=== PATIENT | female | born 1975 | race Caucasian/White ===

== ENCOUNTER 2018-05-30 06:33 | Inpatient (IN) | payer OTHER, SELFPAY ==
--- OUTSIDE RECORDS SUMMARY | 2018-05-30 06:36 | XMS REPORT | Clinical Summary ---
:1975 Author Organization [facility] Address [address] [place] [id number] Care Team Providers Name Role Phone Asked, No Pcp Primary Care Provider Unavailable Allergies Active Allergy Reactions Severity Noted Date Comments No Known Drug Allergies 04/28/2016 Medications Medication Sig Dispensed Refills Start Date End Date Status buPROPion XL Take 2 tablets 180 tablet 3 08/23/2016 Active (WELLBUTRIN XL) 150 (300 mg total) MG 24 hr by mouth daily. tabletIndications: Ataxia dextromethorphan-qu Take 1 capsule 180 capsule 3 08/23/2016 Active inidine (NUEDEXTA) by mouth every 20-10 mg capsule 12 (twelve) hours. dextromethorphan-qu Take 1 capsule 180 capsule 11 08/23/2016 Active inidine (NUEDEXTA) by mouth every 20-10 mg capsule 12 (twelve) hours. buPROPion XL Take 2 tablets 180 tablet 11 08/23/2016 08/23/2017 (WELLBUTRIN XL) 150 (300 mg total) MG 24 hr tablet by mouth daily. 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 Last Filed Vital Signs Not on file Plan of Treatment Health Maintenance Due Date Last Done Comments MMR VACCINES (1 of 1 - Standard 1974 series) VARICELLA VACCINES (1 of 2 - 2-dose 1986 adolescent series) CERVICAL CANCER SCREENING 1994 INFLUENZA VACCINE 02/08/2018 HEPATITIS B VACCINES Aged Out No longer eligible based on patient's age to complete this topic IPV VACCINES Aged Out No longer eligible based on patient's age to complete this topic MENINGOCOCCAL VACCINE Aged Out No longer eligible based on patient's age to complete this topic Results Not on fileafter 05/29/2017 Insurance Payer Benefit Plan / Group Subscriber ID Type Phone Address COMMERCIAL MISC MISC COMMERCIAL xxxxxxxxx Commercial Advance Directives Patient has advance care planning documents on file. For more information, please contact:Alfredo Wilkins[address] [place] [address]
[2018-05-30 07:31] LABS: Protime INR 1.23
[2018-05-30 07:33] LABS: Absolute Lymphocytes (CBC) 1.6 K/uL (0.7-4.9); Absolute Monocytes 0.7 K/uL (0.1-1.3); Absolute Neutrophil 10.7 K/uL (1.8-8.0); Basophils % 0.6 % (0-1.3); Eosinophils % 0.6 % (0-4.4); Lymphocytes % 12.3 % (15.3-44.8); MCH 31.6 pg (27.0-35.0); MCV 93.6 fL (80-100); Monocytes % 5.4 % (3.3-12.3); RBC Red Blood Cell Count 3.84 M/uL (3.86-4.86)
[2018-05-30 07:39] LABS: ALT/SGPT 17 U/L (12-78); AST/SGOT 10 U/L (15-37); Albumin 3.3 g/dL (3.4-5.0); Alkaline Phosphatase 63 U/L (45-117); BUN Blood Urea Nitrogen 9 mg/dL (7-18); Bicarbonate 26 mmol/L (21-32); Bilirubin Direct 0.2 mg/dL (0-0.2); Bilirubin Total 0.4 mg/dL (0.2-1.0); Glucose Level 163 mg/dL (74-106); Lipase 127 U/L (73-393); Magnesium 2.3 mg/dL (1.8-2.4); NT PRO-BNP 27 pg/mL (<125); Potassium 3.4 mmol/L (3.5-5.1); Protein, Total 7.8 g/dL (6.4-8.2); Sodium Level 136 mmol/L (136-145); Troponin (Emerg Dept Use Only) < 0.02 ng/mL (0.0-0.045)
[2018-05-30] MEDS ORDERED: VANCOMYCIN 1 GM/250 ML BAG ONE (07:46)
[2018-05-30] MEDS ORDERED: PIPER/TAZO/NS 3.375gm 3.375 GM/100 ML BAG ONE (07:46)
[2018-05-30] MEDS ORDERED: NA CHLORIDE 0.9% 1,000 ML ONE ×2 (07:46→19:02)
--- NOTE | 2018-05-30 08:23 | ER ---
Nurse's Notes [facility] Name: Vicky Black Age: 42 yrs Sex: Female : 1975 Arrival Date: 05/30/2018 Time: 06:35 Bed 6 Private MD: Diagnosis: Cutaneous abscess of perineum;Chest pain, unspecified;Dyspnea;Elevated white blood cell count Presentation: 05/30 06:45 Presenting complaint: Patient states: "rash with bumps" in groin X 1 week. pt c/o pain ak1 with ambulation. pt c/o pain to right calf with wound X1 week. 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 Transition of care: patient was not received from another setting of care. Onset of symptoms is unknown. Risk Assessment: Do you want to hurt yourself or someone else? Patient reports no desire to harm self or others. Initial Sepsis Screen: Does the patient meet any 2 criteria? No. Patient's initial sepsis screen is negative. Does the patient have a suspected source of infection? No. Patient's initial sepsis screen is negative. Care prior to arrival: None. 06:45 Method Of Arrival: Wheelchair ak1 06:45 Acuity: CHARITO 3 ak1 Triage Assessment: 06:49 General: Appears uncomfortable, obese, Behavior is cooperative. Pain: Complains of pain ak1 in pelvis. EENT: No signs and/or symptoms were reported regarding the EENT system. Neuro: No deficits noted. Cardiovascular: No deficits noted. Respiratory: Reports shortness of breath at rest on exertion no resp distress noted during triage. 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 - Social history:: Smoking status: Patient uses tobacco products, smokes one-half pack cigarettes per day. - Ebola Screening: : No symptoms or risks identified at this time. Screenin:51 Abuse screen: Denies threats or abuse. Denies injuries from another. Nutritional ak1 screening: No deficits noted. Tuberculosis screening: No symptoms or risk factors identified. Fall Risk None identified. Assessment: 06:44 General: Appears in no apparent distress. Behavior is calm, cooperative, appropriate rr5 for age. Pain: Denies pain. Neuro: Level of Consciousness is awake, alert, obeys commands, Oriented to person, place, time, situation, Appropriate for age. Cardiovascular: Capillary refill < 3 seconds Patient's skin is warm and dry. Cardiovascular: Rhythm is regular. Respiratory: Airway is patent Respiratory effort is even, unlabored, Respiratory pattern is regular, symmetrical, GI: Abdomen is round. : No signs and/or symptoms were reported regarding the genitourinary system. EENT: No signs and/or symptoms were reported regarding the EENT system. Derm: Skin has lesions on bilateral groin area. Derm: Skin Wound noted right lower leg Rash noted that is red. 06:51 Respiratory: Airway is patent Respiratory effort is. ak1 07:36 Reassessment: Patient appears in no apparent distress at this time. No changes from hb previously documented assessment. Patient and/or family updated on plan of care and expected duration. Pain level reassessed. 08:30 Reassessment: Patient appears in no apparent distress at this time. No changes from hb previously documented assessment. Patient and/or family updated on plan of care and expected duration. Pain level reassessed. 09:30 Reassessment: Patient appears in no apparent distress at this time. No changes from hb previously documented assessment. Patient and/or family updated on plan of care and expected duration. Pain level reassessed. 10:30 Reassessment: Patient appears in no apparent distress at this time. No changes from hb previously documented assessment. Patient and/or family updated on plan of care and expected duration. Pain level reassessed. 11:30 Reassessment: Patient appears in no apparent distress at this time. No changes from hb previously documented assessment. Patient and/or family updated on plan of care and expected duration. Pain level reassessed. 12:30 Reassessment: Patient appears in no apparent distress at this time. No changes from hb previously documented assessment. Patient and/or family updated on plan of care and expected duration. Pain level reassessed. 13:30 Reassessment: Patient appears in no apparent distress at this time. No changes from hb previously documented assessment. Patient and/or family updated on plan of care and expected duration. Pain level reassessed. Vital Signs: 06:49 BP 144 / 63; Pulse 88; Resp 20; Temp 99.3(O); Pulse Ox 97% on R/A; Weight 127.01 kg ak1 (R); Height 5 ft. 6 in. (167.64 cm) (R); Pain 10/10; 07:36 BP 135 / 68; Pulse 88; Resp 17; Pulse Ox 98% on R/A; hb 08:30 BP 136 / 66; Pulse 86; Resp 16; Pulse Ox 97% on R/A; hb 09:30 BP 128 / 68; Pulse 80; Resp 15; Pulse Ox 100% on R/A; hb 10:30 BP 142 / 66; Pulse 82; Resp 16; Pulse Ox 100% on R/A; Pain 0/10; hb 11:30 BP 138 / 68; Pulse 80; Resp 15; Pulse Ox 100% on R/A; hb 12:15 BP 140 / 72; Pulse 82; Resp 15; Pulse Ox 100% on R/A; hb 13:30 BP 142 / 82; Pulse 66; Resp 17; Pulse Ox 97% ; hb 06:49 Body Mass Index 45.19 (127.01 kg, 167.64 cm) ak1 ED Course: 06:35 Patient arrived in ED. am2 06:42 Jhony Leung MD is Attending Physician. [facility] 06:48 Triage completed. ak1 06:49 Arm band placed on Patient placed in an exam room, on a stretcher, Patient notified of ak1 wait time. 06:50 Inserted saline lock: 20 gauge in left antecubital area, using aseptic technique. rr5 ,using aseptic technique. inserted by eleni Blood collected. 06:51 Patient has correct armband on for positive identification. Bed in low position. Call ak1 light in reach. Side rails up X 1. Adult w/ patient. Pulse ox on. NIBP on. 07:00 Report given to tamiko TORO. rr5 07:04 X-ray completed. Portable x-ray completed in exam room. Patient tolerated procedure jb2 well. 07:05 Oral contrast given. kw1 07:31 Maribell Teague RN is Primary Nurse. hb 08:21 Patricia Torres MD is Hospitalizing Provider. gadiel 08:42 Straight cath inserted, using sterile technique, Returned clear yellow urine. Patient dh3 tolerated well. 15 Fr. specimen obtained. 09:02 Ultrasound completed. Patient tolerated well. Patient moved back from ultrasound. aa4 09:14 CT completed. Patient tolerated procedure well. Patient moved to CT via stretcher. Patient moved back from CT. 14:00 No provider procedures requiring assistance completed. sg 14:24 Patient admitted, IV remains in place. intact, No redness/swelling at site. sg Administered Medications: 07:50 Drug: NS 0.9% 1000 ml Route: IV; Rate: 75 ml/hr; Site: left antecubital; sg 07:50 Drug: Zosyn 3.375 grams Route: IVPB; Infused Over: 60 mins; Site: left antecubital; sg 09:00 Follow up: Response: No adverse reaction; IV Status: Completed infusion sg 11:05 Drug: vancoMYCIN 1 grams Route: IVPB; Infused Over: 2 hrs; Site: left antecubital; sg 14:09 Drug: traMADol 50 mg Route: PO; sg Outcome: 08:22 Decision to Hospitalize by Provider. gadiel 10:40 Admitted to ER Hold. Please see [facility] for further documentation. sg 14:27 Patient left the ED. sg Signatures: Yared Burgess RN Jhony Johnson MD MD cha Buechter, Jesse jb2 Jones, Susan sj Frazier, Amanda aaKaye Mason RN RN ak1 Maribell Teague RN RN Karen Mtz Gregoria Boss 3 Debra Banegas 1 Lon Buck, RN RN rr5 Corrections: (The following items were deleted from the chart) 07:13 06:44 Cardiovascular: Rhythm is rr5 rr5
--- NOTE | 2018-05-30 08:24 | EDPHYS ---
Physician Documentation [facility] Name: Vicky Black Age: 42 yrs Sex: Female : 1975 Arrival Date: 05/30/2018 Time: 06:35 Bed 6 Private MD: ED Physician Jhony Leung HPI: 05/30 06:53 This 42 yrs old Female presents to ER via Wheelchair with complaints of Rash, gadiel Shortness Of Breath. 06:53 The patient's rash thought to be caused by Dermatitis. The rash can be described as gadiel erythematous, pustular. Onset: The symptoms/episode began/occurred 7 day(s) ago. Associated signs and symptoms: Pertinent positives: difficulty breathing, Pain. Treatment given at home: none. 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 - Social history:: Smoking status: Patient uses tobacco products, smokes one-half pack cigarettes per day. - Ebola Screening: : No symptoms or risks identified at this time. ROS: 06:55 Constitutional: Negative for fever, chills, and weight loss, Eyes: Negative for injury, gadiel pain, redness, and discharge, ENT: Negative for injury, pain, and discharge, Neck: Negative for injury, pain, and swelling, Respiratory: Negative for shortness of breath, cough, wheezing, and pleuritic chest pain, Abdomen/GI: Negative for abdominal pain, nausea, vomiting, diarrhea, and constipation, Back: Negative for injury and pain, : Negative for injury, bleeding, discharge, and swelling, MS/Extremity: Negative for injury and deformity, Neuro: Negative for headache, weakness, numbness, tingling, and seizure, Psych: Negative for depression, anxiety, suicide ideation, homicidal ideation, and hallucinations, Allergy/Immunology: Negative for hives, rash, and allergies, Endocrine: Negative for neck swelling, polydipsia, polyuria, polyphagia, and marked weight changes, Hematologic/Lymphatic: Negative for swollen nodes, abnormal bleeding, and unusual bruising. 06:55 Skin: Positive for cellulitis, erythema, swelling, of the groin. Exam: 06:55 Constitutional: This is a well developed, well nourished patient who is awake, alert, gadiel and in no acute distress. Head/Face: Normocephalic, atraumatic. Eyes: Pupils equal round and reactive to light, extra-ocular motions intact. Lids and lashes normal. Conjunctiva and sclera are non-icteric and not injected. Cornea within normal limits. Periorbital areas with no swelling, redness, or edema. ENT: Nares patent. No nasal discharge, no septal abnormalities noted. Tympanic membranes are normal and external auditory canals are clear. Oropharynx with no redness, swelling, or masses, exudates, or evidence of obstruction, uvula midline. Mucous membranes moist. Neck: Trachea midline, no thyromegaly or masses palpated, and no cervical lymphadenopathy. Supple, full range of motion without nuchal rigidity, or vertebral point tenderness. No Meningismus. Chest/axilla: Normal chest wall appearance and motion. Nontender with no deformity. No lesions are appreciated. Cardiovascular: Regular rate and rhythm with a normal S1 and S2. No gallops, murmurs, or rubs. Normal PMI, no JVD. No pulse deficits. Respiratory: Lungs have equal breath sounds bilaterally, clear to auscultation and percussion. No rales, rhonchi or wheezes noted. No increased work of breathing, no retractions or nasal flaring. Abdomen/GI: Soft, non-tender, with normal bowel sounds. No distension or tympany. No guarding or rebound. No evidence of tenderness throughout. Back: No spinal tenderness. No costovertebral tenderness. Full range of motion. MS/ Extremity: Pulses equal, no cyanosis. Neurovascular intact. Full, normal range of motion. Neuro: Awake and alert, GCS 15, oriented to person, place, time, and situation. Cranial nerves II-XII grossly intact. Motor strength 5/5 in all extremities. Sensory grossly intact. Cerebellar exam normal. Normal gait. Psych: Awake, alert, with orientation to person, place and time. Behavior, mood, and affect are within normal limits. 06:55 Skin: abscess, that is moderate sized, of the groin, cellulitis, that is moderate, on the pelvis. 06:58 Musculoskeletal/extremity: DVT Exam: no pain, no swelling, no tenderness, negative [facility] Homans' sign noted on exam, no appreciated bluish discoloration, erythema, increased warmth, that is moderate, of the groin and right femoral area. Vital Signs: 06:49 BP 144 / 63; Pulse 88; Resp 20; Temp 99.3(O); Pulse Ox 97% on R/A; Weight 127.01 kg ak1 (R); Height 5 ft. 6 in. (167.64 cm) (R); Pain 10/10; 07:36 BP 135 / 68; Pulse 88; Resp 17; Pulse Ox 98% on R/A; hb 08:30 BP 136 / 66; Pulse 86; Resp 16; Pulse Ox 97% on R/A; hb 09:30 BP 128 / 68; Pulse 80; Resp 15; Pulse Ox 100% on R/A; hb 10:30 BP 142 / 66; Pulse 82; Resp 16; Pulse Ox 100% on R/A; Pain 0/10; hb 11:30 BP 138 / 68; Pulse 80; Resp 15; Pulse Ox 100% on R/A; hb 12:15 BP 140 / 72; Pulse 82; Resp 15; Pulse Ox 100% on R/A; hb 13:30 BP 142 / 82; Pulse 66; Resp 17; Pulse Ox 97% ; hb 06:49 Body Mass Index 45.19 (127.01 kg, 167.64 cm) ak1 MDM: 06:42 Patient medically screened. [facility] 06:56 Data reviewed: vital signs, nurses notes, lab test result(s), EKG, radiologic studies, [facility] CT scan, plain films. 05/30 06:53 Order name: Basic Metabolic Panel [facility] 05/30 06:53 Order name: CBC with Diff [facility] 05/30 06:53 Order name: LFT's [facility] 05/30 06:53 Order name: Magnesium [facility] 05/30 06:53 Order name: NT PRO-BNP [facility] 05/30 06:53 Order name: PT-INR [facility] 05/30 06:53 Order name: Troponin (emerg Dept Use Only) [facility] 05/30 06:53 Order name: Lipase [facility] 05/30 06:53 Order name: Blood Culture Adult (2) [facility] 05/30 06:53 Order name: Procalcitonin [facility] 05/30 06:53 Order name: Lactate [facility] 05/30 06:53 Order name: Urine Culture [facility] 05/30 06:53 Order name: Wound Culture [facility] 05/30 07:34 Order name: Protime (+INR); Complete Time: 08:13 [facility] 05/30 06:53 Order name: XRAY Chest (1 view) [facility] 05/30 06:58 Order name: CT Abd/Pelvis - W/Contrast [facility] 05/30 07:35 Order name: CBC with Automated Diff; Complete Time: 08:13 [facility] 05/30 07:40 Order name: Basic Metabolic Panel; Complete Time: 08:13 [facility] 05/30 07:40 Order name: Liver (Hepatic) Function; Complete Time: 08:13 [facility] 05/30 07:40 Order name: Troponin (Emerg Dept Use Only); Complete Time: 08:13 [facility] 05/30 07:40 Order name: NT PRO-BNP; Complete Time: 08:13 [facility] 05/30 07:40 Order name: Magnesium; Complete Time: 08:13 [facility] 05/30 07:40 Order name: Lipase; Complete Time: 08:13 [facility] 05/30 07:46 Order name: Lactate; Complete Time: 08:13 [facility] 05/30 08:16 Order name: US Extremity Venous W Compression Alvin [facility] 05/30 08:18 Order name: Procalcitonin; Complete Time: 12:35 [facility] 05/30 08:59 Order name: Urine Dipstick--Ancillary (enter results) 05/30 08:59 Order name: Urine --Ancillary (enter results) 05/30 10:00 Order name: Urine --Ancillary; Complete Time: 12:35 [facility] 05/30 10:00 Order name: Urine Dipstick-Ancillary; Complete Time: 12:35 [facility] 05/30 06:53 Order name: EKG; Complete Time: 06:54 [facility] 05/30 06:53 Order name: Cardiac monitoring; Complete Time: 06:57 [facility] 05/30 06:53 Order name: EKG - Nurse/Tech; Complete Time: 06:57 [facility] 05/30 06:53 Order name: IV Saline Lock; Complete Time: 07:06 [facility] 05/30 06:53 Order name: Labs collected and sent; Complete Time: 07:06 [facility] 05/30 06:53 Order name: O2 Per Protocol; Complete Time: 06:57 [facility] 05/30 06:53 Order name: O2 Sat Monitoring; Complete Time: 06:57 [facility] 05/30 06:53 Order name: Urine Dipstick-Ancillary (obtain specimen); Complete Time: 08:54 [facility] 05/30 08:21 Order name: CT Chest For PE Angio [facility] 05/30 09:08 Order name: RAD; Complete Time: 12:35 [facility] 05/30 09:35 Order name: US; Complete Time: 12:35 [facility] 05/30 09:38 Order name: CT; Complete Time: 12:35 [facility] 05/30 09:41 Order name: CT; Complete Time: 12:35 [facility] 05/30 10:47 Order name: Diet Regular; Complete Time: 10:48 hb Administered Medications: 07:50 Drug: NS 0.9% 1000 ml Route: IV; Rate: 75 ml/hr; Site: left antecubital; sg 07:50 Drug: Zosyn 3.375 grams Route: IVPB; Infused Over: 60 mins; Site: left antecubital; sg 09:00 Follow up: Response: No adverse reaction; IV Status: Completed infusion sg 11:05 Drug: vancoMYCIN 1 grams Route: IVPB; Infused Over: 2 hrs; Site: left antecubital; sg 14:09 Drug: traMADol 50 mg Route: PO; sg Disposition: 05/30/18 08:22 Hospitalization ordered by Patricia Torres for Inpatient Admission. Preliminary diagnosis are Cutaneous abscess of perineum, Chest pain, unspecified, Dyspnea, Elevated white blood cell count. - Bed requested for Telemetry/MedSurg (Inpatient). - Status is Inpatient Admission. sg - Condition is Fair. - Problem is new. - Symptoms have improved. UTI on Admission? No Signatures: Dispatcher [employer] EDMS Macie Elizondo Steven, RN RN sg Anderson, Corey, MD MD cha Krenek, Amber RN RN ak1 Iwona Vega RN RN df Corrections: (The following items were deleted from the chart) 10:40 08:22 Hospitalization Ordered by Patricia Torres MD for Inpatient Admission. Preliminary bd diagnosis is Cutaneous abscess of perineum; Chest pain, unspecified; Dyspnea; Elevated white blood cell count. Bed requested for Telemetry/MedSurg (Inpatient). Status is Inpatient Admission. Condition is Fair. Problem is new. Symptoms have improved. UTI on Admission? No. gadiel 12:41 10:40 05/30/2018 08:22 Hospitalization Ordered by Patricia Torres MD for Inpatient df Admission. Preliminary diagnosis is Cutaneous abscess of perineum; Chest pain, unspecified; Dyspnea; Elevated white blood cell count. Bed requested for [facility] ER HOLD. Status is Inpatient Admission. Condition is Fair. Problem is new. Symptoms have improved. UTI on Admission? No. bd 14:27 12:41 05/30/2018 08:22 Hospitalization Ordered by Patricia Torres MD for Inpatient sg Admission. Preliminary diagnosis is Cutaneous abscess of perineum; Chest pain, unspecified; Dyspnea; Elevated white blood cell count. Bed requested for Telemetry/MedSurg (Inpatient). Status is Inpatient Admission. Condition is Fair. Problem is new. Symptoms have improved. UTI on Admission? No. df
--- NOTE | 2018-05-30 09:07 | RAD REPORT ---
EXAM DESCRIPTION: RAD - Chest Single View - 05/30/2018 7:06 am CLINICAL HISTORY: Chest pain;Dyspnea Chest pain. COMPARISON: CHEST PA AND LAT 2 VIEW dated 10/30/2014 FINDINGS: Portable technique limits examination quality. The lungs are grossly clear. The heart is normal in size. No displaced fractures. IMPRESSION: No acute intrathoracic process suspected.
--- NOTE | 2018-05-30 09:33 | RAD REPORT ---
EXAM DESCRIPTION: US - Extrem Venous W Compress Alvin - 05/30/2018 9:00 am CLINICAL HISTORY: PAIN Bilateral leg edema and swelling. COMPARISON: No comparisons TECHNIQUE: Real-time sonographic interrogation of the left and right lower extremity deep venous sys tems was performed. FINDINGS: Normal compressibility, flow augmentation, phasic flow and spontaneous flow is identified in both the left and right lower extremity deep venous systems. IMPRESSION: No sonographic evidence of left or right lower extremity deep venous thrombosis.
--- NOTE | 2018-05-30 09:36 | EKG ---
Test Date: 2018-05-30 Test Time: 06:52:00 Dispatcher [employer]: ANA MEASUREMENT RESULTS: Intervals: Rate: 86 OK: 140 QRSD: 76 QT: 362 QTc: 433 [place]: P: 26 OK: 140 QRS: 50 T: 24 INTERPRETIVE STATEMENTS: Normal sinus rhythm Low voltage QRS Borderline ECG Compared to ECG 10/07/1995 20:08:00 Low QRS voltage now present Electronically Signed On 05-30-18 09:35:16 [employer] OPERATOR by Jordy Medina
--- NOTE | 2018-05-30 09:37 | RAD REPORT ---
EXAM DESCRIPTION: CT - Chest For Pe Angio - 05/30/2018 9:18 am CLINICAL HISTORY: Chest pain. Chest pain;Dyspnea COMPARISON: No comparisons TECHNIQUE: CT angiogram of the pulmonary arteries was performed with MIP. All CT scans are performed using dose optimization technique as appropriate and may include automated exposure control or mA/KV adjustment according to patient size. FINDINGS: No evidence of pulmonary thromboembolism. No acute aortic finding demonstrated. The lungs are clear. No significant pericardial or pleural fluid. No concerning bony finding. IMPRESSION: No evidence of pulmonary thromboembolism. No acute lung findings.
--- NOTE | 2018-05-30 09:41 | RAD REPORT ---
EXAM DESCRIPTION: CTAbdomen Pelvis W Contrast - 05/30/2018 9:18 am CLINICAL HISTORY: Abdominal pain. lower abd pain, right groin abscess;Abd pain COMPARISON: No comparisons TECHNIQUE: Biphasic CT imaging of the abdomen and pelvis was performed with 100 ml non-ionic IV cont rast. All CT scans are performed using dose optimization technique as appropriate and may include automated exposure control or mA/KV adjustment according to patient size. FINDINGS: The lung bases are clear. The liver, spleen, pancreas, adrenal glands and kidneys are within normal limits. Cholecystectomy cli ps. No bowel obstruction, free air, free fluid or abscess. The appendix is normal. No evidence of signi ficant lymphadenopathy. No suspicious bony findings. Inflammatory phlegmon with several enlarged lymph nodes is seen in the right groin without focal flui d collection to suggest abscess. IMPRESSION: Right groin phlegmon is present with several mildly prominent lymph nodes. No fluid angela ection seen to indicate abscess.
[2018-05-30 09:59] LABS: Urine Blood NEGATIVE (NEG); Urine Glucose NEGATIVE (NEG); Urine Protein NEGATIVE (NEG)
[2018-05-30] MEDS ORDERED: INFLUENZA VACCINE (for 3y+) 0.5 ML DOSE IMVAC ONE (14:00)
[2018-05-30] MEDS ORDERED: TRAMADOL HCL 50 MG TAB ONE (14:12)
[2018-05-30] MEDS ORDERED: ACETAMINOPHEN 500 MG TAB PO PRN (14:23)
[2018-05-30] MEDS ORDERED: ONDANSETRON 4 MG/2 ML VIAL IV PRN (14:23)
[2018-05-30] MEDS: NA CHLORIDE 0.9% 1,000 ML IV SCH ×2 (15:44→23:55)
[2018-05-30] MEDS: NICOTINE 14 MG/PAT TD SCH (15:44)
[2018-05-30 17:11] VITALS: BMI 39.1
--- NOTE | 2018-05-30 17:33 | P.HP ---
Certification for Inpatient Patient admitted to: Inpatient With expected LOS: >2 Midnights Patient will require the following post-hospital care: None Practitioner: I am a practitioner with admitting privileges, knowledge of patient current condition, hospital course, and medical plan of care. Services: Services provided to patient in accordance with Admission requirements found in Title 42 Section 412.3 of the Code of Federal Regulations Patient History Date of Service: 05/30/18 Reason for admission: Labial abscess History of Present Illness: This is a 42-year-old female with significant past medical history who presented to the ED complaining of having some vaginal pain. Patient stated that her rash pain has been going on for about 2-3 weeks and has got progressively worse. Patient noted that her right labial fold has some drainage that started about 2 weeks ago and has been getting progressively worse as well. Patient denies having any fever chills nausea vomiting or any other associated symptoms. Denies having similar episodes in the past. Patient states that overall she is in general state of health before this happened. Patient has not taken any antibiotics and has not seen her primary care provider regarding this. No other complaints to offer at this time -in the ER patient was found to have right groin abscess on the right labial region which was noted to be intubated and extensive in size and thus patient was admitted for further care Allergies No Known Allergies Allergy (Verified 05/30/18 14:51) Home Medications: Ibuprofen [Advil] 4 tab PO BID PRN 05/30/18 - Past Medical/Surgical History Has patient received pneumonia vaccine in the past: No -: Cerebellum Ataxia -: Section -: Tubal Ligation -: Cholecystectomy - Social History Smoking Status: Never smoker Alcohol use: No CD- Drugs: No Caffeine use: No Place of Residence: Home Review of Systems 10-point ROS is otherwise unremarkable Physical Examination - Vital Signs Temperature: 97.2 F Blood Pressure: 115/58 Pulse: 77 Respirations: 22 Pulse Ox (%): 96 - Physical Exam General: Alert, In no apparent distress HEENT: Atraumatic, PERRLA, Mucous membr. moist/pink, EOMI, Sclerae nonicteric Neck: Supple, 2+ carotid pulse no bruit, No LAD, Without JVD or thyroid abnormality Respiratory: Clear to auscultation bilaterally, Normal air movement Cardiovascular: Regular rate/rhythm, Normal S1 S2 Gastrointestinal: Normal bowel sounds, No tenderness Musculoskeletal: No tenderness Integumentary: Tenderness/swelling, Erythema, Warmth Neurological: Normal gait, Normal speech, Normal strength at 5/5 x4 extr, Normal tone, Normal affect Lymphatics: No axilla or inguinal lymphadenopathy External genitalia: Edema, Lesions, Tenderness (A right labial abscess which is intubated with small opening draining purulent discharge) - Studies Laboratory Data (last 24 hrs) 05/30/18 06:45: PT 14.5 H, INR 1.23 05/30/18 06:45: WBC 13.2 H, Hgb 12.2, Hct 36.0, Plt Count 215 05/30/18 06:45: Sodium 136, Potassium 3.4 L, BUN 9, Creatinine 0.70, Glucose 163 H, Magnesium 2.3, Total Bilirubin 0.4, AST 10 L, ALT 17, Alkaline Phosphatase 63, Lipase 127 Assessment and Plan - Problems (Diagnosis) (1) Abscess of right genital labia Current Visit: Yes Status: Acute Plan: Right labial abscess -general surgery consult at this time. Recommendations appreciated at this time -patient was planned to go to the OR today however patient went ahead and had her lunch despite the nursing staff telling her not to. Patient rescheduled for the OR tomorrow morning. -will continue with IV antibiotics at this time. -blood culture collected. Wound culture to be collected during the OR (2) Cellulitis of skin Current Visit: Yes Status: Acute Plan: See # 1. Discharge Plan: Home Plan to discharge in: 48 Hours - Advance Directives Does patient have a Living Will: No Does patient have a Durable POA for Healthcare: No - Code Status/Comfort Care Code Status Assessed: Yes Critical Care: No
[2018-05-30] MEDS: CLINDAMYCIN INJ 600 MG in NA CHLORIDE 0.9% 50 ML IV SCH ×2 (18:00→23:54)
[2018-05-30] MEDS ORDERED: LIDOCAINE 1% MPF 5 ML VIAL ONE (18:11)
[2018-05-30] MEDS ORDERED: MIDAZOLAM HCL 2 MG/2 ML INJ ONE (18:11)
[2018-05-30] MEDS ORDERED: PROPOFOL 200 MG/20 ML VIAL IV ONE (18:11)
[2018-05-30] MEDS ORDERED: FENTANYL CITR 100 MCG/2 ML ONE (18:11)
[2018-05-30] MEDS ORDERED: ONDANSETRON HCL 40 MG/20 ML VIAL ONE (18:12)
[2018-05-30] MEDS ORDERED: KETOROLAC 30 MG/ML INJ ONE (18:12)
[2018-05-30] MEDS ORDERED: BUPIVACAINE 0.25% PF 10 ML VIAL ONE (18:14)
[2018-05-30] MEDS ORDERED: BUPIVACA 0.25%/EPI 0.0005% MDV 50 ML VIAL ONE (18:14)
--- NOTE | 2018-05-30 18:36 | CON ---
Date of Consultation: 05/30/2018 SURGICAL CONSULT Brief History Of Present Illness: The patient is a 42-year-old female, who presents to the ER via wheelchair with rash and shortness of breath and draining fluid collection from the right mariann in area. She states that she started having drainage from the right groin with cellulitis, which has been continuously draining since then a purulent pus-type fluid. She has had some pain, irritation, and low-grade fevers associated with this. She states that the fluid will get more full and then ev entually spontaneously drain. She gets some symptomatic improvement, but no resolution with these. She states the symptoms have been worse over the past 7 days. Past Medical History: Significant for cerebellum ataxia. Past Surgical History: , tubal ligation, and cholecystectomy. Social History: She smokes half a pack per day. She has a 20+ pack-year history. Allergies: NO KNOWN DRUG ALLERGIES. Physical Examination: General: At the time of my examination, she is awake, alert, and oriented. Her BMI is approximately 45. Psychiatric: She is appropriate, conversive, sitting up in the chair. She is eating currently at 12 :30 and I told her to discontinue eating at this point. She only had a few bites of the meal though. HEENT: Her oropharynx is clear. She has poor dentition. Neck: Supple with no JVD. Chest: Normal expansion and excursion. Cardiovascular: Regular rate and rhythm. Pulmonary: Clear to auscultation bilaterally. Abdomen: Soft. Skin: Focused examination of the right groin area shows a draining groin abscess with tenderness in the area and cellulitis. There is purulent fluid emanating from this. Laboratory Data: She had a laboratory exam, reveals white blood cell count of 13.2, hemoglobin is 12 .2, her hematocrit is 36.0, platelet count is 215, neutrophils are 81%. Her PT is 14.5, INR 1.23. S odium 136, potassium 3.4, chloride 103, carbon dioxide 26, BUN 9, creatinine is 0.7, glucose is 163, lactic acid 0.8, magnesium 2.3, total bilirubin 0.4, alkaline phosphatase 53, procalcitonin is less t spivey 0.05, lipase 127. UA was essentially negative. Urine test was negative. She had mult iple imaging tests including a chest x-ray performed which is officially read as no acute intrathorac ic process suspected. She had an extremity venous study, which showed no evidence of DVT in the left or right lower extremity. She additionally had a CT chest, thorax CTA for PE protocol which showed no evidence of PE and no acute lung findings. She additionally had an abdomen and pelvis CT, which i s officially read as right groin phlegmon was present with several mildly prominent lymph nodes, no f luid collection was seen to indicate abscess, there was inflammatory phlegmon in the area though. Assessment And Plan: This is a 42-year-old female who comes in with signs and symptoms of a draining abscess, incompletely drained from the right groin. 1.IV fluid hydration. 2.Antibiotic coverage. 3.I have explained the risks, benefits, and alternatives of incision and drainage and opening of thi s abscess and packing with wound care and culture. She agrees to proceed as indicated. I have expla ined the risks, benefits, and alternatives of this plan which are including but not limited to bleedi ng, infection, damage to surrounding tissue, need for further operation or procedures. The patient a grees to proceed. CHARLA/CLAUDIA Voice ID: [id number] Report ID: [id number]
--- NOTE | 2018-05-30 18:49 | P.OP ---
Preoperative diagnosis: Right groin abscess Postoperative diagnosis: Right groin abscess Primary procedure: incision and drainage of Right groin abscess Anesthesia: MAC + Local Estimated blood loss: <15cc Specimen: cultures sent Findings: 4cm deep abscess with fat necrosis Complications: None Transferred to: Recovery Room Condition: Good
[2018-05-30] MEDS ORDERED: POTASSIUM CL SA 10 MEQ TAB PO ONE (21:00)
[2018-05-30] MEDS: TRAMADOL HCL 50 MG TAB PO PRN (21:31)
[2018-05-30] MEDS ORDERED: NA CHLORIDE 0.9% 50 ML ONE ×2 (23:12)
[2018-05-30] MEDS ORDERED: CLINDAMYCIN IV 150 MG/ML (6 mL) VIAL ONE (23:13)
--- NOTE | 2018-05-31 05:07 | OP ---
Date of Procedure: 05/30/2018 Surgeon: Mckayla Horton MD, Preoperative Diagnosis: Right groin abscess. Postoperative Diagnosis: Right groin abscess. Procedure Performed: Incision and drainage of right groin abscess. Anesthesia: MAC plus local. Estimated Blood Loss: Less than 15 cc. Specimen: Cultures were sent as a specimen for both aerobic and anaerobic culture. Findings: A 4 cm deep abscess with fat necrosis pushing towards the medial aspect of the pubic bone and pubic symphysis. Complications: None. Disposition: Transferred to recovery room in good condition. Procedure In Detail: After informed consent was obtained, the patient was brought to the operating r oom, prepped and draped in the usual sterile fashion. After adequate anesthesia achieved, a small pu nctate draining wound of the right groin area in the groin crease was used as a marker. This area of skin was opened for approximately 2 cm. Purulent fluid was obtained at this point and a multilocula mckayla abscess was appreciated with some fat necrosis evident. I digitally removed all septations and l oculations and found that the cavity was stretched in the superomedial aspect towards the pubic symph ysis in the superficial position onto the pubic mound and mons pubis region. It did not involve the labia. I cleaned out all septations and irrigated out all the necrotic tissue and used a curette to scrape out all remaining necrotic tissue at this point until only viable tissue was left behind. I t hen irrigated multiple times. Hemostasis was achieved with electrocautery and then the wound was irr igated one last time, inspected, and packed with half-inch plain packing and a sterile dressing was p laced over top. The patient tolerated the procedure well without evidence of complications, transfer red to the PACU in good condition. All counts were correct at the end of the case. CHARLA/CLAUDIA Voice ID: [id number] Report ID: [id number]
[2018-05-31] MEDS: CLINDAMYCIN INJ 600 MG in NA CHLORIDE 0.9% 50 ML IV SCH (05:12)
[2018-05-31] MEDS: TRAMADOL HCL 50 MG TAB PO PRN ×2 (05:12→10:21)
[2018-05-31 06:48] LABS: Absolute Lymphocytes (CBC) 1.5 K/uL (0.7-4.9); Absolute Monocytes 0.6 K/uL (0.1-1.3); Absolute Neutrophil 9.5 K/uL (1.8-8.0); Basophils % 0.3 % (0-1.3); Eosinophils % 1.1 % (0-4.4); Hematocrit 31.1 % (36.0-45.0); Lymphocytes % 12.4 % (15.3-44.8); MCH 31.8 pg (27.0-35.0); MCV 92.8 fL (80-100); MPV 8.9 fL (7.6-11.3); Monocytes % 4.8 % (3.3-12.3); RBC Red Blood Cell Count 3.36 M/uL (3.86-4.86)
[2018-05-31 07:14] LABS: ALT/SGPT 17 U/L (12-78); AST/SGOT 11 U/L (15-37); Alkaline Phosphatase 53 U/L (45-117); BUN Blood Urea Nitrogen 8 mg/dL (7-18); Bicarbonate 26 mmol/L (21-32); Bilirubin Total 0.4 mg/dL (0.2-1.0); Glucose Level 140 mg/dL (74-106); Phosphorus 3.3 mg/dL (2.5-4.9); Protein, Total 6.9 g/dL (6.4-8.2); Sodium Level 142 mmol/L (136-145)
[2018-05-31] MEDS: NICOTINE 14 MG/PAT TD SCH (10:20)
[2018-05-31] MEDS: NA CHLORIDE 0.9% 1,000 ML IV SCH (10:23)
--- NOTE | 2018-05-31 11:53 | P.PN ---
Subjective Date of Service: 05/31/18 Chief Complaint: Labial abscess Subjective: Improving (patient doing well, dressings clean) Physical Examination - Vital Signs Temperature: 98.3 F Blood Pressure: 113/53 Pulse: 82 Respirations: 20 Pulse Ox (%): 95 - Physical Exam General: Alert, In no apparent distress, Cooperative Integumentary: Other (wound well packed) Assessment And Plan - Current Problems (Diagnosis) (1) Cellulitis of skin Onset Date: 05/31/18 Current Visit: Yes Status: Acute Plan: - continue dressing changes
[2018-05-31 15:25] VITALS: O2SAT 95
--- NOTE | 2018-05-31 15:33 | ECHO ---
HEIGHT: 5 ft 8 in WEIGHT: 257 lb 1.6 oz DATE OF STUDY: 05/31/[address]: Jhony Leung MD 2-DIMENSIONAL: YES M.MODE: YES DOPPLER: YES COLOR FLOW: YES TDS: YES PORTABLE: DEFINITY: BUBBLE STUDY: DIAGNOSIS: CHEST PAIN AND SHORTNESS OF BREATH. CARDIAC HISTORY: CATHERIZATION: NO SURGERY: NO PROSTHETIC VALVE: NO PACEMAKER: NO MEASUREMENTS (cm) DIASTOLIC (NORMALS) SYSTOLIC (NORMALS) IVSd 1.3 (0.6-1.2) LA Diam 4.3 (1.9-4.0) LVEF 60-69% LVIDd 3.9 (3.5-5.7) LVIDs 3.0 (2.0-3.5) %FS 24% LVPWd 1.2 (0.6-1.2) Ao Diam 2.5 (2.0-3.7) 2 DIMENSIONAL ASSESSMENT: RIGHT ATRIUM: NORMAL LEFT ATRIUM: DILATED RIGHT VENTRICLE: NORMAL LEFT VENTRICLE: LEFT VENTRICULAR HYPERTROPHY TRICUSPID VALVE: NORMAL MITRAL VALVE: NORMAL PULMONIC VALVE: NORMAL AORTIC VALVE: NORMAL PERICARDIAL EFFUSION: NONE AORTIC ROOT: NORMAL LEFT VENTRICULAR WALL MOTION: NORMAL DOPPLER/COLOR FLOW: NORMAL COMMENTS: NORMAL LEFT VENTRICULAR EJECTION FRACTION. LEFT VENTRICULAR HYPERTROPHY. DILATED LEFT ATRIUM. NORMAL CARDIAC DOPPLER. TECHNOLOGIST: CHRISTO GANDARA
[2018-05-31 15:53] VITALS: BP 119/57; TEMP 99
--- NOTE | 2018-05-31 16:30 | P.DS ---
Admission Date: 05/30/18 Discharge Date: 05/31/18 Disposition: ROUTINE DISCHARGE Discharge Condition: GOOD Reason for Admission: Labial abscess - Problems (1) Abscess of right genital labia Onset Date: 05/31/18 Status: Acute (2) Cellulitis of skin Onset Date: 05/31/18 Status: Acute Brief History of Present Illness: This is a 42-year-old female with significant past medical history who presented to the ED complaining of having some vaginal pain. Patient stated that her rash pain has been going on for about 2-3 weeks and has got progressively worse. Patient noted that her right labial fold has some drainage that started about 2 weeks ago and has been getting progressively worse as well. Patient denies having any fever chills nausea vomiting or any other associated symptoms. Denies having similar episodes in the past. Patient states that overall she is in general state of health before this happened. Patient has not taken any antibiotics and has not seen her primary care provider regarding this. No other complaints to offer at this time -in the ER patient was found to have right groin abscess on the right labial region which was noted to be intubated and extensive in size and thus patient was admitted for further care Hospital Course: Overall during the hospital stay patient remained stable Patient was initially admitted to the hospital for right labial abscess. General surgery was consulted who did an I and D in the OR. Patient's abscess was drained completely. Patient was initially started on IV clindamycin was switched over to oral clindamycin. Patient's was taught how to do wound packing. Patient then was discharged home under stable condition was asked to follow up with general surgery in about 1-2 weeks post discharge. Patient was continued on clindamycin on discharge Vital Signs/Physical Exam: Temp Pulse Resp BP Pulse Ox 99 F 91 H 20 119/57 L 95 05/31/18 12:00 05/31/18 12:00 05/31/18 12:00 05/31/18 12:00 05/31/18 12:00 General: Alert, In no apparent distress HEENT: Atraumatic, PERRLA, EOMI Neck: Supple, JVD not distended Respiratory: Clear to auscultation bilaterally, Normal air movement Cardiovascular: Regular rate/rhythm, Normal S1 S2 Gastrointestinal: Normal bowel sounds, No tenderness Musculoskeletal: No tenderness Integumentary: Tenderness/swelling, Erythema Neurological: Normal speech, Normal tone, Normal affect Lymphatics: No axilla or inguinal lymphadenopathy Laboratory Data at Discharge: WBC 11.7 K/uL (4.3-10.9) H 05/31/18 05:54 Hgb 10.7 g/dL (12.0-15.0) L 05/31/18 05:54 Hct 31.1 % (36.0-45.0) L 05/31/18 05:54 Plt Count 199 K/uL (152-406) 05/31/18 05:54 PT 14.5 SECONDS (9.5-12.5) H 05/30/18 06:45 INR 1.23 05/30/18 06:45 Sodium 142 mmol/L (136-145) 05/31/18 05:54 Potassium 4.0 mmol/L (3.5-5.1) 05/31/18 05:54 BUN 8 mg/dL (7-18) 05/31/18 05:54 Creatinine 0.60 mg/dL (0.55-1.3) 05/31/18 05:54 Glucose 140 mg/dL (74-106) H 05/31/18 05:54 Phosphorus 3.3 mg/dL (2.5-4.9) 05/31/18 05:54 Magnesium 2.3 mg/dL (1.8-2.4) 05/30/18 06:45 Total Bilirubin 0.4 mg/dL (0.2-1.0) 05/31/18 05:54 AST 11 U/L (15-37) L 05/31/18 05:54 ALT 17 U/L (12-78) 05/31/18 05:54 Alkaline Phosphatase 53 U/L (45-117) 05/31/18 05:54 Lipase 127 U/L (73-393) 05/30/18 06:45 Home Medications: Clindamycin HCl 300 mg PO QID #40 capsule 05/31/18 Codeine/APAP [Tylenol W/Codeine #3 tab] 1 tab PO Q6HP PRN #15 tab 05/31/18 New Medications: Codeine/APAP [Tylenol W/Codeine #3 tab] 1 tab PO Q6HP PRN #15 tab PRN Reason: Pain Clindamycin HCl 300 mg PO QID #40 capsule Diet: Regular Activity: Ad harrison Followup: Duncan Horton MD [ACTIVE - CAN ADMIT] - 1-2 Weeks (Call for appointment.)
== END 2018-05-31 15:02 | disposition home health service (06) | DRG 603 ==
LOC: ER 06:33 → ERHOLD 08:23 → 2ND 13:26
PROVIDERS: ADMIT Family Medicine; ATTEND Family Medicine
PROC: 0H9AXZZ Drainage of Inguinal Skin, External Approach (ICD-10-PCS; principal; 2018-05-30 18:30)
DX: L02.214 Cutaneous abscess of groin (principal)
CPT/HCPCS: 36415; 51702; 71045; 71275; 74177; 80048; 80053; 80076; 81003; 81025; 83605; 83690; 83735; 83880; 84100; 84145; 84484; 85025; 85610; 87040; 87070; 87075; 87077; 87086; 87088; 87186; 87205; 93005; 93306; 93970; 96365; 96375; 99285; G0008; J2250; J2405; J2543; J2704; J3010; J3370; J7030; Q2035; Q9967

== ENCOUNTER 2019-08-15 16:08 | Inpatient (IN) | payer OTHER, SELFPAY ==
--- OUTSIDE RECORDS SUMMARY | 2019-08-15 16:10 | XMS REPORT ---
:1975 [facility] Address [address] [place] [address] Care Team Providers Name Role Phone Unavailable Unavailable Unavailable Problems This patient has no known problems. Allergies, Adverse Reactions, Alerts This patient has no known allergies or adverse reactions. Medications This patient has no known medications.
[2019-08-15] MEDS ORDERED: METHYLPREDNISOLONE 125 MG INJ ONE (16:16)
[2019-08-15] MEDS ORDERED: LEVALBUTEROL 1.25 MG/3 ML NEB ONE (16:16)
[2019-08-15] MEDS ORDERED: NA CHLORIDE 0.9% 500 ML ONE (16:16)
[2019-08-15] MEDS ORDERED: MAGNESIUM SULFATE 1 gm IVPB 1 GM/100 ML BAG IV ONE (16:16)
[2019-08-15 16:33] LABS: Absolute Lymphocytes (CBC) 0.7 K/uL (0.7-4.9); Basophils % 0.1 % (0-1.3); Hematocrit 38.2 % (36.0-45.0); Lymphocytes % 8.6 % (15.3-44.8); RBC Red Blood Cell Count 4.02 M/uL (3.86-4.86)
[2019-08-15] MEDS ORDERED: CEFTRIAXONE/SWI 1gm 1 GM/10 ML SYR ONE (17:02)
[2019-08-15 17:06] LABS: Potassium 3.1 mmol/L (3.5-5.1); Troponin (Emerg Dept Use Only) 0.4 ng/mL (0.0-0.045)
--- NOTE | 2019-08-15 17:07 | RAD REPORT ---
EXAM DESCRIPTION: RAD - Chest Single View - 08/15/2019 4:42 pm CLINICAL HISTORY: DYSPNEA Chest pain. COMPARISON: Chest Single View dated 05/30/2018; CHEST PA AND LAT 2 VIEW dated 10/30/2014 FINDINGS: Portable technique limits examination quality. Interstitial markings are mildly prominent likely indicating bronchitis or viral pneumonitis. The hea rt is upper limit of normal in size. No displaced fractures.
--- NOTE | 2019-08-15 17:41 | EDPHYS ---
Physician Documentation [facility] Name: Vicky Black Age: 43 yrs Sex: Female : 1975 Arrival Date: 08/15/2019 Time: 16:10 Bed 3 Private MD: Galo Stringer V ED Physician Kyle Dempsey HPI: 08/15 16:17 This 43 yrs old Female presents to ER via Unassigned with complaints of rn Breathing Difficulty. 16:17 The patient has shortness of breath at rest. Onset: The symptoms/episode began/occurred rn today. Duration: The symptoms are continuous. The patient's shortness of breath has no apparent modifying factors. Severity of symptoms: At their worst the symptoms were moderate in the emergency department the symptoms are unchanged. It is unknown whether or not the patient has had similar symptoms in the past. The patient has not recently seen a physician. states fever last night, cough, difficulty breathing today, no trauma. Reports full code and intubation if needs.. 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 - Coronavirus screen:: The patient has NOT traveled to [place], [place], or [place] in the past 14 days. - Family history:: not pertinent. - Social history:: Smoking status: Patient reports the use of cigarette tobacco products, smokes one-half pack cigarettes per day. - Hospitalizations: : No recent hospitalization is reported. - Ebola Screening: : Patient denies travel to an Ebola-affected area in the 21 days before illness onset. 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 ENT: dry MM, no stridor or swelling Neck: No JVD Cardiovascular: Tachycardic, regular Respiratory: + moderate tachypnea with shallow breaths, poor inspiratory air movement, + grunting Abdomen/GI: soft, non-tender MS/ Extremity: Pulses equal, no cyanosis. Neurovascular intact Neuro: Awake, repsonds to voice and answers questions, moderate respiratory distress Vital Signs: 16:15 BP 131 / 67; Pulse 128; Resp 48 S; Temp 98(O); Pulse Ox 64% on R/A; ca1 16:22 Temp 101.3(TE); sg 16:25 Weight 111.13 kg; sg 16:28 Weight 111.13 kg (R); tw2 16:40 BP 96 / 23; Pulse 121; Resp 39; Pulse Ox 100% on 50% BiPAP; tw2 16:44 BP 101 / 33; Pulse 121; Resp 40; Pulse Ox 98% on BiPAP; tw2 16:49 BP 108 / 76; Pulse 120; Resp 37; Pulse Ox 97% on BiPAP; tw2 17:07 BP 93 / 70; Pulse 116; Resp 38; Temp 98.4(TE); Pulse Ox 97% on BiPAP; tw2 17:19 BP 108 / 55; Pulse 114; Resp 34; Pulse Ox 99% on BiPAP; tw2 17:57 BP 106 / 77; Pulse 112; Resp 33; Temp 102.3(C); Pulse Ox 95% on BiPAP; tw2 18:25 BP 104 / 57; Pulse 110; Resp 36; Temp 101.9(C); Pulse Ox 95% on BiPAP; tw2 18:40 BP 105 / 56; Pulse 107; Resp 29 A; Pulse Ox 95% on BiPAP; Pain 0/10; jl7 19:15 BP 101 / 56; Pulse 101; Resp 34; Temp 100.8(C); Pulse Ox 95% on 50% BiPAP; lp1 20:06 BP 103 / 57; Pulse 99; Resp 29; Temp 99.6(C); Pulse Ox 96% on 50% BiPAP; lp1 16:40 15/8 rate 30 tw2 MDM: 16:13 Patient medically screened. rn 17:38 Differential diagnosis: pneumonia, Pneumothorax pulmonary edema, Sepsis. Data reviewed: rn vital signs, nurses notes, lab test result(s), EKG, radiologic studies, plain films, and as a result, I will admit patient. Counseling: I had a detailed discussion with the patient and/or guardian regarding: the historical points, exam findings, and any diagnostic results supporting the discharge/admit diagnosis, lab results, radiology results, the need for further work-up and treatment in the hospital. Response to treatment: the patient's symptoms have mildly improved after treatment, and as a result, I will admit patient. Admission orders: after a detailed discussion of the patient's condition and case, the admit orders are written by me. ED course: Pt feels better, vitals improving, ABG ok, on bipap, will increase rate and admit to ICU.. 18:07 ED course: Spoke with Dr. Stringer, will admit to ICU. . rn 08/15 16:15 Order name: Blood Culture Adult (2) rn 08/15 16:15 Order name: BMP rn 08/15 16:15 Order name: CBC with Diff rn 08/15 16:15 Order name: NT PRO-BNP rn 08/15 16:15 Order name: Troponin (emerg Dept Use Only) rn 08/15 16:15 Order name: Procalcitonin rn 08/15 16:15 Order name: Lactate rn 08/15 16:15 Order name: Flu rn 08/15 16:36 Order name: Glucose, Ancillary Testing; Complete Time: 16:52 EDMS 08/15 16:42 Order name: CBC with Automated Diff; Complete Time: 16:52 EDMS 08/15 16:44 Order name: Lactate; Complete Time: 16:52 EDMS 08/15 16:52 Order name: Influenza Screen (A ; Complete Time: 16:52 EDMS 08/15 16:59 Order name: ABG rn 08/15 17:05 Order name: Procalcitonin; Complete Time: 17:06 EDMS 08/15 16:15 Order name: XRAY CXR (1 view) rn 08/15 16:15 Order name: BIPAP rn 08/15 17:09 Order name: Basic Metabolic Panel; Complete Time: 17:14 EDMS 08/15 17:09 Order name: Troponin (Emerg Dept Use Only); Complete Time: 17:14 EDMS 08/15 17:09 Order name: NT PRO-BNP; Complete Time: 17:14 EDMS 08/15 17:14 Order name: RAD; Complete Time: 17:14 EDMS 08/15 17:56 Order name: ABG Arterial Blood Gas; Complete Time: 18:06 EDMS 08/15 17:59 Order name: Urine Dipstick--Ancillary (enter results) bd 08/15 18:20 Order name: Urine Dipstick-Ancillary EDMS 08/15 16:15 Order name: EKG; Complete Time: 16:15 rn 08/15 16:15 Order name: Cardiac monitoring; Complete Time: 16:26 rn 08/15 16:15 Order name: EKG - Nurse/Tech; Complete Time: 16:26 rn 08/15 16:15 Order name: IV Saline Lock; Complete Time: 16:26 rn 08/15 16:15 Order name: Labs collected and sent; Complete Time: 16:26 rn 08/15 16:15 Order name: O2 Per Protocol; Complete Time: 16:27 rn 08/15 16:15 Order name: O2 Sat Monitoring; Complete Time: 16:27 rn 08/15 17:44 Order name: Feliciano; Complete Time: 17:58 sg Administered Medications: 16:20 Drug: SOLU-Medrol 125 mg Route: IVP; Site: right antecubital; tw2 16:43 Follow up: Response: No adverse reaction tw2 16:20 Drug: NS 0.9% 500 ml Route: IV; Rate: bolus; Site: right antecubital; tw2 17:03 Follow up: Response: No adverse reaction; IV Status: Completed infusion; IV Intake: jl7 500ml 16:25 Drug: Magnesium Sulfate 1 grams {Note: per Dr. Dempsey.} Route: IVPB; Infused Over: 20 tw2 mins; Site: right antecubital; 17:02 Follow up: Response: No adverse reaction; IV Status: Completed infusion jl7 16:28 Drug: Xopenex (3) 1.25 mg {Note: via bipap.} Route: Inhalation; tw2 17:03 Follow up: Response: No adverse reaction jl7 17:00 Drug: Rocephin - (cefTRIAXone) 1 grams {Note: IVP available only from pharmacy.} Route: tw2 IVPB; Infused Over: 5 mins; Site: right antecubital; 17:05 Follow up: Response: No adverse reaction; IV Status: Completed infusion tw2 17:40 Drug: Zithromax 500 mg Route: IVPB; Infused Over: 1 hrs; Site: right antecubital; sg 18:42 Follow up: Response: No adverse reaction; IV Status: Completed infusion jl7 17:43 Drug: NS 0.9% 1000 ml Route: IV; Rate: 1000 ml; Site: right antecubital; sg 18:15 Follow up: IV Intake: 1000ml jl7 18:41 Follow up: Response: No adverse reaction; IV Status: Completed infusion jl7 18:14 Drug: Motrin 800 mg Route: PO; jl7 18:41 Follow up: Response: No adverse reaction; Temperature is decreased jl7 18:15 Drug: Tamiflu 75 mg Route: PO; jl7 18:41 Follow up: Response: No adverse reaction jl7 Disposition: 17:38 Critical Care:. rn Disposition: 08/15/19 17:40 Hospitalization ordered by Galo Stringer for Inpatient Admission. Preliminary diagnosis are Pneumonia, Influenza due to other identified influenza virus, Hypoxemia, Sepsis, unspecified organism. - Bed requested for Intensive Care Unit. - Status is Inpatient Admission. lp1 - Condition is Fair. - Problem is new. - Symptoms have improved. Critical care time excluding procedures: 17:38 Critical care time: Bedside Care: 25 minutes, Consultation: 5 minutes, Family rn Intervention: 5 minutes. Total time: 35 minutes Signatures: Dispatcher [employer] EDMS Yared Burgess RN RN Kyle Costa MD MD rn Pena, Laura, RN RN lp1 Alan Pereira, UX DESIGNER-C UX DESIGNER-Cla1 Lynn Duckworth RN RN tl1 Anny Gonzalez RN RN tw2 Stephan Shannon RN RN jl7 Vicky Tellez RN RN ca1 Corrections: (The following items were deleted from the chart) 19:26 17:40 Hospitalization Ordered by Galo Stringer MD for Inpatient Admission. Preliminary tl1 diagnosis is Pneumonia; Influenza due to other identified influenza virus; Hypoxemia; Sepsis, unspecified organism. Bed requested for Intensive Care Unit. Status is Inpatient Admission. Condition is Fair. Problem is new. Symptoms have improved. rn 20:27 19:26 08/15/2019 17:40 Hospitalization Ordered by Galo Stringer MD for Inpatient lp1 Admission. Preliminary diagnosis is Pneumonia; Influenza due to other identified influenza virus; Hypoxemia; Sepsis, unspecified organism. Bed requested for Intensive Care Unit. Status is Inpatient Admission. Condition is Fair. Problem is new. Symptoms have improved. tl1
--- NOTE | 2019-08-15 17:41 | ER ---
Nurse's Notes [facility] Name: Vicky Black Age: 43 yrs Sex: Female : 1975 Arrival Date: 08/15/2019 Time: 16:10 Bed 3 Private MD: Galo Stringer V Diagnosis: Pneumonia;Influenza due to other identified influenza virus;Hypoxemia;Sepsis, unspecified organism Presentation: 08/15 16:15 Presenting complaint: states: Difficulty breathing started around 10am today. ca1 Feeling sick since yesterday. Transition of care: patient was not received from another setting of care. Onset of symptoms was August 15, 2019. Risk Assessment: Do you want to hurt yourself or someone else? Patient reports no desire to harm self or others. Initial Sepsis Screen: Does the patient meet any 2 criteria? RR > 20 per min. HR > 90 bpm. Yes Does the patient have a suspected source of infection? Yes: Productive cough/pneumonia Other: family reports pt having a cough. Care prior to arrival: None. 16:15 Method Of Arrival: Wheelchair ca1 16:15 Acuity: CHARITO 1 jl7 Triage Assessment: 16:45 General: Behavior is listless. Respiratory: Reports significant other reports she has tw2 been feeling short of breath since 10 am Onset: The symptoms/episode began/occurred this morning. 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 - Coronavirus screen:: The patient has NOT traveled to [place], [place], or [place] in the past 14 days. - Family history:: not pertinent. - Social history:: Smoking status: Patient reports the use of cigarette tobacco products, smokes one-half pack cigarettes per day. - Hospitalizations: : No recent hospitalization is reported. - Ebola Screening: : Patient denies travel to an Ebola-affected area in the 21 days before illness onset. Screenin:32 Abuse screen: Denies threats or abuse. Nutritional screening: No deficits noted. tw2 Tuberculosis screening: No symptoms or risk factors identified. Fall Risk Secondary diagnosis (15 points) impaired mobility. 18:10 The patient has not been NPO before screening. The patient is currently on the jl7 following diet: regular The patient is alert, able to follow commands. The patient does not exhibit slurred or garbled speech The patient is not exhibiting difficulty speaking. The patient does not exhibit difficulty understanding words. The patient is able to swallow own secretions with no drooling or need for suction. Patient tolerated one teaspoon of water. No drooling, immediate coughing, gurgling, or clearing of the throat was noted. The patient tolerated 90mL of water. No drooling, immediate coughing, gurgling, or clearing of the throat was noted. The patient passed the bedside swallow screening. Oral medications may be given as ordered. Contact Physician for further diet orders. Provider notified of bedside swallow screening results: Kyle Dempsey MD. Assessment: 16:14 Reassessment: Dr. Dempsey and provider JORGE Phillips at bedside as well as MUNA Rothman, non tw2 rebreather applied at 15L at this time, verbal orders for medications given. 16:15 General: Appears distressed, ill. Pain: Denies pain. Neuro: Level of Consciousness is jl7 awake, alert, obeys commands. Cardiovascular: Heart tones present Rhythm is sinus tachycardia. Respiratory: Airway is patent Respiratory effort is even, labored, Respiratory pattern is symmetrical, tachypnea Breath sounds with rhonchi the patient has severe shortness of breath. Derm: Skin is dry, Skin is normal, Skin temperature is cool. 16:22 Reassessment: a code sepsis has been called, notified. sg 16:34 Reassessment: per significant other at bedside "she normally grunts like that everyday".tw2 16:40 Cardiovascular: Rhythm is sinus tachycardia. tw2 17:00 Reassessment: RT paged for the ABG. sg 17:20 Reassessment: RT paged for ABG. Reassessment: IVA Parr at bedside for ABG at this time. sg 18:20 Reassessment: Patient and/or family updated on plan of care and expected duration. Pain jl7 level reassessed. Patient is alert, oriented x 3, equal unlabored respirations, skin warm/dry/pink. Patient states feeling better. Patient states symptoms have improved. 19:24 Reassessment: Significant other at bedside; Aware of pending admission. General: lp1 Appears in no apparent distress. Behavior is calm. Pain: Denies pain. Neuro: Level of Consciousness is awake, obeys commands, Oriented to person, place. Cardiovascular: Capillary refill < 3 seconds in bilateral fingers toes Patient's skin is warm and dry. Respiratory: Airway is patent Trachea midline Respiratory effort is labored, Respiratory pattern is symmetrical, BiPAP in place; grunting noise, per significant other, normal for patient Breath sounds are coarse bilaterally. GI: Abdomen is obese. : Feliciano in place to gravity drainage. EENT: No signs and/or symptoms were reported regarding the EENT system. Derm: Skin is intact, Skin is dry, Skin is normal, Skin temperature is warm. Musculoskeletal: No deficits noted. Vital Signs: 16:15 BP 131 / 67; Pulse 128; Resp 48 S; Temp 98(O); Pulse Ox 64% on R/A; ca1 16:22 Temp 101.3(TE); sg 16:25 Weight 111.13 kg; sg 16:28 Weight 111.13 kg (R); tw2 16:40 BP 96 / 23; Pulse 121; Resp 39; Pulse Ox 100% on 50% BiPAP; tw2 16:44 BP 101 / 33; Pulse 121; Resp 40; Pulse Ox 98% on BiPAP; tw2 16:49 BP 108 / 76; Pulse 120; Resp 37; Pulse Ox 97% on BiPAP; tw2 17:07 BP 93 / 70; Pulse 116; Resp 38; Temp 98.4(TE); Pulse Ox 97% on BiPAP; tw2 17:19 BP 108 / 55; Pulse 114; Resp 34; Pulse Ox 99% on BiPAP; tw2 17:57 BP 106 / 77; Pulse 112; Resp 33; Temp 102.3(C); Pulse Ox 95% on BiPAP; tw2 18:25 BP 104 / 57; Pulse 110; Resp 36; Temp 101.9(C); Pulse Ox 95% on BiPAP; tw2 18:40 BP 105 / 56; Pulse 107; Resp 29 A; Pulse Ox 95% on BiPAP; Pain 0/10; jl7 19:15 BP 101 / 56; Pulse 101; Resp 34; Temp 100.8(C); Pulse Ox 95% on 50% BiPAP; lp1 20:06 BP 103 / 57; Pulse 99; Resp 29; Temp 99.6(C); Pulse Ox 96% on 50% BiPAP; lp1 16:40 15/8 rate 30 tw2 ED Course: 16:10 Patient arrived in ED. mr 16:10 Galo Stringer MD is Private Physician. mr 16:13 Kyle Dempsey MD is Attending Physician. rn 16:14 Bed in low position. Call light in reach. Side rails up X2. Adult w/ patient. Cardiac tw2 monitor on. Pulse ox on. NIBP on. 16:15 Arm band placed on right wrist. ca1 16:15 Inserted saline lock: 20 gauge in right antecubital area, using aseptic technique. tw2 ,using aseptic technique. per MUNA Rothman Blood collected. 16:15 Initial lab(s) drawn, by ky, sent to lab. First set of blood cultures drawn by ky. jl7 16:22 Triage completed. ca1 16:25 Inserted saline lock: 20 gauge in left antecubital area, using aseptic technique. tw2 16:25 Second set of blood cultures drawn by me. jl7 16:47 Stephan Shannon, RN is Primary Nurse. jl7 17:00 Awaiting: antibiotic from pharmacy, order was faxed at 1700. tw2 17:36 Awaiting: antibiotic from pharmacy, Charge nurse MUNA Vail called pharmacy at this tw2 time checking on status of antibiotics. 17:39 Galo Stringer MD is Hospitalizing Provider. rn 18:00 Speci-cath kit inserted, using sterile technique, 16 Fr., specimen obtained. returned jl7 carlos urine. Patient tolerated well. 19:26 No provider procedures requiring assistance completed. Patient admitted, IV remains in lp1 place. Administered Medications: 16:20 Drug: SOLU-Medrol 125 mg Route: IVP; Site: right antecubital; tw2 16:43 Follow up: Response: No adverse reaction tw2 16:20 Drug: NS 0.9% 500 ml Route: IV; Rate: bolus; Site: right antecubital; tw2 17:03 Follow up: Response: No adverse reaction; IV Status: Completed infusion; IV Intake: jl7 500ml 16:25 Drug: Magnesium Sulfate 1 grams {Note: per Dr. Dempsey.} Route: IVPB; Infused Over: 20 tw2 mins; Site: right antecubital; 17:02 Follow up: Response: No adverse reaction; IV Status: Completed infusion jl7 16:28 Drug: Xopenex (3) 1.25 mg {Note: via bipap.} Route: Inhalation; tw2 17:03 Follow up: Response: No adverse reaction jl7 17:00 Drug: Rocephin - (cefTRIAXone) 1 grams {Note: IVP available only from pharmacy.} Route: tw2 IVPB; Infused Over: 5 mins; Site: right antecubital; 17:05 Follow up: Response: No adverse reaction; IV Status: Completed infusion tw2 17:40 Drug: Zithromax 500 mg Route: IVPB; Infused Over: 1 hrs; Site: right antecubital; sg 18:42 Follow up: Response: No adverse reaction; IV Status: Completed infusion jl7 17:43 Drug: NS 0.9% 1000 ml Route: IV; Rate: 1000 ml; Site: right antecubital; sg 18:15 Follow up: IV Intake: 1000ml jl7 18:41 Follow up: Response: No adverse reaction; IV Status: Completed infusion jl7 18:14 Drug: Motrin 800 mg Route: PO; jl7 18:41 Follow up: Response: No adverse reaction; Temperature is decreased jl7 18:15 Drug: Tamiflu 75 mg Route: PO; jl7 18:41 Follow up: Response: No adverse reaction jl7 Intake: 17:03 IV: 500ml; Total: 500ml. jl7 18:15 IV: 1000ml; Total: 1500ml. jl7 Outcome: 17:40 Decision to Hospitalize by Provider. rn 19:26 critical lp1 19:26 Instructed on the need for admit. 20:14 Admitted to ICU accompanied by nurse, via stretcher, room 8, with oxygen, on monitor, lp1 with chart, Report called to MUNA Jack 20:27 Patient left the ED. lp1 Signatures: Yared Burgess RN MUNA AnsariLana Roman, MD MD rn Pena, Laura RN MUNA lp1 Anny Gonzalez RN RN tw2 Stephan Shannon RN RN jl7 Vicky Tellez RN RN ca1 Corrections: (The following items were deleted from the chart) 16:42 16:15 Initial Sepsis Screen: Does the patient meet any 2 criteria? RR > 20 per min. HR sg > 90 bpm. Yes Does the patient have a suspected source of infection? ca1 16:45 16:40 BP 96 / 23; Pulse 121bpm; Resp 39bpm; Pulse Ox 100% BiPAP; tw2 tw2 16:52 16:15 Acuity: CHARITO 2 ca1 sg 16:53 16:49 BP 108 / 76; Pulse 120bpm; Resp 36bpm; Pulse Ox 97% BiPAP; tw2 tw2 17:09 17:07 BP 93 / 70; Pulse 116bpm; Resp 38bpm; Pulse Ox 97% BiPAP; tw2 tw2 18:39 18:25 BP 104 / 57; Pulse 110bpm; Resp 36bpm; Pulse Ox 95% BiPAP; Temp 102.2F Catheter; tw2 tw2 19:28 19:24 Respiratory: Airway is patent Trachea midline Respiratory effort is labored, lp1 Respiratory pattern is symmetrical, BiPAP in place Breath sounds are coarse bilaterally. lp1
[2019-08-15] MEDS ORDERED: NA CHLORIDE 0.9% 1,000 ML ONE (17:44)
[2019-08-15 17:53] LABS: Blood O2 Saturation 94.7 % (92-98.5)
[2019-08-15 17:54] LABS: Arterial Blood Carboxyhemoglob 1.9 % (0-1.5); Blood Gas Oxyhemoglobin 92.1 % (94-97)
[2019-08-15] MEDS ORDERED: AZITHROMYCIN IV 500 MG in NA CHLORIDE 0.9% 250 ML IVPB ONE (18:00)
[2019-08-15] MEDS ORDERED: ACETAMINOPHEN 650MG/RECT SUPP PR ONE (18:02)
[2019-08-15] MEDS ORDERED: OSELTAMIVIR 75 MG CAP ONE (18:09)
[2019-08-15] MEDS ORDERED: IBUPROFEN 400 MG TAB ONE (18:09)
[2019-08-15 18:19] LABS: Urine Blood NEGATIVE (NEG); Urine Glucose 2+ (NEG); Urine Protein 1+ (NEG)
[2019-08-15] MEDS: METHYLPREDNISOLONE 40 MG INJ IV SCH (20:27)
[2019-08-15] MEDS ORDERED: ONDANSETRON 4 MG/2 ML VIAL IV PRN (20:27)
[2019-08-15] MEDS ORDERED: ALBUTEROL 2.5 MG/3 ML NEB SOL NEB PRN (20:27)
[2019-08-15] MEDS: NS KCL 20MEQ 20 MEQ/1,000 ML BAG IV SCH (20:27)
[2019-08-15] MEDS ORDERED: IPRATROPIUM BROM 0.5MG/2.5ML NEB PRN (20:27)
[2019-08-15] MEDS ORDERED: NS KCL 20MEQ 1,000 ML IV ONE (20:36)
[2019-08-15] MEDS ORDERED: CEFTRIAXONE/SWI 1gm 1 GM/10 ML SYR IV SCH (21:00)
[2019-08-15] MEDS ORDERED: D50W 25 GM/50 ML SYRINGE/VIAL IV PRN (21:17)
[2019-08-15] MEDS ORDERED: GLUCAGON 1 MG/VIAL IM PRN (21:17)
[2019-08-15] MEDS: OSELTAMIVIR 75 MG CAP PO SCH (21:22)
[2019-08-15] MEDS: INSULIN -REGULAR HUMAN 50 UNIT/0.5 ML ML SQ SCH (22:06)
[2019-08-15] MEDS ORDERED: KCL 20 MEQ/100 mL IVPB 20 MEQ/100 ML BAG IV SCH (23:00)
[2019-08-15] MEDS: Enoxaparin 120 MG/0.8 ML SYR SQ SCH (23:28)
[2019-08-16] MEDS: INSULIN -REGULAR HUMAN 50 UNIT/0.5 ML ML SQ SCH ×4 (00:01→22:05)
[2019-08-16] MEDS: METHYLPREDNISOLONE 40 MG INJ IV SCH ×2 (00:02→05:42)
[2019-08-16 05:15] LABS: Absolute Lymphocytes (CBC) 0.8 K/uL (0.7-4.9); Basophils % 0.2 % (0-1.3); Hematocrit 35.8 % (36.0-45.0); Lymphocytes % 10.9 % (15.3-44.8); MPV 9.1 fL (7.6-11.3); RBC Red Blood Cell Count 3.78 M/uL (3.86-4.86)
[2019-08-16 05:36] LABS: BUN Blood Urea Nitrogen 14 mg/dL (7-18); Bicarbonate 29 mmol/L (21-32); Glucose Level 334 mg/dL (74-106); Magnesium 2.3 mg/dL (1.8-2.4); NT PRO-BNP 824 pg/mL (<125); Potassium 3.6 mmol/L (3.5-5.1); Sodium Level 139 mmol/L (136-145)
[2019-08-16] MEDS: NS KCL 20MEQ 20 MEQ/1,000 ML BAG IV SCH (06:21)
[2019-08-16] MEDS ORDERED: KCL 20 MEQ/100 mL IVPB 20 MEQ/100 ML BAG IV SCH (07:00)
[2019-08-16] MEDS: OSELTAMIVIR 75 MG CAP PO SCH ×2 (08:22→22:05)
[2019-08-16] MEDS: DULOXETINE 30 MG CAP PO SCH (08:22)
[2019-08-16] MEDS: GLIMEPIRIDE 2 MG TABLET PO SCH (08:22)
[2019-08-16] MEDS: VITAMIN D 1000 UNIT TAB PO SCH (08:22)
[2019-08-16] MEDS: METFORMIN HCL 500 MG TAB PO SCH ×2 (08:22→18:18)
[2019-08-16 08:25] LABS: HDL Cholesterol 29 mg/dL (40-60); LDL, Direct 66 mg/dL (100-129)
--- NOTE | 2019-08-16 08:58 | P.CNS ---
Date of Consult: 08/16/19 Reason for Consult: Respiratory failure Chief Complaint: Respiratory failure History of Present Illness: Patient is 43 years of age former heavy smoker admitted with acute onset of dyspnea not feeling well very weak and appeared in the hospital she has an inhaler at home no prior diagnosis of COPD she is not on any oxygen with smoking recently patient has cerebellar ataxia difficulty ambulate doing better since admission Allergies No Known Allergies Allergy (Verified 05/30/18 14:51) Home Medications: Cholecalciferol (Vitamin D3) [Vitamin D3] 1,000 unit PO DAILY 08/15/19 Duloxetine HCl 60 mg PO DAILY 08/15/19 - Past Medical/Surgical History Diabetic: No -: Cerebellum Ataxia -: Possible COPD -: Section -: Tubal Ligation -: Cholecystectomy - Family History Mother Medical History: Hypertension - Social History Smoking Status: Current every day smoker Alcohol use: No CD- Drugs: No Caffeine use: Yes Place of Residence: Home Review of Systems 10-point ROS is otherwise unremarkable General: Weakness Respiratory: Cough, Shortness of Breath Physical Examination Temp Pulse Resp BP Pulse Ox 98.7 F 85 18 115/69 99 08/16/19 00:00 08/16/19 06:00 08/16/19 06:00 08/16/19 06:00 08/16/19 06:00 General: Alert, In no apparent distress, Oriented x3 Respiratory: Expiratory wheezes Cardiovascular: No edema, Regular rate/rhythm, Normal S1 S2 Gastrointestinal: Normal bowel sounds, Soft and benign Laboratory Data (last 24 hrs) 08/15/19 16:17: WBC 8.6, Hgb 12.7, Hct 38.2, Plt Count 163 08/15/19 16:17: Sodium 134 L, Potassium 3.1 L, BUN 17, Creatinine 1.00, Glucose 401 H* - Problems (1) COPD exacerbation Current Visit: Yes Status: Acute Plan: Patient is 43 years of age admitted with acute respiratory distress presume COPD exacerbation patient is hypoxic hypercapnic mild elevation of troponin pro calcitonin level elevated normal white count chest x-ray nonspecific changes patient is off BiPAP doing much better change to p.o. Zithromax continue with Rocephin influenza A-positive labs diagnostic data reviewed change to p.o. prednisone patient will need outpatient workup including PFTs console not to smoke stable to be transferred to the floor Dc BiPAP
[2019-08-16] MEDS ORDERED: AZITHROMYCIN IV 250 MG in NA CHLORIDE 0.9% 250 ML IVPB SCH (09:00)
[2019-08-16] MEDS: Enoxaparin 120 MG/0.8 ML SYR SQ SCH ×2 (10:13→22:05)
[2019-08-16] MEDS: AZITHROMYCIN 250 MG TAB PO SCH (10:14)
[2019-08-16] MEDS: DULERA 200/5 (MOMETASONE/FORMOTEROL) INHALER IH SCH ×2 (10:14→22:06)
[2019-08-16] MEDS: CEFTRIAXONE/SWI 1gm 1 GM/10 ML SYR IV SCH ×2 (10:15→22:07)
[2019-08-16] MEDS: predniSONE 20 MG TAB PO SCH ×2 (10:16→22:04)
--- NOTE | 2019-08-16 10:25 | EKG ---
Test Date: 2019-08-15 Test Time: 16:14:30 Stack Yield Engineer: SWG MEASUREMENT RESULTS: Intervals: Rate: 118 MD: 140 QRSD: 84 QT: 342 QTc: 479 [place]: P: 51 MD: 140 QRS: 58 T: 28 INTERPRETIVE STATEMENTS: Sinus tachycardia Low voltage QRS Cannot rule out Anterior infarct, age undetermined Abnormal ECG Compared to ECG 05/30/2018 06:52:00 questionable myocardial infarct finding now present Sinus rhythm no longer present Electronically Signed On 08-16-19 10:24:58 VEHICLE MODIFICATION TECHNICIAN by Krunal Cintron
--- NOTE | 2019-08-16 13:02 | P.HP ---
Certification for Inpatient Patient admitted to: Inpatient With expected LOS: >2 Midnights Practitioner: I am a practitioner with admitting privileges, knowledge of patient current condition, hospital course, and medical plan of care. 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 SPONDYLITIS AND COPD COMES WITH FEVER, DYSPNEA AND WAS FOUND TO HAVE FLU WITH COPD EXACERBATION. SHE IS NOW IN ICU. Allergies No Known Allergies Allergy (Verified 05/30/18 14:51) Home Medications: Cholecalciferol (Vitamin D3) [Vitamin D3] 1,000 unit PO DAILY 08/15/19 Duloxetine HCl 60 mg PO DAILY 08/15/19 - Past Medical/Surgical History Has patient received pneumonia vaccine in the past: No Diabetic: No -: Cerebellum Ataxia -: Possible COPD -: Section -: Tubal Ligation -: Cholecystectomy - Family History Mother -: Hypertension - Social History Smoking Status: Current every day smoker Alcohol use: No CD- Drugs: No Caffeine use: Yes Place of Residence: Home Review of Systems 10-point ROS is otherwise unremarkable General: Weakness, Malaise Respiratory: Shortness of Breath Physical Examination - Vital Signs Temperature: 98.7 F Blood Pressure: 115/69 Pulse: 85 Respirations: 18 Pulse Ox (%): 99 - Physical Exam General: Alert, Moderate distress, Obese HEENT: Atraumatic, PERRLA, Mucous membr. moist/pink, EOMI, Sclerae nonicteric Neck: Supple, 2+ carotid pulse no bruit, No LAD, Without JVD or thyroid abnormality Respiratory: Diminished Cardiovascular: Regular rate/rhythm, Normal S1 S2 Gastrointestinal: Normal bowel sounds, No tenderness Musculoskeletal: No tenderness Integumentary: No rashes Neurological: Normal speech, Abnormal gait (NOT ABLE TO AMBULATE FROM C. ATAXIA. SHE HAS TWO NEUROLOGISTS. ) Lymphatics: No axilla or inguinal lymphadenopathy - Studies Laboratory Data (last 24 hrs) 08/15/19 16:17: WBC 8.6, Hgb 12.7, Hct 38.2, Plt Count 163 08/15/19 16:17: Sodium 134 L, Potassium 3.1 L, BUN 17, Creatinine 1.00, Glucose 401 H* Microbiology Data (last 24 hrs): 08/15/19 16:17 Nasopharnyx Influenza Type A Antigen Screen - Final 08/15/19 16:17 Nasopharnyx Influenza Type B Antigen Screen - Final Assessment and Plan - Problems (Diagnosis) (1) Influenza Current Visit: Yes Status: Acute Plan: SHE IS FLU A POS. RESUME TAMIFLU BID RESP SUPPORT. (2) Newly diagnosed diabetes Current Visit: Yes Status: Acute Plan: START GLIMEPRIDE, AND METFORMIN. FS AC HS. A1C IS 9. 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 (4) Elevated troponin Current Visit: Yes Status: Acute Plan: MOSTLY FROM PULMONARY RELATED CARDIAC STRESS. CARBURETOR EXPERT TO SEE PTDarron ALMONTE WHEN STABLE. (5) COPD exacerbation Current Visit: Yes Status: Acute Plan: NEBS. SEROIDS. ABX. DR. LOPEZ. - Advance Directives Does patient have a Living Will: No Does patient have a Durable POA for Healthcare: No
--- NOTE | 2019-08-16 13:08 | CON ---
Mrs. Black is 43. She came to the hospital with generalized malaise and weakness of the muscles. Dalila alva has been found to have influenza A. There is not evidence of coexisting pneumonia. Chest x-ray lo oks normal. She was not having chest pain. She does not have EKG abnormalities that suggest an acut e [place]. Troponins were measured and they were elevated. The highest one is about 1.17. She has had 2 other slightly lower. It is not the typical rise and fall you see with an acute coronary syndrome. The patient has never had diabetes, hypertension, dyslipidemia, myocardial infarction, stroke, any v ascular surgeries. Home medications have been vitamin D3 and duloxetine. She is multigravid. She h ad a labial abscess that was lysed several years ago. No other significant past history. Physical Examination: General: She is alert, oriented, pleasant, 5 feet 7 inches, 252 pounds, obese. Lungs: Clear. Heart: Within normal limits. Abdomen: Soft. Extremities: Diminished distal pulses but palpable. She is a regular tobacco user. Since she has influenza and is on isolation, not having chest pain, neeta e certainly do not need to vasquez to do a heart cath. I would like to do an echocardiogram today to se alva what we learn, and next week perhaps as an outpatient do a cardiac cath on her to see whether she h as CAD or not. Viral syndromes often will cause a small rise in troponin levels without significant coronary heart disease, but probably the only way to know for sure what she has is to do a heart cath . She needs to quit using tobacco and she needs to start seeing a family doctor and get diabetes, previously undiagnosed, under control . DALILA/NOEMIL Voice ID: [id number] Report ID: [id number]
[2019-08-16] MEDS: IPRATROPIUM BROM 0.5MG/2.5ML NEB SCH ×2 (13:15→20:10)
[2019-08-16] MEDS ORDERED: NICOTINE 14 MG/PAT TD SCH (15:42)
[2019-08-16] MEDS ORDERED: INSULIN -REGULAR HUMAN 50 UNIT/0.5 ML ML IV SCH (16:30)
[2019-08-16] MEDS: JUVEN PACKET PO SCH (21:00)
[2019-08-17] MEDS: IPRATROPIUM BROM 0.5MG/2.5ML NEB SCH ×4 (01:50→19:30)
[2019-08-17 06:42] VITALS: BMI 38.6
[2019-08-17 07:06] LABS: Absolute Lymphocytes (CBC) 1.1 K/uL (0.7-4.9); Basophils % 0.4 % (0-1.3); Hematocrit 34.5 % (36.0-45.0); Lymphocytes % 8.4 % (15.3-44.8); MPV 9.8 fL (7.6-11.3); RBC Red Blood Cell Count 3.66 M/uL (3.86-4.86)
[2019-08-17 07:10] LABS: BUN Blood Urea Nitrogen 9 mg/dL (7-18); Bicarbonate 32 mmol/L (21-32); Glucose Level 208 mg/dL (74-106); Magnesium 2.3 mg/dL (1.8-2.4); Phosphorus 1.9 mg/dL (2.5-4.9); Sodium Level 140 mmol/L (136-145)
[2019-08-17] MEDS: GLIMEPIRIDE 2 MG TABLET PO SCH (08:16)
[2019-08-17] MEDS: METFORMIN HCL 500 MG TAB PO SCH ×2 (08:16→16:27)
[2019-08-17] MEDS: DULOXETINE 30 MG CAP PO SCH (08:16)
[2019-08-17] MEDS: Enoxaparin 120 MG/0.8 ML SYR SQ SCH (08:17)
[2019-08-17] MEDS: JUVEN PACKET PO SCH ×2 (08:17→20:28)
[2019-08-17] MEDS: DULERA 200/5 (MOMETASONE/FORMOTEROL) INHALER IH SCH (08:17)
[2019-08-17] MEDS: CEFTRIAXONE/SWI 1gm 1 GM/10 ML SYR IV SCH (08:18)
[2019-08-17] MEDS: OSELTAMIVIR 75 MG CAP PO SCH ×2 (08:19→20:28)
[2019-08-17] MEDS: AZITHROMYCIN 250 MG TAB PO SCH (08:19)
[2019-08-17] MEDS: VITAMIN D 1000 UNIT TAB PO SCH (08:19)
[2019-08-17] MEDS: INSULIN -REGULAR HUMAN 50 UNIT/0.5 ML ML SQ SCH ×4 (08:21→20:27)
[2019-08-17] MEDS: predniSONE 20 MG TAB PO SCH ×2 (08:23→20:28)
[2019-08-17 08:49] LABS: Blood Morphology Comment NOT SEEN (NOT SEEN); Platelet Estimate ADEQ
[2019-08-17] MEDS: TRAMADOL HCL 50 MG TAB PO PRN ×3 (09:16→22:10)
[2019-08-17] MEDS: LIDOCAINE 4% PATCH TOP SCH (09:16)
[2019-08-17] MEDS ORDERED: POTASSIUM PHOS IN 0.9 % NACL 15 MMOL/250 ML BAG IV ONE (10:00)
--- NOTE | 2019-08-17 10:46 | PN ---
Ms. Black seems to be doing better. Again, her enzymes are up. She has influenza. She retains a lo t of CO2. Her pCO2 was 55.6 when she did a blood gas a few days ago. This probably accounts for the elevated troponin without EKG changes or chest pain. I am reluctant to call this an [place]. Diagnostic test of choice to see if she has coronary heart disease is a cardiac cath. After she is completely over the flu and feels well, I will recommend a cardiac cath. She is stable enough that she could be discharged and come back for the cardiac cath as an outpatient. DALILA/CLAUDIA Voice ID: [id number] Report ID: [id number]
[2019-08-17] MEDS: NICOTINE 14 MG/PAT TD SCH (10:58)
[2019-08-17] MEDS ORDERED: NA CHLORIDE 0.9% 250 ML ONE (11:00)
[2019-08-17] MEDS: ARFORMOTEROL TARTRATE 15 MCG/2 ML VIAL.NEB NEB SCH ×2 (11:02→19:30)
--- NOTE | 2019-08-17 11:06 | P.PN ---
Subjective Date of Service: 08/17/19 Chief Complaint: COPD exacerbation Patient states that she is not any better infectious worse still has cough congestion shortness of breath Review of Systems General: Weakness Respiratory: Cough, Shortness of Breath Physical Examination - Vital Signs Temperature: 98.0 F Blood Pressure: 116/67 Pulse: 86 Respirations: 19 Pulse Ox (%): 96 - Physical Exam General: Alert, In no apparent distress Respiratory: Expiratory wheezes Gastrointestinal: Normal bowel sounds, Soft and benign Assessment & Plan - Problems (Diagnosis) (1) COPD exacerbation Current Visit: Yes Status: Acute Plan: Patient admitted with COPD exacerbation states that she is not any better continue with steroids antibiotics no evidence of obvious sepsis can change to p.o. antibiotic blood cultures negative minimal interstitial changes change to p.o. levofloxacin I have added Brovana nebulized daily room air pulse ox
[2019-08-17] MEDS: levoFLOXacin 500 MG TAB PO SCH (12:01)
--- NOTE | 2019-08-17 15:06 | ECHO ---
HEIGHT: 5 ft 8 in WEIGHT: 254 lb 4.8 oz DATE OF STUDY: 08/17/[address]: Irving Godinez MD 2-DIMENSIONAL: YES M.MODE: YES DOPPLER: YES COLOR FLOW: YES TDS: YES PORTABLE: NO DEFINITY: NO BUBBLE STUDY: NO DIAGNOSIS: CHRONIC OBSTRUCTIVE PULMONARY DISEASE CARDIAC HISTORY: CATHERIZATION: NO SURGERY: NO PROSTHETIC VALVE: NO PACEMAKER: NO MEASUREMENTS (cm) DIASTOLIC (NORMALS) SYSTOLIC (NORMALS) IVSd 1.2 (0.6-1.2) LA Diam 3.6 (1.9-4.0) LVEF 60% LVIDd 4.9 (3.5-5.7) LVIDs 3.3 (2.0-3.5) %FS 32% LVPWd 1.3 (0.6-1.2) Ao Diam 2.9 (2.0-3.7) 2 DIMENSIONAL ASSESSMENT: RIGHT ATRIUM: NORMAL LEFT ATRIUM: NORMAL RIGHT VENTRICLE: NORMAL LEFT VENTRICLE: NORMAL TRICUSPID VALVE: NORMAL MITRAL VALVE: NORMAL PULMONIC VALVE: NORMAL AORTIC VALVE: NORMAL PERICARDIAL EFFUSION: NONE AORTIC ROOT: NORMAL LEFT VENTRICULAR WALL MOTION: NORMAL. DOPPLER/COLOR FLOW: TRACE OF MITRAL REGURGITATION. COMMENTS: NORMAL 2D ECHO. TRACE OF MITRAL REGURGITATION. TECHNOLOGIST: BJ RAMIREZ
[2019-08-17] MEDS ORDERED: Enoxaparin 120 MG/0.8 ML SYR SQ SCH (21:00)
[2019-08-18] MEDS: IPRATROPIUM BROM 0.5MG/2.5ML NEB SCH ×4 (01:15→19:25)
--- NOTE | 2019-08-18 01:41 | PN ---
Subjective: Ms. Black is doing lot better. She is still short of breath, but not as bad as throat c ongestion. Physical Examination: Vital Signs: Blood pressure 120/70, pulse is 94, temperature 98.0. HEENT: No JVD. No carotid bruits. Patient has extensive facial hair. Chest: Clear. Decreased breath sounds bilaterally. Heart: Irregular. Laboratory Examination: White count 12,000 on steroids, otherwise stable. Assessment And Plan: 1.Chronic obstructive pulmonary disease exacerbation. Continue medications. She is on prednisone n ow, but oral prednisone and will be tapering off. 2.Flu and strep throat. Continue current medications. 3.Diabetes mellitus, which is new for her. She is on glimepiride and metformin now. Sugars trendin g down to 140 instead of 400. RVD/MODL Voice ID: [id number] Report ID: [id number]
[2019-08-18 06:27] LABS: Absolute Lymphocytes (CBC) 1.2 K/uL (0.7-4.9); Basophils % 0.1 % (0-1.3); Lymphocytes % 13.4 % (15.3-44.8); MPV 9.1 fL (7.6-11.3); RBC Red Blood Cell Count 3.78 M/uL (3.86-4.86)
[2019-08-18 06:43] LABS: BUN Blood Urea Nitrogen 10 mg/dL (7-18); Bicarbonate 35 mmol/L (21-32); Glucose Level 157 mg/dL (74-106); Magnesium 2.3 mg/dL (1.8-2.4); Phosphorus 2.7 mg/dL (2.5-4.9); Potassium 3.6 mmol/L (3.5-5.1); Sodium Level 139 mmol/L (136-145)
[2019-08-18] MEDS: INSULIN -REGULAR HUMAN 50 UNIT/0.5 ML ML SQ SCH ×4 (07:30→21:10)
[2019-08-18] MEDS: ARFORMOTEROL TARTRATE 15 MCG/2 ML VIAL.NEB NEB SCH ×2 (08:02→19:25)
[2019-08-18] MEDS: levoFLOXacin 500 MG TAB PO SCH (08:42)
[2019-08-18] MEDS: predniSONE 20 MG TAB PO SCH (08:42)
[2019-08-18] MEDS: OSELTAMIVIR 75 MG CAP PO SCH ×2 (08:42→21:10)
[2019-08-18] MEDS: DULOXETINE 30 MG CAP PO SCH (08:42)
[2019-08-18] MEDS: GLIMEPIRIDE 2 MG TABLET PO SCH (08:42)
[2019-08-18] MEDS: LIDOCAINE 4% PATCH TOP SCH (08:42)
[2019-08-18] MEDS: METFORMIN HCL 500 MG TAB PO SCH ×2 (08:43→16:46)
[2019-08-18] MEDS: VITAMIN D 1000 UNIT TAB PO SCH (08:43)
[2019-08-18] MEDS: NICOTINE 14 MG/PAT TD SCH (08:43)
[2019-08-18] MEDS: JUVEN PACKET PO SCH ×3 (08:44→21:00)
[2019-08-18] MEDS ORDERED: POTASSIUM CL SA 10 MEQ TAB PO ONE (09:00)
[2019-08-18] MEDS ORDERED: Enoxaparin 120 MG/0.8 ML SYR SQ SCH (09:00)
--- NOTE | 2019-08-18 11:15 | P.PN ---
Subjective Date of Service: 08/18/19 Chief Complaint: COPD exacerbation Subjective: Improving CHEYL HAS IMPROVED TO 70% SHE SAYS. SHE STILL HAS DYSPNEA. SHE WILL POSSIBLY GO HOME IN AM. Review of Systems 10-point ROS is otherwise unremarkable General: Weakness, Malaise Cardiovascular: As per HPI Physical Examination - Vital Signs Temperature: 98.9 F Blood Pressure: 135/75 Pulse: 88 Respirations: 20 Pulse Ox (%): 99 - Physical Exam General: Mild distress, Moderate distress, Obese, Other (HIRSITUISM.) HEENT: Atraumatic, PERRLA, EOMI Neck: Supple, JVD not distended Respiratory: Clear to auscultation bilaterally, Normal air movement Cardiovascular: Regular rate/rhythm, Normal S1 S2 Gastrointestinal: Normal bowel sounds, No tenderness Musculoskeletal: No tenderness Integumentary: No rashes Neurological: Normal speech, Normal tone, Normal affect Lymphatics: No axilla or inguinal lymphadenopathy - Studies Medications List Reviewed: Yes Assessment And Plan - Current Problems (Diagnosis) (1) Influenza Current Visit: Yes Status: Acute Plan: SHE IS FLU A POS. RESUME TAMIFLU BID RESP SUPPORT. IMPROVED WELL. (2) Newly diagnosed diabetes Current Visit: Yes Status: Acute Plan: START GLIMEPRIDE, AND METFORMIN. FS AC HS. A1C IS 9. 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 (4) Elevated troponin Current Visit: Yes Status: Acute Plan: MOSTLY FROM PULMONARY RELATED CARDIAC STRESS. 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 (5) COPD exacerbation Current Visit: Yes Status: Acute Plan: NEBS. SEROIDS. ABX. DR. LOPEZ. (6) Hirsutism Current Visit: Yes Status: Chronic Plan: SHE HAS BEEN THROUGH ENDOCRINE EVAL. WILL FU ON THIS.
--- NOTE | 2019-08-18 14:44 | PN ---
Ms. Black remains compromised from influenza. She seems to be making some progress. Vital signs are good. She is not having chest pain. She would not be ready to do a heart catheterization and I thi nk it is probably better to get the flu as good as we can discharge her and give her a week or 2 befo re we do a heart cath. There is no urgency to it at all. I think we will probably learn her cardiac enzymes were related to a viral syndrome and not to an actual acute coronary syndrome. DALILA/CLAUDIA Voice ID: [id number] Report ID: [id number]
[2019-08-19] MEDS: IPRATROPIUM BROM 0.5MG/2.5ML NEB SCH ×3 (01:40→14:30)
[2019-08-19] MEDS: INSULIN -REGULAR HUMAN 50 UNIT/0.5 ML ML SQ SCH ×3 (07:30→16:34)
[2019-08-19] MEDS: ARFORMOTEROL TARTRATE 15 MCG/2 ML VIAL.NEB NEB SCH (07:50)
[2019-08-19] MEDS: JUVEN PACKET PO SCH (09:00)
[2019-08-19] MEDS ORDERED: predniSONE 20 MG TAB PO SCH (09:00)
[2019-08-19] MEDS ORDERED: ENOXAPARIN 40 MG/0.4 ML SQ SCH (09:00)
[2019-08-19] MEDS: NICOTINE 14 MG/PAT TD SCH (09:05)
[2019-08-19] MEDS: METFORMIN HCL 500 MG TAB PO SCH ×2 (09:06→16:34)
[2019-08-19] MEDS: levoFLOXacin 500 MG TAB PO SCH (09:06)
[2019-08-19] MEDS: DULOXETINE 30 MG CAP PO SCH (09:06)
[2019-08-19] MEDS: GLIMEPIRIDE 2 MG TABLET PO SCH (09:06)
[2019-08-19] MEDS: VITAMIN D 1000 UNIT TAB PO SCH (09:06)
[2019-08-19] MEDS: OSELTAMIVIR 75 MG CAP PO SCH ×2 (09:06→16:34)
[2019-08-19] MEDS: LIDOCAINE 4% PATCH TOP SCH (09:15)
[2019-08-19] MEDS: TRAMADOL HCL 50 MG TAB PO PRN (09:28)
[2019-08-19] MEDS ORDERED: POTASSIUM 25 MEQ EFFERV TAB PO ONE (09:43)
--- NOTE | 2019-08-19 10:01 | P.DS ---
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 SPONDYLITIS AND COPD COMES WITH FEVER, DYSPNEA AND WAS FOUND TO HAVE FLU WITH COPD EXACERBATION. SHE IS NOW IN ICU. Hospital Course: MS. LEWIS CAME WITH DYSPNEA, RESPIRATORY FALIURE, COPD FROM SMOKING, INFLUENZA AND STREP POSITIVE RESPIRATORY INFECTION. IT TOOK HER FEW DAYS TO IMPROVE. SHE IS NOW FEELING GREAT AFTER TAMIFLU, LEVAQUI AND NEBS AND FEW DAYS OF STEROIDS. SHE HAS NEW ONSET DM. SHE HAS DONE WELL ON TWO MEDS. I WILL CONTINUE THEM AND SHE WILL FU IN OFFICE IN A WEEK OR SO Vital Signs/Physical Exam: Temp Pulse Resp BP Pulse Ox 97.7 F 86 18 158/65 H 99 08/19/19 08:00 08/19/19 08:00 08/19/19 09:28 08/19/19 08:00 08/19/19 09:28 Laboratory Data at Discharge: WBC 8.8 K/uL (4.3-10.9) D 08/18/19 06:14 Hgb 12.1 g/dL (12.0-15.0) 08/18/19 06:14 Hct 36.0 % (36.0-45.0) 08/18/19 06:14 Plt Count 143 K/uL (152-406) L 08/18/19 06:14 Sodium 139 mmol/L (136-145) 08/18/19 06:14 Potassium 3.2 mmol/L (3.5-5.1) L 08/19/19 06:23 BUN 10 mg/dL (7-18) 08/18/19 06:14 Creatinine 0.48 mg/dL (0.55-1.3) L 08/18/19 06:14 Glucose 157 mg/dL (74-106) H 08/18/19 06:14 Phosphorus 2.7 mg/dL (2.5-4.9) 08/18/19 06:14 Magnesium 2.3 mg/dL (1.8-2.4) 08/18/19 06:14 Troponin I 1.17 ng/mL (0.0-0.045) H* 08/16/19 01:00 Triglycerides 106 mg/dL (<150) 08/16/19 07:13 Cholesterol 101 mg/dL (<200) 08/16/19 07:13 LDL Cholesterol Direct 66 mg/dL (100-129) L 08/16/19 07:13 HDL Cholesterol 29 mg/dL (40-60) L 08/16/19 07:13 Cholesterol/HDL Ratio 3.48 08/16/19 07:13 Home Medications: Cholecalciferol (Vitamin D3) [Vitamin D3] 1,000 unit PO DAILY 08/15/19 Duloxetine HCl 60 mg PO DAILY 08/15/19 Spironolactone 25 mg PO DAILY #90 tablet 08/19/19 levoFLOXacin [Levaquin*] 500 mg PO DAILY #4 tab 08/19/19 New Medications: levoFLOXacin [Levaquin*] 500 mg PO DAILY #4 tab Spironolactone 25 mg PO DAILY #90 tablet Diet: AHA Activity: Fall precautions
[2019-08-19 16:52] VITALS: O2SAT 93
[2019-08-19 17:51] VITALS: BP 148/81; TEMP 97.5
== END 2019-08-19 17:30 | disposition home or self-care (01) | DRG 193 ==
LOC: ER 16:08 → ERHOLD 17:50 → 3RD-ICU 20:15 → 2ND 08-16 15:20
PROVIDERS: ADMIT Internal Medicine; ATTEND Internal Medicine
PROC: 5A09457 Assistance with Respiratory Ventilation, 24-96 Consecutive Hours, Continuous Positive Airway Pressure (ICD-10-PCS; principal; 2019-08-15)
DX: J09.X2 Influenza due to identified novel influenza A virus with other respiratory manifestations (principal); J96.00 Acute respiratory failure, unspecified whether with hypoxia or hypercapnia; J44.0 Chronic obstructive pulmonary disease with (acute) lower respiratory infection; G11.9 Hereditary ataxia, unspecified; J44.1 Chronic obstructive pulmonary disease with (acute) exacerbation; E11.9 Type 2 diabetes mellitus without complications; L68.0 Hirsutism; R79.89 Other specified abnormal findings of blood chemistry; M45.9 Ankylosing spondylitis of unspecified sites in spine; F17.210 Nicotine dependence, cigarettes, uncomplicated
CPT/HCPCS: 36415; 71045; 80048; 80061; 81003; 82043; 82570; 82805; 82947; 83036; 83605; 83735; 83880; 84100; 84132; 84145; 84484; 85025; 87040; 87804; 93005; 93306; 94640; 94660; 94760; 96365; 96367; 96375; 99291; J0456; J0696; J1650; J2920; J2930; J3475; J7030; J7040; J7512; J7605; J7606

== ENCOUNTER 2020-05-13 15:59 | Inpatient (IN) | payer OTHER ==
--- OUTSIDE RECORDS SUMMARY | 2020-05-13 16:02 | XMS REPORT | Clinical Summary ---
:1975 Author Organization [facility] Address [address] [place] [address] Care Team Providers Name Role Phone MD Myke Primary Care Provider Allergies Active Allergy Reactions Severity Noted Date Comments No Known Drug Allergies 04/28/2016 Medications Medication Sig Dispensed Refills Start Date End Date Status DULoxetine Take 60 mg by 0 Activ e (CYMBALTA) 60 MG mouth daily. capsule metFORMIN Take 1,000 mg 0 02/14/2020 Activ e (GLUCOPHAGE) 1,000 by mouth 2 mg tablet (two) times a day. levothyroxine Take 50 mcg 0 02/26/2020 Act grayson (SYNTHROID) 50 mcg by mouth tablet every morning. ergocalciferol Take 50,000 0 Act grayson (VITAMIN D2) 50,000 Units by unit capsule mouth once a week. dextromethorphan-qu Take 1 60 capsule 11 04/14/2020 Active inidine (Nuedexta) capsule by 20-10 mg capsule mouth every 12 (twelve) hours. traMADol (ULTRAM) Take 50 mg by 0 04/14/20 Discontinued 50 mg mouth 2 (two) 20 (Med L ist tabletIndications: times a day Cleanup) acute pain .Acute Pain. cholecalciferol, Take by mouth 0 04/14/20 Discontinued vitamin D3, daily. 20 (Med Lis t (VITAMIN D3) 5,000 C leanup) unit tablet carbidopa-levodopa 1 p.o. 3 240 tablet 11 04/17/2019 04/14/20 Discontinued (SINEMET) 25-100 mg times daily 20 (Med List per tablet x1 week, then Clean up) 1.5 p.o. 3 times daily x1 week, then 2 p.o. 3 times daily clonAZEPAM Titrate as 60 tablet 5 04/17/2019 04/14/20 Discont inued (KlonoPIN) 1 MG directed to 1 20 (Med List tablet p.o. twice Cleanup) daily. Active Problems Problem Noted Date Ataxia 04/28/2016 REM sleep behavior disorder 04/28/2016 Encounters Date Type Specialty Care Team Description 04/14/2020 Office Visit Neurology Prakash Franklin MD Ata xia (Primary Dx); Dysphagia, unsp ecified type; PBA (pseudobulb ar affect) 04/14/2020 Travel after 05/13/2019 Surgical History Surgery Date Site/Laterality Comments GALLBLADDER SURGERY 07/11/1996 - 07/10/1997 TUBAL LIGATION SECTION 1990, 1992 Medical History Medical History Date Comments Difficulty balancing Dizziness Family History Medical History Relation Name Comments Heart disease Mother Hypertension Mother Relation Name Status Comments Mother Social History Tobacco Use Types Packs/Day Years Used Date Current Every Day Smoker 1 Smokeless Tobacco: Never Used Alcohol Use Drinks/Week oz/Week Comments No Sex Assigned at Date Recorded Not on file COVID-19 Exposure Response Date Recorded In the last month, have you been in contact with No / Unsure 04/14/2020 2:34 PM CDT someone who was confirmed or suspected to have Coronavirus / COVID-19? Last Filed Vital Signs Vital Sign Reading Time Taken Comments Blood Pressure 132/83 04/14/2020 9:55 AM CDT Pulse 101 04/14/2020 9:55 AM CDT Temperature 36.6 C (97.8 F) 04/14/2020 9:55 AM CDT Respiratory Rate - - Oxygen Saturation - - Inhaled Oxygen Concentration - - Weight 120 kg (265 lb) 04/14/2020 9:55 AM CDT Height 170.2 cm (5' 7") 04/14/2020 9:55 AM CDT Body Mass Index 41.5 04/14/2020 9:55 AM CDT Plan of Treatment Date Type Specialty Care Team Description 10/16/2020 [facility] [address] [place], [place] [address] [phone] Health Maintenance Due Date Last Done Comments CERVICAL CANCER SCREENING 1994 INFLUENZA VACCINE 02/09/2020 Results Not on fileafter 05/13/2019 Advance Directives For more information, please contact: [phone] Type Date Recorded Patient Medical Detail Representative Explanati on Advance Directives, Living Will and Medical Power of Coroner Transport Technician
--- OUTSIDE RECORDS SUMMARY | 2020-05-13 16:02 | XMS REPORT | Continuity of Care Document ---
:1975 Author Organization [facility] t Address [address] [place] [address] Care Team Providers Name Role Phone Myke ERWIN Primary Care Physician Harsha Franklin MD Attending Clinician Payers Payer Name Policy Type Policy Effective Date Expiration Date Sour ce Number [facility] MEDICAREUNITED [id number] 2019 [facility] 00:00:00 [facility] [id number]/-PresentHMO Problems Condition Condition Condition Status Onset Resolution Last Treating Co mments Source Name Details Category Date Date Treatment Clinician Date Ataxia Ataxia Disease Active 2015-07 Fuentes 0-19 [facility]:00: st 00 REM sleep REM sleep Disease Active 2015-07 David salmon behavior behavior 0-19 Method i disorder disorder 00:00: st 00 Allergies, Adverse Reactions, Alerts This patient has no known allergies or adverse reactions. Family History Family Member Diagnosis Comments Start Date Stop Date Source Natural mother Heart disease Fuentes [facility] Natural mother Hypertension Maxie [facility] Social History Social Habit Start Date Stop Date Quantity Comments Source Sex Assigned At [facility] ethodi Exposure to Not sure Maxie Metho dist SARS-CoV-2 (event) Cigarettes smoked 2020-04-14 2020-04-14 Alfredo Garcia current (pack per 00:00:00 00:00:00 day) - Reported Tobacco use and 2020-04-14 2020-04-14 [facility]:00 Alcohol intake 2020-04-14 2020[facility]04-14 [facility] non-drinker of alcohol (finding) Smoking Status Start Date Stop Date Source Current every day smoker 2020-04-14 00:00:00 David ston [facility] Medications Ordered Filled Start Stop Current Ordering Indication Dosage Frequency Signature Comments Components Source Medication Medication Date Date Medication? Clinician (SIG) Name Name ergfelisacigeorgie 2019-07 Yes [id number] Q7D Take [place] 0-05 50,000 [facility] (VITAMIN 10:01: Units by st D2) 50,000 45 mouth once unit a week. capsule traMADol 2019-07 2020- No acute pain 50mg Q.5D Take 50 mg Fuentes (ULTRAM) 50 0-05 10-05 by mouth 2 M ethodi mg tablet 10:01: 00:00 (two) st 45 :00 times a day .Acute Pain. cholecalcif 2019-07 2020- No QD Take by Anival salcidool, 0-05 10-05 mouth [facility] vitamin D3, 10:01: 00:[address] (VITAMIN 45 :00 D3) 5,000 unit tablet DULoxetine 2019-07 Yes 60mg QD Take 60 mg H ouviky (CYMBALTA) 0-05 by mouth Metho di 60 MG 10:00: daily. st capsule 03 dextrometho 2019-07 Yes 1{capsu Q12H Take 1 [place] rphan-quini 0-05 le} capsule by Ri thodi dine 00:00: mouth st (Nuedexta) 00 every 12 20-10 mg (twelve) capsule hours. levothyroxi Yes 50ug QD Take 50 David viky ne 8-18 mcg by [facility] (SYNTHROID) 00:00: mouth st 50 mcg 00 every tablet morning. metFORMIN Yes 1000mg Q.5D Take 1,000 Alfredo (GLUCOPHAGE 8-06 mg by [facility] ) 1,000 mg 00:00: mouth 2 st tablet 00 (two) times a day. carbidopa-l 2018-07- No 1 p.o. 3 [place] evodopa 0-08 10-05 times [facility] (SINEMET) 00:00: 00:[address] 25-100 mg 00 :00 week, then per tablet 1.5 p.o. 3 times daily x1 week, then 2 p.o. 3 times daily clonAZEPAM 2018-07- No Titrate as Alfredo (KlonoPIN) 0-08 10-05 directed Meth mariam 1 MG tablet 00:00: 00:[address] 00 :00 twice daily. Vital Signs Vital Name Observation Time Observation Value Comments Source Systolic blood 2020-04-14 09:55:00 132 mm[Hg] Gigito n [facility] pressure Diastolic blood 2020-04-14 09:55:00 83 mm[Hg] [place]ot[place] on Mandaeism pressure Heart rate 2020-04-14 09:55:00 101 /min Fuentes [facility] Body temperature 2020-04-14 09:55:00 36.56 [place] [facility] Body height 2020-04-14 09:55:00 170.2 cm Maxie Mandae[facility] Body weight 2020-04-14 09:55:00 120.203 kg Fuentes [facility] BMI 2020-04-14 09:55:00 41.50 kg/m2 Maxie [facility] Procedures This patient has no known procedures. Plan of Care Planned Activity Planned Date Details Comments Source Future Scheduled 2020-02-09 INFLUENZA VACCINE Faina gotti [facility] Test 00:00:00 [code = INFLUENZA VACCINE] Future Scheduled 1994 Screening for [facility] thodist Test 00:00:00 malignant neoplasm of cervix (procedure) [code = 882458037] Encounters Start End Encounter Admission Attending Care Care Encounter Source Date/Time Date/Time Type Type Clinicians Facility Department ID 2020-04-14 2020-04-14 Outpatient PENDING SALE TO [facility] [id number] Maxie 00:00:00 00:00:00 ALLIE [address] 2019-03-17 2019-03-17 Outpatient PENDING SALE TO [facility] [id number] Maxie 00:00:00 00:00:00 ALLIE [address] Results This patient has no known results.
[2020-05-13] MEDS ORDERED: NA CHLORIDE 0.9% 500 ML ONE ×2 (16:22→18:31)
[2020-05-13 16:31] LABS: Arterial Blood Carboxyhemoglob 3.5 % (0-1.5); Blood Gas Oxyhemoglobin 86.9 % (94-97); Blood O2 Saturation 91.2 % (92-98.5)
[2020-05-13 16:41] LABS: Absolute Lymphocytes (CBC) 0.6 K/uL (0.7-4.9); Basophils % 0.2 % (0-1.3); Hematocrit 40.5 % (36.0-45.0); Lymphocytes % 3.9 % (15.3-44.8); MPV 8.8 fL (7.6-11.3)
[2020-05-13 16:46] LABS: Protime INR 1.38
[2020-05-13 16:50] LABS: Potassium 4.5 mmol/L (3.5-5.1); Troponin (Emerg Dept Use Only) 10.5 ng/mL (0.0-0.045)
[2020-05-13] MEDS ORDERED: ASPIRIN 81 MG CHEWABLE TABLET ONE (17:11)
--- NOTE | 2020-05-13 17:30 | RAD REPORT ---
EXAM DESCRIPTION: RAD - Chest Single View - 05/13/2020 5:05 pm CLINICAL HISTORY: DYSPNEA COMPARISON: August 15 TECHNIQUE: AP portable chest image was obtained 05/13/2020 5:05 pm . FINDINGS: Lung volumes are low. Extensive airspace opacification is present throughout much of the l eft lung field with little right lung field opacification evident. Asymmetric pattern is most likely a large left-sided pneumonia. Heart and vasculature are normal. No measurable pleural effusion and no pneumothorax. No acute bony abnormality seen. No acute aortic findings suspected. IMPRESSION: Extensive airspace opacification through most of the left lung field most likely a large pneumonia.
[2020-05-13] MEDS ORDERED: Levofloxacin 750mg IV 750 MG/150 ML BAG IV ONE (18:01)
[2020-05-13 18:04] LABS: Arterial Blood Carboxyhemoglob 2.6 % (0-1.5); Blood Gas Oxyhemoglobin 87.2 % (94-97); Blood O2 Saturation 90.4 % (92-98.5)
[2020-05-13] MEDS ORDERED: NA CHLORIDE 0.9% 1,000 ML ONE (18:09)
--- NOTE | 2020-05-13 18:18 | EDPHYS ---
Physician Documentation [facility] Name: Vicky Black Age: 44 yrs Sex: Female : 1975 Arrival Date: 05/13/2020 Time: 16:02 Bed 4 Private MD: ED Physician Kyle Dempsey HPI: 05/13 16:15 This 44 yrs old Female presents to ER via EMS with complaints of Shortness Of cp Breath. 16:15 The patient has shortness of breath at rest. cp 16:15 Onset: The symptoms/episode began/occurred today. Duration: The symptoms are cp continuous, and are steadily getting worse. Associated signs and symptoms: Pertinent negatives: chest pain, fever. Unable to obtain HPI due to patient on BIPAP due to respiratory distress. 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 - Social history:: Smoking status: Patient denies any tobacco usage or history of. ROS: 16:20 Constitutional: Negative for fever. cp 16:20 Eyes: Negative for injury, pain, redness, and discharge. cp 16:20 Cardiovascular: Negative for chest pain. 16:20 Respiratory: Positive for shortness of breath, at rest. 16:20 Abdomen/GI: Positive for diarrhea, Negative for abdominal pain, constipation. 16:20 Neuro: Negative for altered mental status. 16:20 All other systems are negative. Exam: 16:10 ECG was reviewed by the Attending Physician. cp 16:25 Head/Face: Normocephalic, atraumatic. cp 16:25 Constitutional: The patient appears alert, awake, non-diaphoretic, non-toxic, well developed, well nourished, obese. 16:25 Eyes: Periorbital structures: appear normal, Pupils: equal, round, and reactive to cp light and accomodation, Extraocular movements: intact throughout, Conjunctiva: normal, no exudate, no injection, Sclera: no appreciated abnormality, Lids and lashes: appear normal, bilaterally. 16:25 ENT: External ear(s): are unremarkable, Nose: is normal, Mouth: Lips: moist, Posterior pharynx: Airway: no evidence of obstruction, patent. 16:25 Neck: ROM/movement: is normal, is supple, without pain, no range of motions limitations. 16:25 Chest/axilla: Inspection: normal, Palpation: is normal, no crepitus, no tenderness. 16:25 Cardiovascular: Rate: tachycardic, Rhythm: regular, Edema: very mild lower leg bilaterally, JVD: is not appreciated. 16:25 Respiratory: moderate respiratory distress is noted, Respirations: labored breathing, shallow respirations, that is moderate, tachypnea, that is moderate, Breath sounds: decreased breath sounds, that are moderate, throughout. 16:25 Abdomen/GI: Inspection: abdomen appears normal, Palpation: abdomen is soft and non-tender, in all quadrants. 16:25 Back: pain, is absent. 16:25 Skin: no rash present. 16:25 Neuro: Orientation: unable to test, patient on BIPAP, Mentation: able to follow commands, Motor: moves all fours, strength is normal. 21:00 ECG was reviewed by the Attending Physician. cp Vital Signs: 16:02 BP 115 / 96; Pulse 121; Resp 30; Temp 98(TE); Pulse Ox 88% on R/A; tw2 16:10 Pulse 118; Resp 29; Pulse Ox 93% on 65% BiPAP; tw2 16:54 BP 107 / 68; Pulse 109; Resp 26; Pulse Ox 95% on 65% BiPAP; sv 17:18 Weight 111 kg (R); tw2 17:37 BP 108 / 71; Pulse 111; Resp 47; Pulse Ox 95% on BiPAP; sv 17:43 Pulse Ox 94% on 75% BiPAP; tw2 18:18 BP 112 / 74; Pulse 109; Resp 40; Pulse Ox 94% on 75% BiPAP; sv 18:51 BP 106 / 73; Pulse 107; Resp 39; Pulse Ox 89% on 75% BiPAP; tw2 18:54 Pulse 105; Resp 24; Pulse Ox 94% on 100% BiPAP; tw2 16:02 RT at bedside with BIPAP, Dr. Dempsey at bedside at this time. tw2 16:10 14/12, rate 14 per Melisa, RT tw2 17:43 16/14, rate 18, 75% FIO2 per Melisa, RT tw2 18:51 provider notified, RT paged. tw2 18:54 per RT Ishan at bedside at this time. tw2 MDM: 16:15 Patient medically screened. 18:15 Data reviewed: vital signs, nurses notes, lab test result(s), EKG, radiologic studies, cp plain films, I have discussed the patient's presentation/case with the attending Emergency Department Physician; and as a result, I will admit patient. 18:15 Antibiotic administration: Levaquin. 18:16 Physician consultation: Galo Stringer MD was called at 18:16, was contacted at 18:16, cp regarding admission, to the ICU, would like consultation with Dr. Godinez. 11 16:06 Order name: ABG; Complete Time: 16:51 05/13 16:06 Order name: D-Dimer; Complete Time: 16:53 05/13 16:06 Order name: Basic Metabolic Panel; Complete Time: 16:53 05/13 18:08 Interpretation: Normal except: CL 97; GLUC 424; BUN 25; GFR 47. 05/13 16:06 Order name: Blood Culture Adult (2) 05/13 16:06 Order name: CBC with Diff; Complete Time: 22:36 05/13 18:12 Interpretation: Normal except: WBC 15.9; DAMARI% 90.2; LYM% 3.9; NEUT A 14.3. 05/13 16:06 Order name: Lactate; Complete Time: 16:53 05/13 18:12 Interpretation: Abnormal: LAC 2.5. 05/13 16:06 Order name: Procalcitonin; Complete Time: 17:49 05/13 16:06 Order name: Protime (+inr); Complete Time: 16:53 05/13 16:06 Order name: Ptt, Activated; Complete Time: 16:53 05/13 16:06 Order name: Troponin (emerg Dept Use Only); Complete Time: 16:53 05/13 16:07 Order name: BNP; Complete Time: 16:53 11 16:07 Order name: COVID-19 rn 05/13 16:07 Order name: Flu; Complete Time: 17:49 05/13 16:26 Order name: Glucose, Ancillary Testing; Complete Time: 16:51 EDMS 05/13 18:04 Order name: ABG Arterial Blood Gas; Complete Time: 18:07 EDMS 05/13 18:08 Interpretation: Reviewed. cp 05/13 19:03 Order name: Manual Differential; Complete Time: 22:36 EDMS 05/13 19:16 Order name: Troponin I; Complete Time: 22:36 EDMS 05/13 21:22 Order name: Lactate Sepsis 2 HR Follow-up; Complete Time: 22:36 EDMS 05/13 22:24 Order name: Vancomycin Level Trough; Complete Time: 22:36 EDMS 05/13 22:38 Order name: Glucose, Ancillary Testing; Complete Time: 22:57 EDMS 05/13 23:12 Order name: ABG Arterial Blood Gas; Complete Time: 23:57 EDMS 05/14 05:27 Order name: ABG Arterial Blood Gas EDMS 05/14 05:40 Order name: Basic Metabolic Panel EDMS 05/14 05:40 Order name: Lipid Profile EDMS 05/14 05:49 Order name: CBC with Automated Diff EDMS 05/14 06:23 Order name: Glucose, Ancillary Testing EDMS 05/14 06:44 Order name: Phosphorus EDMS 05/14 06:44 Order name: Magnesium EDMS 05/14 06:49 Order name: Troponin I EDLA 05/14 08:44 Order name: CBC Smear Scan EDLA 05/13 16:06 Order name: Chest Single View XRAY; Complete Time: 17:49 rn 05/13 16:06 Order name: Accucheck; Complete Time: 16:28 rn 05/13 16:06 Order name: Cardiac monitoring; Complete Time: 16:08 rn 05/13 16:06 Order name: EKG - Nurse/Tech; Complete Time: 16:08 rn 05/13 16:06 Order name: IV Saline Lock - Large Bore; Complete Time: 16:24 rn 05/13 16:06 Order name: Labs collected and sent; Complete Time: 16:24 rn 05/13 16:06 Order name: O2 Per Protocol; Complete Time: 16:08 rn 05/13 16:06 Order name: O2 Sat Monitoring; Complete Time: 16:08 rn 05/13 16:06 Order name: BIPAP rn 05/13 16:54 Order name: CT Chest For PE Angio rn 05/13 19:16 Order name: CONS Physician Consult EDLA 05/13 19:16 Order name: Respiratory Therapy Consult EDLA 05/14 01:22 Order name: XRAY Chest (1 view) jr8 05/14 02:59 Order name: Chest Single View XRAY [facility] 05/14 07:13 Order name: RAD EDLA 05/14 09:13 Order name: SARS-COV-2 RT PCR EDLA 05/14 09:35 Order name: CT EDLA 05/14 10:10 Order name: ABG Arterial Blood Gas EDMS EC:10 Rate is 121 beats/min. Rhythm is regular. KY interval is normal. QRS interval is cp normal. QT interval is normal. T waves are Inverted in leads III, aVR. Interpreted by me. Reviewed by me. 21:00 Rate is 101 beats/min. Rhythm is regular. KY interval is normal. QRS interval is cp normal. QT interval is normal. T waves are Inverted in leads III, aVR. Interpreted by me. Reviewed by me. Administered Medications: 16:19 Drug: NS 0.9% 500 ml Route: IV; Rate: bolus; Site: right wrist; tw2 17:07 Follow up: Response: No adverse reaction; IV Status: Completed infusion; IV Intake: tw2 500ml 17:00 Drug: Aspirin Chewable Tablet 324 mg Route: PO; tw2 17:47 Follow up: Response: No adverse reaction tw2 17:50 Drug: LevaQUIN 750 mg Volume: 150 ml; Route: IVPB; Infused Over: 90 mins; Site: right tw2 forearm; 19:20 Follow up: Response: No adverse reaction; IV Status: Completed infusion; IV Intake: jb4 150ml 17:59 Drug: NS 0.9% 1000 ml Route: IV; Rate: 1000 ml; Site: right forearm; tw2 19:00 Follow up: Response: No adverse reaction; IV Status: Completed infusion; IV Intake: jb4 1000ml 18:22 Drug: NS 0.9% 500 ml Route: IV; Rate: bolus; Site: left forearm; tw2 19:00 Follow up: Response: No adverse reaction; IV Status: Completed infusion; IV Intake: jb4 500ml 18:22 Drug: Lovenox 1 mg/kg Route: Sub-Q; Site: left lower abdomen; tw2 19:00 Follow up: Response: No adverse reaction jb4 23:00 Drug: Albuterol 1.25 mg Route: Inhalation; jb4 23:15 Drug: Lasix 80 mg Route: IVP; Site: right forearm; jb4 Disposition: 05/14 15:28 Co-signature as Attending Physician, Kyle Dempsey MD. rn Disposition: 05/13/20 18:17 Hospitalization ordered by Galo Stringer for Inpatient Admission. Preliminary diagnosis are Respiratory failure, unspecified with hypoxia, Pneumonia due to other specified bacteria. - Bed requested for [facility] ER HOLD. - Status is Inpatient Admission. bd - Condition is Serious. - Problem is new. - Symptoms have improved. Signatures: Dispatcher [employer] EDMS Macie Elizondo Corey, MD MD cha Nieto, Roman, MD MD rn Lasagna, Tonya RN RN tl1 Jhony Randall PA PA cp Anny Gonzalez RN RN tw2 Jeyson Caicedo, RN RN jb4 Fabrice Rojas, RN RN rv Leeanna Blake RN RN ll1 Corrections: (The following items were deleted from the chart) 05/13 19:43 18:17 Hospitalization Ordered by Galo Stringer MD for Inpatient Admission. Preliminary tl1 diagnosis is Respiratory failure, unspecified with hypoxia; Pneumonia due to other specified bacteria. Bed requested for Intensive Care Unit. Status is Inpatient Admission. Condition is Serious. Problem is new. Symptoms have improved. cp 05/14 10:55 05/13 19:43 05/13/2020 18:17 Hospitalization Ordered by aGlo Stringer MD for Inpatient bd Admission. Preliminary diagnosis is Respiratory failure, unspecified with hypoxia; Pneumonia due to other specified bacteria. Bed requested for [facility] ER HOLD. Status is Inpatient Admission. Condition is Serious. Problem is new. Symptoms have improved. tl1
--- NOTE | 2020-05-13 18:18 | ER ---
Nurse's Notes [facility] Name: Vicky Black Age: 44 yrs Sex: Female : 1975 Arrival Date: 05/13/2020 Time: 16:02 Bed 4 Private MD: Diagnosis: Respiratory failure, unspecified with hypoxia;Pneumonia due to other specified bacteria Presentation: 05/13 16:02 Chief complaint: EMS states: SOB and diarrhea today. O2 sat. 77% RA. C PAP-O2 up to ll1 97%. No known fever. Incontinent of diarrhea stools today. Coronavirus screen: Client denies travel out of the [place] in the last 14 days. difficulty breathing, fatigue, shortness of breath, Client presents with at least one sign or symptom that may indicate coronavirus-19. Standard/surgical mask placed on the client. Ebola Screen: Patient denies travel to an Ebola-affected area in the 21 days before illness onset. Initial Sepsis Screen: Does the patient meet any 2 criteria? RR > 20 per min. HR > 90 bpm. Yes Does the patient have a suspected source of infection? Yes: Productive cough/pneumonia. Risk Assessment: Do you want to hurt yourself or someone else? Patient reports no desire to harm self or others. Onset of symptoms was May 13, 2020. 16:02 Method Of Arrival: Ambulatory 1 16:02 Method Of Arrival: EMS: [facility] 16:02 Acuity: CHARITO 2 ll1 Triage Assessment: 16:02 General: Behavior is cooperative, appropriate to baseline. Respiratory: Reports EMS tw2 reports SOB at rest today per family Onset: The symptoms/episode began/occurred today, the patient has severe shortness of breath. 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 - Social history:: Smoking status: Patient denies any tobacco usage or history of. Screenin:07 Abuse screen: Denies threats or abuse. Nutritional screening: No deficits noted. Fall tw2 Risk Secondary diagnosis (15 points) impaired mobility. 16:27 Tuberculosis screening: No symptoms or risk factors identified. tw2 Assessment: 16:10 General: Appears in no apparent distress. obese, Behavior is cooperative, appropriate tw2 for age. Pain: Denies pain. Neuro: Level of Consciousness is alert, obeys commands, Oriented to person, place, pt at baseline at this time.. Cardiovascular: Heart tones S1 S2 Capillary refill < 3 seconds Rhythm is sinus tachycardia. Cardiovascular: Edema is 1+ to left midcalf, left ankle, right midcalf and right ankle. Respiratory: Airway is patent Respiratory effort is even, labored, Respiratory pattern is regular, tachypnea Patient placed on BiPAP: FiO2%: 65 Breath sounds are diminished bilaterally. GI: Abdomen is round non-distended, obese, Bowel sounds present X 4 quads. : No signs and/or symptoms were reported regarding the genitourinary system. EENT: No signs and/or symptoms were reported regarding the EENT system. Derm: No signs and/or symptoms reported regarding the dermatologic system. Musculoskeletal: Range of motion: intact in all extremities. 17:00 Reassessment: No changes from previously documented assessment. Patient and/or family tw2 updated on plan of care and expected duration. Pain level reassessed. 18:00 Reassessment: No changes from previously documented assessment. Patient and/or family tw2 updated on plan of care and expected duration. Pain level reassessed. 18:00 Reassessment: spouse delmy ph# [phone]. tw2 18:49 Reassessment: pt having increased wob and rr, o2 sat 87%, RT paged at this time, tw2 provider notified. 18:54 Reassessment: RT at bedside at this time. tw2 Vital Signs: 16:02 BP 115 / 96; Pulse 121; Resp 30; Temp 98(TE); Pulse Ox 88% on R/A; tw2 16:10 Pulse 118; Resp 29; Pulse Ox 93% on 65% BiPAP; tw2 16:54 BP 107 / 68; Pulse 109; Resp 26; Pulse Ox 95% on 65% BiPAP; sv 17:18 Weight 111 kg (R); tw2 17:37 BP 108 / 71; Pulse 111; Resp 47; Pulse Ox 95% on BiPAP; sv 17:43 Pulse Ox 94% on 75% BiPAP; tw2 18:18 BP 112 / 74; Pulse 109; Resp 40; Pulse Ox 94% on 75% BiPAP; sv 18:51 BP 106 / 73; Pulse 107; Resp 39; Pulse Ox 89% on 75% BiPAP; tw2 18:54 Pulse 105; Resp 24; Pulse Ox 94% on 100% BiPAP; tw2 16:02 RT at bedside with BIPAP, Dr. Dempsey at bedside at this time. tw2 16:10 14/12, rate 14 per Melisa, RT tw2 17:43 16/14, rate 18, 75% FIO2 per Melisa, RT tw2 18:51 provider notified, RT paged. tw2 18:54 per Ishan,RT at bedside at this time. tw2 ED Course: 16:02 Patient arrived in ED. ll1 16:02 Side rails up X2. pattern attendant on. Pulse ox on. NIBP on. Warm blanket given. tw2 16:04 Triage completed. ll1 16:04 Arm band placed on Patient placed in an exam room, on a stretcher. ll1 16:05 EKG done, by ED staff, reviewed by Kyle Dempsey MD. sv 16:05 Maintain EMS IV. Dressing intact. Site clean \T\ dry. Gauge \T\ site: 20G L AC. sv 16:14 Jhony Randall PA is PHCP. cp 16:15 Kyle Dempsey MD is Attending Physician. cp 16:18 Anny Gonzalez RN is Primary Nurse. tw2 16:23 BIPAP Sent. sv 16:30 Inserted saline lock: 20 gauge in right forearm, using aseptic technique. ,using tw2 aseptic technique. per MUNA Sotelo Blood collected. 16:30 Inserted saline lock: 20 gauge in left forearm, using aseptic technique. ,using aseptic tw2 technique. Ashleigh<RN Blood collected. 16:53 X-ray(s) taken. sv 17:06 Chest Single View XRAY In Process Unspecified. EDMS 17:54 Feliciano cath inserted, using sterile technique, [address], balloon inflated, to sv gravity drainage, returned clear yellow urine. Patient tolerated well. 18:17 Galo Stringer MD is Hospitalizing Provider. cp 19:02 Report given to MUNA Leo. tw2 19:17 Primary Nurse role handed off by Anny Gonzalez, MUNA jb4 19:17 Jeyson Caicedo, RN is Primary Nurse. jb4 20:45 No provider procedures requiring assistance completed. Patient admitted, IV remains in jb4 place. 21:06 EKG done, by ED staff, reviewed by Jhony Leung MD. ds4 Administered Medications: 16:19 Drug: NS 0.9% 500 ml Route: IV; Rate: bolus; Site: right wrist; tw2 17:07 Follow up: Response: No adverse reaction; IV Status: Completed infusion; IV Intake: tw2 500ml 17:00 Drug: Aspirin Chewable Tablet 324 mg Route: PO; tw2 17:47 Follow up: Response: No adverse reaction tw2 17:50 Drug: LevaQUIN 750 mg Volume: 150 ml; Route: IVPB; Infused Over: 90 mins; Site: right tw2 forearm; 19:20 Follow up: Response: No adverse reaction; IV Status: Completed infusion; IV Intake: jb4 150ml 17:59 Drug: NS 0.9% 1000 ml Route: IV; Rate: 1000 ml; Site: right forearm; tw2 19:00 Follow up: Response: No adverse reaction; IV Status: Completed infusion; IV Intake: jb4 1000ml 18:22 Drug: NS 0.9% 500 ml Route: IV; Rate: bolus; Site: left forearm; tw2 19:00 Follow up: Response: No adverse reaction; IV Status: Completed infusion; IV Intake: jb4 500ml 18:22 Drug: Lovenox 1 mg/kg Route: Sub-Q; Site: left lower abdomen; tw2 19:00 Follow up: Response: No adverse reaction jb4 23:00 Drug: Albuterol 1.25 mg Route: Inhalation; jb4 23:15 Drug: Lasix 80 mg Route: IVP; Site: right forearm; jb4 Intake: 17:07 IV: 500ml; Total: 500ml. tw2 19:00 IV: 1000ml; Total: 1500ml. jb4 19:00 IV: 500ml; Total: 2000ml. jb4 19:20 IV: 150ml; Total: 2150ml. jb4 Outcome: 18:17 Decision to Hospitalize by Provider. cp 20:45 Admitted to ER Hold. Please see [facility] for further documentation. jb4 20:45 Condition: stable 20:45 Discharge instructions given to patient, family, Instructed on the need for admit, Demonstrated understanding of instructions. 05/14 10:55 Patient left the ED. bd Signatures: Dispatcher [employer] EDMS Macie Elizondo Stephanie RN RN Cheo Ray ds4 Jhony Randall PA PA cp Wise, Tara RN RN tw2 Jeyson Caicedo RN RN jb4 Leeanna Blake RN RN ll1 Corrections: (The following items were deleted from the chart) 05/13 16:55 16:54 BP 107 / 68; Pulse 109bpm; Resp 20bpm; Pulse Ox 95% 02 65% BiPAP; sv sv 18:05 16:30 Inserted saline lock: 20 gauge in right forearm, using aseptic technique. ,using tw2 aseptic technique. per MUNA Sotelo Blood collected. tw2 18:51 18:49 Reassessment: pt having increased wob and rr, o2 sat 87%, RT paged at this time. tw2 tw2 19:48 19:45 Response: No adverse reaction sharron jbHermelindo
[2020-05-13] MEDS ORDERED: ENOXAPARIN 100 MG/ML SYR SQ ONE (18:31)
[2020-05-13 19:03] LABS: Blood Morphology Comment NOT SEEN (NOT SEEN); Platelet Estimate ADEQ
[2020-05-13] MEDS ORDERED: ONDANSETRON 4 MG/2 ML VIAL IV PRN (19:11)
[2020-05-13] MEDS: FAMOTIDINE 20 MG/2 ML VIAL IV SCH (20:28)
[2020-05-13] MEDS ORDERED: FAMOTIDINE 20 MG/2 ML VIAL IV ONE (20:36)
[2020-05-13] MEDS: ALBUTEROL 2.5 MG/3 ML NEB SOL NEB SCH (20:54)
[2020-05-13] MEDS ORDERED: ALBUTEROL 2.5 MG/3 ML NEB SOL ONE ×2 (21:07→22:52)
[2020-05-13 22:02] VITALS: BMI 34.1
[2020-05-13] MEDS ORDERED: D50W 25 GM/50 ML SYRINGE/VIAL IV PRN (22:26)
[2020-05-13] MEDS ORDERED: GLUCAGON 1 MG/VIAL IM PRN (22:26)
[2020-05-13] MEDS ORDERED: INSULIN -REGULAR HUMAN 50 UNIT/0.5 ML ML SQ SCH (23:00)
[2020-05-13 23:11] LABS: Arterial Blood Carboxyhemoglob 1.2 % (0-1.5); Blood Gas Oxyhemoglobin 89.6 % (94-97); Blood O2 Saturation 91.3 % (92-98.5)
[2020-05-13] MEDS ORDERED: INSULIN -REGULAR HUMAN 50 UNIT/0.5 ML ML ONE (23:17)
[2020-05-13] MEDS ORDERED: FUROSEMIDE 40 MG/4 ML VIAL ONE (23:19)
[2020-05-14] MEDS ORDERED: RSI MEDICATION KIT IV ONE (00:51)
[2020-05-14] MEDS ORDERED: NA CHLORIDE 0.9% 500 ML ONE ×2 (00:51→08:31)
[2020-05-14] MEDS ORDERED: propofoL 1,000 MG/100 ML VIAL IV ONE ×4 (00:51→13:24)
[2020-05-14] MEDS: propofoL 1,000 MG/100 ML VIAL IV PRN (01:09)
[2020-05-14] MEDS ORDERED: MIDAZOLAM HCL 2 MG/2 ML INJ ONE ×5 (01:18→10:49)
[2020-05-14] MEDS ORDERED: FENTANYL CITR 100 MCG/2 ML ONE ×3 (01:18→10:49)
--- NOTE | 2020-05-14 01:18 | P.CNS ---
Date of Consult: 05/14/20 I was consulted on behalf of the Emergency Room for the above patient after they attempted to get a hold of the PCP Dr. Stringer multiple times in the ED but were unsuccessful. Patient was having continued decompensation of respiratory status regardless of being on bipap. We attempted to mitigate with lasix and albuterol treatments but patient continues to have increased respiratory rate and now feels fatigued. Patient was intubated at that time to control airway and to help in patients respiratory status. CXR will be repeated for intubation and NG tube placement. Will continue to monitor patient overnight for respiratory and hemodynamic stability. Patient currently doing better with saturation at 100% on FiO2 of 100% with rate of 18 and TV of 550 with no PEEP at this time.
[2020-05-14] MEDS ORDERED: NA CHLORIDE 0.9% 250 ML IV PRN (01:34)
[2020-05-14] MEDS ORDERED: NOREPINEPHRINE 4 MG in D5W 250 ML IV PRN (02:35)
[2020-05-14] MEDS ORDERED: NOREPINEPHRINE 4mg/D5W 250mL 4 MG/250 ML BAG IV ONE (02:39)
[2020-05-14] MEDS ORDERED: LORazepam 2 MG/ML VIAL ONE (04:42)
[2020-05-14] MEDS ORDERED: CEFTRIAXONE 1 GM/NS 50 ML 1 GM/50 ML BAG IV SCH (04:56)
[2020-05-14] MEDS ORDERED: CEFTRIAXONE/SWI 1gm 1 GM/10 ML SYR IV SCH (05:00)
[2020-05-14] MEDS ORDERED: ACETAMINOPHEN 650MG/RECT SUPP PR ONE ×3 (05:06→13:40)
[2020-05-14] MEDS ORDERED: CEFTRIAXONE/SWI 1gm 1 GM/10 ML SYR ONE (05:11)
[2020-05-14 05:26] LABS: Arterial Blood Carboxyhemoglob 1.5 % (0-1.5); Blood O2 Saturation 98.4 % (92-98.5)
[2020-05-14 05:36] LABS: Basophils % 0.4 % (0-1.3); Hematocrit 38.7 % (36.0-45.0); Lymphocytes % 10.7 % (15.3-44.8); MPV 9.1 fL (7.6-11.3); RBC Red Blood Cell Count 4.17 M/uL (3.86-4.86)
[2020-05-14 05:40] LABS: Potassium 3.1 mmol/L (3.5-5.1)
[2020-05-14] MEDS ORDERED: LORazepam 2 MG/ML VIAL IV ONE (05:42)
[2020-05-14] MEDS ORDERED: FENTANYL CITR 100 MCG/2 ML IV ONE (05:43)
[2020-05-14] MEDS: INSULIN -REGULAR HUMAN 50 UNIT/0.5 ML ML SQ SCH ×3 (06:00→17:44)
[2020-05-14] MEDS ORDERED: NA CHLORIDE 0.9% 1,000 ML IV SCH ×2 (06:00→09:00)
[2020-05-14 06:20] LABS: Magnesium 1.6 mg/dL (1.8-2.4); Phosphorus 1.8 mg/dL (2.5-4.9)
[2020-05-14] MEDS ORDERED: INSULIN -REGULAR HUMAN 50 UNIT/0.5 ML ML ONE ×3 (06:35→17:55)
[2020-05-14] MEDS ORDERED: KCL 20 MEQ/100 mL IVPB 20 MEQ/100 ML BAG IV SCH (07:00)
[2020-05-14] MEDS ORDERED: MAGNESIUM SULFATE 1 gm IVPB 1 GM/100 ML BAG IV ONE ×2 (07:00→08:31)
--- NOTE | 2020-05-14 07:13 | RAD REPORT ---
EXAM DESCRIPTION: RAD - Chest Single View - 05/14/2020 1:40 am CLINICAL HISTORY: post intubation COMPARISON: May 13 TECHNIQUE: AP portable chest image was obtained 05/14/2020 1:40 am . FINDINGS: Endotracheal tube has been placed. Tip is mid aortic arch level 3 cm above the homar. NG tube has been placed. Tip extends below the diaphragm but is not fully visualized. Trachea remains mi dline. Worsening left hemithorax opacification noted. Air bronchograms seen in the lung base. Left he midiaphragm is now obscured. No new right lung field finding. No pneumothorax. No acute bony abnormal ity seen. No acute aortic findings suspected. IMPRESSION: NG tube and ET tube placement in good position. Worsening left lung field parenchymal opacification.
[2020-05-14] MEDS ORDERED: POTASSIUM PHOS IN 0.9 % NACL 15 MMOL/250 ML BAG IV ONE (07:30)
[2020-05-14] MEDS: ALBUTEROL 2.5 MG/3 ML NEB SOL NEB SCH ×4 (07:31→20:00)
[2020-05-14] MEDS ORDERED: ALBUTEROL 2.5 MG/3 ML NEB SOL ONE ×3 (07:41→20:04)
[2020-05-14] MEDS ORDERED: NA CHLORIDE 0.9% 500 ML IV ONE (08:03)
[2020-05-14] MEDS ORDERED: Pharmacy Consult 1 EA XX PRN (08:14)
--- NOTE | 2020-05-14 08:17 | P.CNS ---
Date of Consult: 05/14/20 Reason for Consult: Respiratory failure Chief Complaint: Respiratory failure and shock History of Present Illness: Patient is 44 years of age currently on a ventilator maximum dose of propofol and Levophed drip admitted with significant hypoxemia failed CPAP and was subsequently intubated history of cerebellar ataxia Patient has a large decubitus ulcer in the sacrococcygeal area with the area of necrosis Allergies No Known Allergies Allergy (Verified 05/30/18 14:51) Home Medications: Cholecalciferol (Vitamin D3) [Vitamin D3] 1,000 unit PO DAILY 08/15/19 Duloxetine HCl 60 mg PO DAILY 08/15/19 Glimepiride [Amaryl] 2 mg PO DAILY 90 Days #90 tab 08/19/19 Metformin ER [Glucophage ER*] 500 mg PO DAILY 90 Days #90 tab.sa 08/19/19 Spironolactone [Aldactone*] 25 mg PO DAILY 90 Days #25 tab 08/19/19 levoFLOXacin [Levaquin] 500 mg PO DAILY 4 Days #4 tab 08/19/19 - Past Medical/Surgical History Diabetic: No -: Cerebellum Ataxia -: Possible COPD -: Section -: Tubal Ligation -: Cholecystectomy - Family History Mother Medical History: Hypertension - Social History Smoking Status: Current every day smoker Alcohol use: No CD- Drugs: No Caffeine use: Yes Review of Systems is unable to be obtained Physical Examination Temp Pulse Resp BP Pulse Ox 102.8 F H 107 H 16 125/66 98 05/14/20 06:00 05/14/20 06:00 05/14/20 06:00 05/14/20 06:00 05/14/20 06:00 General: Unresponsive Respiratory: Clear to auscultation bilaterally, Diminished Cardiovascular: No edema, Normal S1 S2 Gastrointestinal: Normal bowel sounds, Soft and benign Laboratory Data (last 24 hrs) 05/13/20 16:10: WBC 15.9 H, Hgb 13.3, Hct 40.5, Plt Count 215 05/13/20 16:10: Sodium 136, Potassium 4.5, BUN 25 H, Creatinine 1.24, Glucose 424 H* 05/13/20 16:10: PT 16.2 H, INR 1.38, APTT 25.8 - Problems (1) Respiratory failure Current Visit: Yes Status: Acute Plan: Patient is 44 years of age admitted with respiratory failure in shock she appears to have infiltrate on the left lung white count elevated patient was hypoxic hypercarbic bolus with IV fluids titrate the Levophed down continue with meropenem sputum cultures blood cultures pending had vancomycin patient has a large area of sacral decubitus ulcer most likely contributing to her sepsis need surgical Consul to Qualifiers: Respiratory failure complication: hypoxia and hypercapnia (2) Elevated troponin Current Visit: Yes Status: Acute Plan: Possible underlying coronary artery disease fully anti coagulated 2D echo Consul cardiology
[2020-05-14] MEDS ORDERED: KCL 20 MEQ/100 mL IVPB 20 MEQ/100 ML BAG IV ONE (08:31)
[2020-05-14] MEDS ORDERED: NA CHLORIDE 0.9% 1,000 ML ONE ×2 (08:31→21:29)
[2020-05-14] MEDS ORDERED: FAMOTIDINE 20 MG/2 ML VIAL IV ONE ×2 (08:31→21:04)
[2020-05-14 08:43] LABS: Blood Morphology Comment NOT SEEN (NOT SEEN); Platelet Estimate ADEQ; White Blood Cell Scan OK (OK)
[2020-05-14] MEDS ORDERED: Meropenem 1000 MG/VIAL IV SCH (09:00)
[2020-05-14] MEDS: FAMOTIDINE 20 MG/2 ML VIAL IV SCH ×2 (09:00→20:53)
[2020-05-14] MEDS ORDERED: SUCCINYLCHOLINE 20 MG/ML (10 ML) IV ONE (09:21)
[2020-05-14] MEDS ORDERED: ETOMIDATE 20 MG/10 ML VIAL IV ONE (09:21)
[2020-05-14] MEDS: Meropenem 1,000 MG in NA CHLORIDE 0.9% 100 ML IV SCH ×2 (09:30→16:25)
--- NOTE | 2020-05-14 09:34 | RAD REPORT ---
EXAM DESCRIPTION: CT - Chest For Pe Angio - 05/14/2020 9:16 am CLINICAL HISTORY: DYSPNEA COMPARISON: Chest For Pe Angio dated 05/30/2018; Chest Single View dated 05/14/2020 TECHNIQUE: Dynamically enhanced 3 mm thick images of the chest were obtained during administration o f approximately 150mL Isovue 370 IV contrast. Coronal and oblique MIP reconstruction images were gene rated and reviewed. Exam utilizes a protocol to evaluate the pulmonary arterial tree. All CT scans are performed using dose optimization technique as appropriate and may include automated exposure control or mA/KV adjustment according to patient size. FINDINGS: No pulmonary emboli are identified. The aorta as imaged shows no acute or suspicious finding. No pericardial thickening or effusion. Airspace consolidation with central air bronchograms noted involving most of the left upper lobe. The apex and medial suprahilar region are generally spared. No cavitation or abscess within the consolid ation. Left lower lobe is mostly atelectasis. Some component infiltrate could be present but would be a small percentage. There is pleural fluid along the fissure. Overall no large pleural effusion. The re is no pneumothorax on the left. No underlying solid mass lesion at the hilum or endobronchial lesi on. Patchy infiltrate changes are present along the posterior aspect of the right upper lobe superiorly. Right middle lobe is generally spared any significant finding. Parenchymal opacification at the base of the right lower lobe appears to be a mixture of infiltrate and atelectasis. No right-sided pleural effusion or pneumothorax. No mediastinal or hilar suspicious masses. No chest wall masses or abnormal axillary lymphadenopathy. NG tube is in place extending below the diaphragm. The tip of the NG tube is not fall within the fie ld of view for this examination. Endotracheal tube is in place. Tip terminates at the superior aspect of the aortic arch well above the homar. IMPRESSION: No pulmonary emboli identified. Consolidation of most of the left upper lobe most likely an acute pneumonia. Patchy areas of consolidation are present at the base of the right lower lobe and in the superior asp ect of the right upper lobe. Near complete atelectasis of the left lower lobe. There is fluid along the fissure.
[2020-05-14] MEDS ORDERED: HALOPERIDOL LACT 5 MG/ML INJ IV PRN (09:36)
[2020-05-14] MEDS: Enoxaparin 120 MG/0.8 ML SYR SQ SCH ×2 (09:50→20:53)
[2020-05-14] MEDS: VANCOMYCIN 2 GM in NA CHLORIDE 0.9% 500 ML IVPB SCH ×2 (09:50→20:52)
[2020-05-14 10:09] LABS: Arterial Blood Carboxyhemoglob 1.3 % (0-1.5); Blood Gas Oxyhemoglobin 86.1 % (94-97); Blood O2 Saturation 88.1 % (92-98.5)
--- NOTE | 2020-05-14 12:59 | RAD REPORT ---
EXAM DESCRIPTION: RAD - Chest Single View - 05/14/2020 3:26 am CLINICAL HISTORY: Endotracheal Tube, cough COMPARISON: None TECHNIQUE: Chest 1 view AP portable FINDINGS: Trachea midline. Cardiac silhouette within normal limits. Marked dense left chest or hemithoracic opacity. No pneumothorax is seen. No acute fracture is seen. ETT tip in expected location of distal trachea. NGT courses towards left upper abdomen with tip not imaged. IMPRESSION: 1. Marked dense left chest or hemithoracic opacity. This may represent large pleural effusion, atelectasis, asymmetric pulmonary edema, and/or infection. 2. Medical support devices in place. Electronically signed by: Jerry Browning MD 05/14/2020 3:41 AM SPECIAL EDUCATION SCIENCE TEACHER Due to temporary technical issues with the PACS/Fluency reporting system, reports are being signed by the in house radiologists without review as a courtesy to insure prompt reporting. The interpreting radiologist is fully responsible for the content of the report.
[2020-05-14] MEDS ORDERED: ACETAMINOPHEN 650MG/RECT SUPP PR PRN (13:14)
[2020-05-14 14:48] LABS: CKMB Creatine Kinase MB 11.8 ng/mL (0.3-3.6)
[2020-05-14] MEDS: NACHLORIDE 0.45% 1,000 ML with NA BICARB 8.4% 50 MEQ IV SCH ×2 (16:26)
[2020-05-14] MEDS ORDERED: ENOXAPARIN 40 MG/0.4 ML SQ SCH (17:00)
[2020-05-14] MEDS ORDERED: Levofloxacin 750mg IV 750 MG/150 ML BAG IV SCH (18:00)
[2020-05-14] MEDS: FENTANYL CITR 100 MCG/2 ML IV PRN (19:08)
[2020-05-14] MEDS ORDERED: FLUCONAZOLE 400 MG IVPB 400 MG/200 ML BAG IV SCH (21:00)
--- NOTE | 2020-05-14 21:23 | P.HP ---
Certification for Inpatient Patient admitted to: Inpatient With expected LOS: >2 Midnights Practitioner: I am a practitioner with admitting privileges, knowledge of patient current condition, hospital course, and medical plan of care. 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 SHE HAS BEDSORES AND I HAVE TRIED TO GET HER AN AIR MATTRESS BUT SHE NEVER GETS OFF RECLINER. MEDICINES WILL NOT WORK IF SHE CAN'T OFF LOAD HER ULCERS. I HAD A LONG TALK WITH HER ABOUT HER DIET AND MEDICINES FOR DIABETES AT HER VISITS BUT WAS NO BENEFIT. SHE ENDS UP IN HOSPITAL WITH DYS PNEA, FOUND TO HAVE LARGE PNEUMONIA RUQ AND R SIDE LOWER LOBE ATELECTASIS. SHE IS INTUBATED OVERNIGHT AND KEPT IN ICU. WE DON'T HAVE HER 'S NUMBER TO CONTACT. HER COVID TEST IS NEGATIVE. Allergies No Known Allergies Allergy (Verified 05/30/18 14:51) Home Medications: Cholecalciferol (Vitamin D3) [Vitamin D3] 1,000 unit PO DAILY 08/15/19 Duloxetine HCl 60 mg PO DAILY 08/15/19 Glimepiride [Amaryl] 2 mg PO DAILY 90 Days #90 tab 08/19/19 Metformin ER [Glucophage ER*] 500 mg PO DAILY 90 Days #90 tab.sa 08/19/19 Spironolactone [Aldactone*] 25 mg PO DAILY 90 Days #25 tab 08/19/19 levoFLOXacin [Levaquin] 500 mg PO DAILY 4 Days #4 tab 08/19/19 - Past Medical/Surgical History Diabetic: No -: Cerebellum Ataxia -: Possible COPD -: Section -: Tubal Ligation -: Cholecystectomy - Family History Mother -: Hypertension - Social History Smoking Status: Unknown if ever smoked Alcohol use: No CD- Drugs: No Caffeine use: Yes Review of Systems is unable to be obtained Physical Examination - Vital Signs Temperature: 102.3 F Blood Pressure: 100/66 Pulse: 100 Respirations: 16 Pulse Ox (%): 95 - Physical Exam General: Severe distress, Obese, Other (ITNUBATED AND SEDATED TO SUPPRESS AGITATION ADN PULLING OF TUBE.) Respiratory: Diminished Cardiovascular: Normal S1 S2 - Studies Microbiology Data (last 24 hrs): 05/13/20 16:15 Nasopharnyx Influenza Type A Antigen Screen - Final 05/13/20 16:15 Nasopharnyx Influenza Type B Antigen Screen - Final Assessment and Plan - Problems (Diagnosis) (1) Septic shock Current Visit: Yes Status: Acute Plan: I CHANGED FROM LEVAQUIN TO MERREM. ADDED VANCOMYCIN AND DIFLUCAN SHE WAS HAVING FEVER DEPSITE BEING ON MERREM AND VANCOMYIN. HER WBC IS HIGHER. SHE IS NOT IMPROVING. HER BP HAS DROPPED AND IS ON LEVOPHED DRIP (2) Pneumonia Current Visit: Yes Status: Acute Plan: ABOVE. (3) Uncontrolled diabetes mellitus Current Visit: Yes Status: Chronic Plan: DIET IS POOR ON INSULIN BUT NOT ABLE TO TITRATE AT HOME. 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 THIS IS A RARE DISORDER AND IS THE MAIN REASON FOR HER MEDICAL DECLINE. - Advance Directives Does patient have a Living Will: No Does patient have a Durable POA for Healthcare: No
[2020-05-14] MEDS ORDERED: FLUCONAZOLE 200mg IVPB 400 MG/200 ML BAG IV SCH (22:00)
[2020-05-14] MEDS: NA CHLORIDE 0.9% 1,000 ML IV SCH (22:01)
[2020-05-14] MEDS ORDERED: FLUCONAZOLE 200mg IVPB 400 MG/200 ML BAG IV ONE (22:03)
[2020-05-14] MEDS ORDERED: INSULIN -REGULAR HUMAN 50 UNIT/0.5 ML ML SQ SCH (22:27)
[2020-05-15] MEDS: Meropenem 1,000 MG in NA CHLORIDE 0.9% 100 ML IV SCH ×3 (00:29→17:21)
[2020-05-15] MEDS: propofoL 1,000 MG/100 ML VIAL IV PRN ×4 (00:29→21:56)
[2020-05-15] MEDS: INSULIN -REGULAR HUMAN 50 UNIT/0.5 ML ML SQ SCH ×4 (00:55→17:28)
[2020-05-15] MEDS ORDERED: INSULIN -REGULAR HUMAN 50 UNIT/0.5 ML ML ONE ×3 (01:07→12:15)
[2020-05-15] MEDS: ALBUTEROL 2.5 MG/3 ML NEB SOL NEB SCH ×2 (01:25→07:40)
[2020-05-15] MEDS ORDERED: ALBUTEROL 2.5 MG/3 ML NEB SOL ONE ×2 (01:29→07:53)
[2020-05-15] MEDS: NACHLORIDE 0.45% 1,000 ML with NA BICARB 8.4% 50 MEQ IV SCH ×2 (02:30)
[2020-05-15] MEDS: MIDAZOLAM HCL 2 MG/2 ML INJ IV PRN (03:14)
[2020-05-15] MEDS ORDERED: MIDAZOLAM HCL 2 MG/2 ML INJ ONE (03:27)
[2020-05-15] MEDS: NA CHLORIDE 0.9% 1,000 ML IV SCH ×2 (04:00→07:53)
[2020-05-15 05:23] LABS: Absolute Lymphocytes (CBC) 1.3 K/uL (0.7-4.9); Basophils % 0.5 % (0-1.3); Hematocrit 34.8 % (36.0-45.0); Lymphocytes % 11.5 % (15.3-44.8); MPV 8.6 fL (7.6-11.3); RBC Red Blood Cell Count 3.77 M/uL (3.86-4.86)
[2020-05-15 06:12] LABS: Arterial Blood Carboxyhemoglob 1.6 % (0-1.5); Blood O2 Saturation 90.3 % (92-98.5)
[2020-05-15 06:37] LABS: ALT/SGPT 177 U/L (12-78); AST/SGOT 210 U/L (15-37); Albumin 2.4 g/dL (3.4-5.0); Alkaline Phosphatase 59 U/L (45-117); BUN Blood Urea Nitrogen 8 mg/dL (7-18); Bicarbonate 31 mmol/L (21-32); Bilirubin Total 0.9 mg/dL (0.2-1.0); Glucose Level 169 mg/dL (74-106); Magnesium 1.8 mg/dL (1.8-2.4); Phosphorus 2.2 mg/dL (2.5-4.9); Protein, Total 6.3 g/dL (6.4-8.2); Sodium Level 140 mmol/L (136-145)
[2020-05-15 06:54] LABS: Potassium 2.6 mmol/L (3.5-5.1)
[2020-05-15] MEDS ORDERED: POTASSIUM PHOS IN 0.9 % NACL 15 MMOL/250 ML BAG IV ONE ×3 (07:00→22:17)
[2020-05-15] MEDS: KCL 20 MEQ/100 mL IVPB 20 MEQ/100 ML BAG IV SCH ×5 (07:00→22:09)
[2020-05-15] MEDS: FENTANYL CITR 100 MCG/2 ML IV PRN ×2 (07:26→21:56)
--- NOTE | 2020-05-15 07:35 | EKG ---
Test Date: 2020-05-13 Test Time: 20:59:17 Transcribing Operators Supervisor: ANA MEASUREMENT RESULTS: Intervals: Rate: 101 CT: 134 QRSD: 84 QT: 344 QTc: 446 [place]: P: 47 CT: 134 QRS: 22 T: 14 INTERPRETIVE STATEMENTS: Sinus tachycardia Cannot rule out Anterior infarct, age undetermined Abnormal ECG Compared to ECG 05/13/2020 16:02:26 No significant changes Electronically Signed On 05-15-20 07:32:39 REPEAT CHIEF by Jordy Medina
--- NOTE | 2020-05-15 07:36 | EKG ---
Test Date: 2020-05-13 Test Time: 16:02:26 Resource Conservation Specialist: MELLO MEASUREMENT RESULTS: Intervals: Rate: 121 CT: 158 QRSD: 72 QT: 286 QTc: 406 [place]: P: 61 CT: 158 QRS: 33 T: 22 INTERPRETIVE STATEMENTS: Sinus tachycardia Cannot rule out Anterior infarct, age undetermined Abnormal ECG Compared to ECG 08/15/2019 16:14:30 No significant changes Electronically Signed On 05-15-20 07:32:45 TERRA COTTA ROOFER HELPER by Jordy Medina
[2020-05-15] MEDS: FAMOTIDINE 20 MG/2 ML VIAL IV SCH ×2 (07:37→20:03)
[2020-05-15] MEDS ORDERED: FENTANYL CITR 100 MCG/2 ML ONE ×2 (07:38→22:05)
[2020-05-15] MEDS: Enoxaparin 120 MG/0.8 ML SYR SQ SCH (07:38)
[2020-05-15] MEDS ORDERED: NA CHLORIDE 0.9% 1,000 ML ONE (07:49)
[2020-05-15] MEDS ORDERED: FAMOTIDINE 20 MG/2 ML VIAL IV ONE ×2 (07:49→20:07)
[2020-05-15] MEDS ORDERED: propofoL 1,000 MG/100 ML VIAL IV ONE ×4 (07:57→22:06)
--- NOTE | 2020-05-15 07:58 | RAD REPORT ---
EXAM DESCRIPTION: Geno Single View05/15/2020 6:29 am CLINICAL HISTORY: Chest pain COMPARISON: May 14, 2020 FINDINGS: Left lung consolidation has partially resolved Right lung opacities have partially resolved The heart is mildly enlarged Endotracheal tube has its tip 5 centimeters above the homar. Nasogastric tube present within the sto mach IMPRESSION: Improvement in the bilateral pulmonary opacities probably pneumonia
[2020-05-15] MEDS: VANCOMYCIN 2 GM in NA CHLORIDE 0.9% 500 ML IVPB SCH ×2 (08:36→21:08)
--- NOTE | 2020-05-15 08:36 | ECHO ---
HEIGHT: 5 ft 11 in WEIGHT: 244 lb 11.2 oz DATE OF STUDY: 05/14/[address]: Irving Godinez MD 2-DIMENSIONAL: YES M.MODE: YES DOPPLER: YES COLOR FLOW: YES TDS: YES PORTABLE: YES DEFINITY: NO BUBBLE STUDY: NO DIAGNOSIS: RESPIRATORY FAILURE, SHOCK, ELEVATED TROPONIN CARDIAC HISTORY: CATHERIZATION: NO SURGERY: NO PROSTHETIC VALVE: NO PACEMAKER: NO MEASUREMENTS (cm) DIASTOLIC (NORMALS) SYSTOLIC (NORMALS) IVSd 1.2 (0.6-1.2) LA Diam 2.8 (1.9-4.0) LVEF 54% LVIDd 3.9 (3.5-5.7) LVIDs 2.8 (2.0-3.5) %FS 27% LVPWd 1.2 (0.6-1.2) Ao Diam 2.5 (2.0-3.7) 2 DIMENSIONAL ASSESSMENT: RIGHT ATRIUM: NORMAL LEFT ATRIUM: NORMAL RIGHT VENTRICLE: NORMAL LEFT VENTRICLE: NORMAL TRICUSPID VALVE: NORMAL MITRAL VALVE: NORMAL PULMONIC VALVE: NORMAL AORTIC VALVE: NORMAL PERICARDIAL EFFUSION: NONE AORTIC ROOT: NORMAL LEFT VENTRICULAR WALL MOTION: NORMAL DOPPLER/COLOR FLOW: NORMAL COMMENTS: NORMAL 2D ECHOCARDIOGRAM WITH DOPPLER. NO WALL MOTION ABNORMALITY. NO EFFUSION. TECHNOLOGIST: Reece COMBS
--- NOTE | 2020-05-15 11:03 | PN ---
Date of Progress Note: 05/15/2020 Subjective: Ms. Black is 44 was admitted with sepsis, pneumonia, sacral ulcers, fever, acute respira tory failure, and rhabdomyolysis. She remains intubated. Potassium today is 2.6 that needs to be montalvo pplemented. Her liver function enzymes are elevated slightly because of sepsis. CPKs, MBs, and trop onin are pending. She was being hydrated with bicarb because of rhabdomyolysis. She is slightly hyp otensive today at 85/60 and she can probably afford fluid bolus. Her last white count was 11.7, whic h has improved. Her PO2 was 58, pCO2 41, pH of 7.41. All those have improved compared to yesterday. Her echocardiogram was perfectly normal. I think we are dealing with pneumonia and sepsis and rhab domyolysis and respiratory failure secondary to pneumonia. I agree with inhalers, antibiotics. Decr ease the dose of Lovenox hydration, potassium supplementation. Continue present regimen. No cardiac issues are going on right now. I will sign off her case. I will be available for questions if the need arises. TIANA/CLAUDIA Voice ID: [id number] Report ID: [id number]
--- NOTE | 2020-05-15 11:39 | CON ---
Date of Consultation: 05/14/2020 Reason For Consultation: Elevated troponin. History Of Present Illness: Ms. Black is a 44-year-old woman with history of cerebellar ataxia, came in with pneumonia, acute respiratory failure requiring intubation, was noted to have elevated tropon in, elevated CPK but low MB consistent with rhabdomyolysis. She actually is very septic secondary to pelvic abscesses secondary to immobility from her cerebellar ataxia. She also has a history of diab etes and hypertension. She came in with a white count of 18,000. D-dimer . Troponin was 35. Potassium of 3.1. CPK was 3600. She was febrile at 102.8. She was in sinus tachycardia. She had and chest x-ray showed pneumonia in the left base. She is now on antibiotics, inhaler s, Diflucan, Lovenox. She is on insulin and potassium supplementation. Her last blood gas was pH was 7.2. Past Medical History: As stated above. Allergies: NONE. Review of Systems: Negative. Social History: Negative. Family History: Negative. Medications: Include metformin, Aldactone and glimepiride at home. Physical Examination: General: She was intubated. HEENT: Negative. Neck: Supple. No bruit. Chest: Reveals rales at both bases. Decreased breath sound in the left base. Cardiac: Exam revealed sinus tachycardia, otherwise no murmurs gallops or rubs. Abdomen: Obese. Extremities: Revealed no clubbing, cyanosis, or edema. Diagnostic Data: As stated earlier. Impression And Plan: 1.Elevated CPKs, MBs, and troponin suggestive of rhabdomyolysis. I suggest hydration, bicarbonate. 2.Hypokalemia and needs to be supplemented. 3.Respiratory failure secondary to pneumonia, being intubated. I agree with that management and I a gree with all the antibiotics. 4.Hypertension, well controlled. 5.Diabetes, well controlled. 6.Pelvic abscess and sacral abscesses, being handled by Dr. Stringer and Surgery. Pulmonology is also consulted. There is an echocardiogram pending. We will see what that shows, but I doubt we are deal ing with CHF. I think this is more of a pneumonia and septic pictures. NB/MODL Voice ID: [id number] Report ID: [id number]
[2020-05-15] MEDS ORDERED: ALBUTEROL 2.5 MG/3 ML NEB SOL NEB PRN ×2 (13:01→15:00)
--- NOTE | 2020-05-15 13:05 | P.PN ---
Subjective Date of Service: 05/15/20 Chief Complaint: Respiratory failure and shock Subjective: Improving (Patient is improving is off the Levophed now still running fever copious secretions) Review of Systems is unable to be obtained Physical Examination - Vital Signs Temperature: 100.8 F Blood Pressure: 97/48 Pulse: 91 Respirations: 16 Pulse Ox (%): 100 - Physical Exam General: Mild distress, Other (Patient is arousable) Respiratory: Crackles/rales, Expiratory wheezes Cardiovascular: No edema, Regular rate/rhythm, Edema Gastrointestinal: Normal bowel sounds, Soft and benign, Other (Patient is a large decubitus ulcer in the sacrococcygeal area) Assessment & Plan - Problems (Diagnosis) (1) Respiratory failure Current Visit: Yes Status: Acute Plan: Respiratory failure still on a ventilator patient is a has on minimal oxygen requirement echocardiogram is normal copious secretions Qualifiers: Respiratory failure complication: hypoxia and hypercapnia (2) Elevated troponin Current Visit: Yes Status: Acute Plan: Doubt cardiac she has normal echo no wall motion abnormalities (3) Septic shock Current Visit: Yes Status: Acute Plan: Patient admitted with septic shock most likely source is the large decubitus ulcer continue with meropenem vancomycin she still has some fever currently off vasopressors fluids have been discontinued hypokalemia cultures are negative so far CPK is improving rhabdomyolysis is more likely from necrosis general surgery console did continue with IV lactate Ringer's once excretions have decline would consider weaning this likely and after the do hinson meant
[2020-05-15] MEDS: Ringers Lactate 1,000 ML IV SCH (13:13)
[2020-05-15] MEDS ORDERED: Ringers Lactate 1,000 ML IV ONE (13:26)
--- NOTE | 2020-05-15 15:27 | P.CNS ---
Date of Consult: 05/14/20 PC: I was asked to see this 44-year-old female regards to a sacral wound. HPC: The patient has a history cerebral ataxia. She was having short of breath and was brought to emergency room for evaluation treatment. PMH: Cerebral ataxia PSHx: Previous , cholecystectomy SOC: No known allergies SYS REVIEW: Patient is intubated at the current time O/E patient i he is intubated and on a ventilator opens her eyes however in response HEENT: Nonicteric, Chest: ET tube in position and secured ABD: Negative LOCO: At the top of the sacrum there is an open wound. It measures approximately in 7 cm x 6 cm in size. There is some dark areas consistent with congealed blood on the lower portion. There is also complete skin breakdown over this with some compromise of obviously the wound edges. On palpation appears that there is quite a lot of muscle remaining in this area. It appears that this dark area is coagulated blood underneath the skin. I could not accurately assess the full viability of the muscle at this time. I did not feel any crepitus in the area. There is no purulent discharge on the dressing that was over this is actually tried. There is no foul odor consistent with Pseudomonas or necrotic tissue. DATA: Has atelectasis, also was acidotic on admission. Elevated creatinine kinase IMPRESSION: Sacral wound, difficult to assess but does not appear to have any gangrene or fasciitis at the moment. Hematoma most likely blocking a area of necrotic muscle. PLAN: Continue to resuscitate patient. Telling the on-off pressure support room appears to be responding. She will require surgical debridement at some point. In the interim time. Will start some santal to the area. Will reassess in the a.m.
[2020-05-15] MEDS: COLLAGENASE 30 GM OINTMENT TOP SCH (15:54)
[2020-05-15] MEDS ORDERED: KCL 20 MEQ/100 mL IVPB 20 MEQ/100 ML BAG IV ONE ×3 (18:45→22:11)
[2020-05-15] MEDS: FLUCONAZOLE 400 MG IVPB 400 MG/200 ML BAG IV SCH (21:09)
--- NOTE | 2020-05-15 21:19 | P.PN ---
Subjective Date of Service: 05/15/20 Chief Complaint: Respiratory failure and shock Subjective: Improving HER LEVOPHED HAS BEEN TAPERED OFF, SHE IS STILL ON VENT RESPONDING WELL. Review of Systems is unable to be obtained Physical Examination - Vital Signs Temperature: 100.4 F Blood Pressure: 105/47 Pulse: 89 Respirations: 16 Pulse Ox (%): 98 - Physical Exam General: Unresponsive, Obese (ON VENT) HEENT: Atraumatic, PERRLA, EOMI Neck: Supple, JVD not distended Respiratory: Clear to auscultation bilaterally, Normal air movement Cardiovascular: Regular rate/rhythm, Normal S1 S2 Gastrointestinal: Normal bowel sounds, No tenderness Musculoskeletal: No tenderness Integumentary: No rashes Neurological: Normal speech, Normal tone, Normal affect Lymphatics: No axilla or inguinal lymphadenopathy - Studies Medications List Reviewed: Yes Assessment And Plan - Current Problems (Diagnosis) (1) Septic shock Current Visit: Yes Status: Acute Plan: I CHANGED FROM LEVAQUIN TO MERREM. ADDED VANCOMYCIN AND DIFLUCAN SHE WAS HAVING FEVER DEPSITE BEING ON MERREM AND VANCOMYIN. HER WBC IS HIGHER. SHE IS NOT IMPROVING. HER BP HAS DROPPED AND IS ON LEVOPHED DRIP OFF LEVOPHED IV FLUIDS CONTINUED. (2) Pneumonia Current Visit: Yes Status: Acute Plan: ABOVE. (3) Uncontrolled diabetes mellitus Current Visit: Yes Status: Chronic Plan: DIET IS POOR ON INSULIN BUT NOT ABLE TO TITRATE AT HOME. 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 THIS IS A RARE DISORDER AND IS THE MAIN REASON FOR HER MEDICAL DECLINE. (6) Rhabdomyolysis Current Visit: Yes Status: Acute Plan: IV WITH BICARB. (7) Pressure ulcer of back Current Visit: Yes Status: Acute Plan: MULTIPLE ULCERS FOR LONG DUARATION. SHE SITS ALL DAY, CAN'T SLEEP IN RECLINER. CAN'T USE AIR MATTRESS. CAN'T MOVE TO CLEAN FROM ATAXIA. ULCERS CAN NEVER HEAL IN SUCH SITUATION. Qualifiers: Pressure injury stage: stage 3 Qualified Code(s): L89.103 - Pressure ulcer of unspecified part of back, stage 3
[2020-05-15] MEDS: LORazepam 2 MG/ML VIAL IV PRN (23:30)
[2020-05-15] MEDS ORDERED: LORazepam 2 MG/ML VIAL ONE (23:42)
[2020-05-16] MEDS: Meropenem 1,000 MG in NA CHLORIDE 0.9% 100 ML IV SCH ×4 (00:30→17:00)
[2020-05-16] MEDS: MIDAZOLAM HCL 2 MG/2 ML INJ IV PRN (02:51)
[2020-05-16] MEDS ORDERED: MIDAZOLAM HCL 2 MG/2 ML INJ ONE ×2 (03:01→17:13)
[2020-05-16] MEDS: Ringers Lactate 1,000 ML IV SCH ×2 (04:25→12:06)
[2020-05-16] MEDS: LORazepam 2 MG/ML VIAL IV PRN (04:26)
[2020-05-16] MEDS ORDERED: Ringers Lactate 1,000 ML IV ONE ×2 (04:36→12:09)
[2020-05-16] MEDS ORDERED: LORazepam 2 MG/ML VIAL ONE (04:36)
[2020-05-16 05:14] LABS: Absolute Lymphocytes (CBC) 1.3 K/uL (0.7-4.9); Basophils % 0.4 % (0-1.3); Hematocrit 33.5 % (36.0-45.0); Lymphocytes % 11.7 % (15.3-44.8); MPV 8.6 fL (7.6-11.3); RBC Red Blood Cell Count 3.67 M/uL (3.86-4.86)
[2020-05-16] MEDS: INSULIN -REGULAR HUMAN 50 UNIT/0.5 ML ML SQ SCH ×4 (05:52→17:45)
[2020-05-16 05:59] LABS: Arterial Blood Carboxyhemoglob 1.6 % (0-1.5); Blood Gas Oxyhemoglobin 92.9 % (94-97); Blood O2 Saturation 95.3 % (92-98.5)
[2020-05-16 06:01] LABS: ALT/SGPT 123 U/L (12-78); AST/SGOT 102 U/L (15-37); Albumin 2.3 g/dL (3.4-5.0); Alkaline Phosphatase 61 U/L (45-117); BUN Blood Urea Nitrogen 4 mg/dL (7-18); Bicarbonate 33 mmol/L (21-32); Bilirubin Total 0.8 mg/dL (0.2-1.0); Glucose Level 134 mg/dL (74-106); Magnesium 1.8 mg/dL (1.8-2.4); Phosphorus 2.2 mg/dL (2.5-4.9); Potassium 3.1 mmol/L (3.5-5.1); Protein, Total 6.3 g/dL (6.4-8.2); Sodium Level 144 mmol/L (136-145)
[2020-05-16] MEDS: FENTANYL CITR 100 MCG/2 ML IV PRN ×2 (06:04→12:06)
[2020-05-16 06:07] LABS: Creatine Phosphokinase 1334 U/L (26-192)
[2020-05-16] MEDS ORDERED: FENTANYL CITR 100 MCG/2 ML ONE ×3 (06:16→17:13)
[2020-05-16] MEDS ORDERED: KCL 20 MEQ/100 mL IVPB 20 MEQ/100 ML BAG IV SCH (07:00)
[2020-05-16] MEDS ORDERED: MAGNESIUM SULFATE 1 gm IVPB 1 GM/100 ML BAG IV ONE ×2 (07:00→08:40)
[2020-05-16] MEDS: METOPROLOL TARTRATE 5 MG/5 ML INJ IV SCH ×3 (08:31→21:00)
[2020-05-16] MEDS: FAMOTIDINE 20 MG/2 ML VIAL IV SCH ×2 (08:32→22:08)
[2020-05-16] MEDS: ENOXAPARIN 40 MG/0.4 ML SQ SCH (08:32)
[2020-05-16] MEDS: VANCOMYCIN 2 GM in NA CHLORIDE 0.9% 500 ML IVPB SCH ×2 (08:33→21:00)
[2020-05-16] MEDS ORDERED: KCL 20 MEQ/100 mL IVPB 20 MEQ/100 ML BAG IV ONE (08:40)
[2020-05-16] MEDS ORDERED: Meropenem 0 GM/0 ML BAG ONE (08:40)
[2020-05-16] MEDS ORDERED: ENOXAPARIN 40 MG/0.4 ML SQ ONE (08:40)
[2020-05-16] MEDS ORDERED: FAMOTIDINE 20 MG/2 ML VIAL IV ONE ×2 (08:40→22:04)
[2020-05-16] MEDS ORDERED: METOPROLOL TARTRATE 5 MG/5 ML INJ IV ONE ×3 (08:41→22:04)
--- NOTE | 2020-05-16 08:59 | RAD REPORT ---
EXAM DESCRIPTION: RAD - Chest Single View - 05/16/2020 5:39 am CLINICAL HISTORY: vented Chest pain. COMPARISON: Chest Single View dated 05/15/2020; Chest Single View dated 05/14/2020; Chest Single View dated 05/14/2020; Chest Single View dated 05/13/2020; Chest For Pe Angio dated 05/14/2020 FINDINGS: Portable technique limits examination quality. Haziness is present in both lungs, greater on the left. Tip of the ET tube is above the homar. Enter ic tube descends into the upper abdomen. The heart is moderately enlarged.
[2020-05-16] MEDS ORDERED: POTASSIUM PHOS IN 0.9 % NACL 15 MMOL/250 ML BAG IV ONE (09:00)
[2020-05-16] MEDS: COLLAGENASE 30 GM OINTMENT TOP SCH (09:00)
--- NOTE | 2020-05-16 10:28 | P.PN ---
Subjective Date of Service: 05/16/20 Chief Complaint: Sepsis Subjective: Improving (Patient is improving still has some fever seen by general surgery) Review of Systems is unable to be obtained Physical Examination - Vital Signs Temperature: 100.4 F Blood Pressure: 182/91 Pulse: 106 Respirations: 19 Pulse Ox (%): 99 - Physical Exam General: Alert, Cooperative Respiratory: Clear to auscultation bilaterally Cardiovascular: No edema, Normal S1 S2 - Studies Medications List Reviewed: Yes Assessment & Plan - Problems (Diagnosis) (1) Respiratory failure Current Visit: Yes Status: Acute Plan: Patient is currently on a ventilator copious secretions borderline temperature normal echocardiogram cultures negative fever probably from the necrotic area in his sacral coccygeal region blood pressure is elevated CPK is declining white count has declined significantly will discuss with general surgery regarding weaning Qualifiers: Respiratory failure complication: hypoxia and hypercapnia (2) Elevated troponin Current Visit: Yes Status: Acute Plan: Doubt cardiac she has normal echo no wall motion abnormalities
[2020-05-16] MEDS: propofoL 1,000 MG/100 ML VIAL IV PRN ×2 (12:06→23:00)
[2020-05-16] MEDS ORDERED: propofoL 1,000 MG/100 ML VIAL IV ONE ×2 (12:09→22:05)
--- NOTE | 2020-05-16 12:53 | P.PN ---
Date of Service: 05/16/20 S: According to nurses report patient is comfortable on the ventilator. O: Vital signs are stable, appears to be improving clinically, white cell count is down slightly. An inspection of the wound, it appears to have some necrotic skin and underlying hematoma. A: Necrotic sacral wound P: Patient stable at this time due to the operating room for debridement of this wound. We could do it under general anesthesia while the patient is intubated. She will most likely require a wound VAC until the wound is cleaned up. She will most likely require return to the OR at some point for closure of the wound. We will talk to the family about this.
--- NOTE | 2020-05-16 16:37 | P.PN ---
Subjective Date of Service: 05/16/20 Chief Complaint: Sepsis Subjective: Improving HER LEVOPHED HAS BEEN TAPERED OFF, SHE IS STILL ON VENT RESPONDING WELL. CLINICALLY SHE HAS IMPROVED. BP IS STABLE AND HIGH NOW. I TALKED TO AND DISCUSSED WITH HIM YEST. Review of Systems 10-point ROS is otherwise unremarkable Physical Examination - Vital Signs Temperature: 100.4 F Blood Pressure: 187/85 Pulse: 85 Respirations: 16 Pulse Ox (%): 99 - Physical Exam General: Moderate distress, Obese HEENT: Atraumatic, PERRLA, EOMI Neck: Supple, JVD not distended Respiratory: Clear to auscultation bilaterally, Normal air movement Cardiovascular: Regular rate/rhythm, Normal S1 S2 Gastrointestinal: Normal bowel sounds, No tenderness Musculoskeletal: No tenderness Integumentary: No rashes, Pressure ulcer (ARE OLD. SHE HAS FEW AREAS OF STAGE 3 ULCERS ON BOTH GLUTEALS FOR MONTHS. I HAVE WORKED TO OFF LOAD HER BUT SHE SITS ON HER GLUTS ALL DAY SHE HAS NO OTHER CHOICE BEING PARALZYED.) Neurological: Normal speech, Normal tone, Normal affect Lymphatics: No axilla or inguinal lymphadenopathy - Studies Medications List Reviewed: Yes Assessment And Plan - Current Problems (Diagnosis) (1) Septic shock Current Visit: Yes Status: Acute Plan: I CHANGED FROM LEVAQUIN TO MERREM. ADDED VANCOMYCIN AND DIFLUCAN SHE WAS HAVING FEVER DEPSITE BEING ON MERREM AND VANCOMYIN. HER WBC IS HIGHER. SHE IS NOT IMPROVING. HER BP HAS DROPPED AND IS ON LEVOPHED DRIP OFF LEVOPHED IV FLUIDS CONTINUED. CONT ABX. SHE IS OFF HER LEVOPHED CULTURES NOT GROWING MUCH SO FAR. (2) Pneumonia Current Visit: Yes Status: Acute Plan: ABOVE. (3) Uncontrolled diabetes mellitus Current Visit: Yes Status: Chronic Plan: DIET IS POOR ON INSULIN BUT NOT ABLE TO TITRATE AT HOME. 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 THIS IS A RARE DISORDER AND IS THE MAIN REASON FOR HER MEDICAL DECLINE. (6) Rhabdomyolysis Current Visit: Yes Status: Acute Plan: IV WITH BICARB. (7) Pressure ulcer of back Current Visit: Yes Status: Acute Plan: MULTIPLE ULCERS FOR LONG DUARATION. SHE SITS ALL DAY, CAN'T SLEEP IN RECLINER. CAN'T USE AIR MATTRESS. CAN'T MOVE TO CLEAN FROM ATAXIA. ULCERS CAN NEVER HEAL IN SUCH SITUATION. TALKED TO DR. ELIZONDO HE WILL DO EVAL UNDER ANDESTHESIA Qualifiers: Pressure injury stage: stage 3 Qualified Code(s): L89.103 - Pressure ulcer of unspecified part of back, stage 3
[2020-05-16] MEDS ORDERED: METOPROLOL TARTRATE 5 MG/5 ML INJ IV SCH (17:00)
[2020-05-16] MEDS ORDERED: Mastisol Adhesive Liq ONE (18:41)
--- NOTE | 2020-05-16 18:42 | P.OP ---
Preoperative diagnosis: Sacral decubitus Postoperative diagnosis: The same Primary procedure: Debridement of sacral decubitus Secondary procedure: Hemorrhoidectomy Anesthesia: General Estimated blood loss: Less than 10 cc Specimen: No specimens were sent Operative Technique: The patient is transferred from the ICU to the OR. She was then transported onto the OR table in the prone position. After the induction of adequate general anesthesia, the area was the sacral wound was prepped with a Betadine solution and she was draped in usual aseptic manner. Attention was turned towards is midline sacral wound. We could see that there was full-thickness skin loss in the midline. This portion was gently debrided using the electro cautery. We removed approximately 4 cm x 2 cm of skin in the midline. The skin was detached off of the subcutaneous tissue. This now lateral to this area there was partial skin loss. We were able to debride this by using a surgical curette. There was concern that there was muscle compromise, and after going down through clean viable fatty tissue to the fascia covering of the ports, I did not feel or see any evidence of any necrosis. Attention was turned back towards our wound. Adequate hemostasis was assured using electro cautery. We could see that the patient had a large chronic hemorrhoid that did enlarged into a chronic skin tag. This interfere with her ability to obtain a good seal to OR wound VAC. As well as out for the long-term this would aid and her care and hygiene and she has lost a console and mobility intense totally dependent on others for her toilet care. A Balll hemorrhoidectomy was done. A hemostat was placed across the base of this hemorrhoid. It was then close. A whipstitch was placed underneath it after the hemorrhoid had been removed. Adequate hemostasis had been ensured, we turned our attention back to the wound VAC. Wound VAC, after having placed a barrier around all the skin edges the wound VAC was put into the wound. It was then covered in the usual manner applied to suction. We had a very good seal. At this point the patient was transferred back to the ICU bed. At the end of procedure she was stable when transferred back to the ICU. Complications: None (Wound VAC) Transferred to: Recovery Room Condition: Good
[2020-05-16] MEDS: FLUCONAZOLE 400 MG IVPB 400 MG/200 ML BAG IV SCH (22:00)
[2020-05-16] MEDS ORDERED: VANCOMYCIN 1 GM/VIAL ONE ×2 (22:03→22:35)
[2020-05-16] MEDS ORDERED: Meropenem 1 GM/100 ML BAG ONE (22:04)
[2020-05-16] MEDS ORDERED: NA CHLORIDE 0.9% 500 ML ONE (22:35)
[2020-05-16] MEDS ORDERED: FLUCONAZOLE IV ONE (23:10)
[2020-05-17] MEDS: Meropenem 1,000 MG in NA CHLORIDE 0.9% 100 ML IV SCH ×3 (01:00→17:01)
[2020-05-17] MEDS: Ringers Lactate 1,000 ML IV SCH ×3 (04:13→17:01)
[2020-05-17] MEDS: METOPROLOL TARTRATE 5 MG/5 ML INJ IV SCH ×4 (04:14→20:04)
[2020-05-17] MEDS ORDERED: Ringers Lactate 1,000 ML IV ONE ×2 (04:23→17:14)
[2020-05-17] MEDS ORDERED: METOPROLOL TARTRATE 5 MG/5 ML INJ IV ONE ×4 (04:23→20:16)
[2020-05-17] MEDS ORDERED: propofoL 1,000 MG/100 ML VIAL IV ONE ×3 (04:23→15:55)
[2020-05-17 05:19] LABS: Absolute Lymphocytes (CBC) 1.5 K/uL (0.7-4.9); Basophils % 0.7 % (0-1.3); Hematocrit 27.7 % (36.0-45.0); Lymphocytes % 16.2 % (15.3-44.8); MPV 8.5 fL (7.6-11.3); RBC Red Blood Cell Count 3.03 M/uL (3.86-4.86)
[2020-05-17 05:52] LABS: BUN Blood Urea Nitrogen 5 mg/dL (7-18); Bicarbonate 31 mmol/L (21-32); Creatine Phosphokinase 495 U/L (26-192); Glucose Level 117 mg/dL (74-106); Magnesium 2.1 mg/dL (1.8-2.4); Sodium Level 144 mmol/L (136-145)
[2020-05-17 05:56] LABS: Potassium 2.8 mmol/L (3.5-5.1)
[2020-05-17] MEDS: INSULIN -REGULAR HUMAN 50 UNIT/0.5 ML ML SQ SCH ×4 (06:00→18:00)
[2020-05-17] MEDS ORDERED: KCL 20 MEQ/100 mL IVPB 20 MEQ/100 ML BAG IV ONE ×4 (06:14→19:32)
[2020-05-17] MEDS: KCL 20 MEQ/100 mL IVPB 20 MEQ/100 ML BAG IV SCH ×4 (06:21→19:36)
[2020-05-17] MEDS ORDERED: ENOXAPARIN 40 MG/0.4 ML SQ ONE (08:50)
[2020-05-17] MEDS ORDERED: FAMOTIDINE 20 MG/2 ML VIAL IV ONE ×2 (08:50→20:16)
[2020-05-17] MEDS: ENOXAPARIN 40 MG/0.4 ML SQ SCH (08:52)
[2020-05-17] MEDS: FAMOTIDINE 20 MG/2 ML VIAL IV SCH ×2 (08:52→20:05)
[2020-05-17] MEDS: COLLAGENASE 30 GM OINTMENT TOP SCH (08:54)
[2020-05-17] MEDS ORDERED: Meropenem 1 GM/100 ML BAG ONE (08:55)
[2020-05-17] MEDS: FLUCONAZOLE 400 MG IVPB 400 MG/200 ML BAG IV SCH (09:37)
[2020-05-17] MEDS: FENTANYL CITR 100 MCG/2 ML IV PRN (09:37)
[2020-05-17] MEDS: VANCOMYCIN 2 GM in NA CHLORIDE 0.9% 500 ML IVPB SCH ×2 (09:37→21:06)
[2020-05-17] MEDS ORDERED: FENTANYL CITR 100 MCG/2 ML ONE (09:39)
--- NOTE | 2020-05-17 09:52 | P.PN ---
Subjective Date of Service: 05/17/20 Chief Complaint: Status post incision and drainage Subjective: Improving (Patient is improving although she will feel the weaning trial today mild fever hemodynamically stable) Review of Systems is unable to be obtained Physical Examination - Vital Signs Temperature: 100.4 F Blood Pressure: 136/74 Pulse: 92 Respirations: 16 Pulse Ox (%): 98 - Physical Exam General: Alert Respiratory: Clear to auscultation bilaterally, Diminished Cardiovascular: No edema, Regular rate/rhythm - Studies Medications List Reviewed: Yes Assessment & Plan - Problems (Diagnosis) (1) Respiratory failure Current Visit: Yes Status: Acute Plan: Patient admitted with respiratory failure failed weaning trial today will plan to try again tomorrow oxygenation satisfactory requiring minimal oxygen status post incision and drainage of the sacral wound ordered chest x-ray white count is now normal patient is hypokalemic electrolyte replacement consider tube feeds if unable to wean an LTAC Qualifiers: Respiratory failure complication: hypoxia and hypercapnia
[2020-05-17] MEDS ORDERED: POTASSIUM PHOS IN 0.9 % NACL 15 MMOL/250 ML BAG IV ONE (10:00)
--- NOTE | 2020-05-17 14:50 | P.PN ---
Subjective Date of Service: 05/17/20 Chief Complaint: Status post incision and drainage HER LEVOPHED HAS BEEN TAPERED OFF, SHE IS STILL ON VENT RESPONDING WELL. CLINICALLY SHE HAS IMPROVED. BP IS STABLE AND HIGH NOW. I TALKED TO AND DISCUSSED WITH HIM YEST. ABOUT THE SAME WAKES UP BUT NOT ABLE TO SUSTAIN EXTUBATION YET. Review of Systems is unable to be obtained Physical Examination - Vital Signs Temperature: 98.3 F Blood Pressure: 120/65 Pulse: 81 Respirations: 16 Pulse Ox (%): 93 - Physical Exam General: Moderate distress, Obese, Other (INTUBATED, SEDATED.) Respiratory: Diminished Cardiovascular: Normal S1 S2, No gallops Gastrointestinal: Normal bowel sounds - Studies Medications List Reviewed: Yes Assessment And Plan - Current Problems (Diagnosis) (1) Septic shock Current Visit: Yes Status: Acute Plan: I CHANGED FROM LEVAQUIN TO MERREM. ADDED VANCOMYCIN AND DIFLUCAN SHE WAS HAVING FEVER DEPSITE BEING ON MERREM AND VANCOMYIN. HER WBC IS HIGHER. SHE IS NOT IMPROVING. HER BP HAS DROPPED AND IS ON LEVOPHED DRIP OFF LEVOPHED IV FLUIDS CONTINUED. CONT ABX. SHE IS OFF HER LEVOPHED CULTURES NOT GROWING MUCH SO FAR. (2) Pneumonia Current Visit: Yes Status: Acute Plan: ABOVE. WILL STOP DIFLUCAN AND VANCOMYCIN. MERREM MAY SUFFICE. LTAC MAY BE NEEDED. (3) Uncontrolled diabetes mellitus Current Visit: Yes Status: Chronic Plan: DIET IS POOR ON INSULIN BUT NOT ABLE TO TITRATE AT HOME. 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 THIS IS A RARE DISORDER AND IS THE MAIN REASON FOR HER MEDICAL DECLINE. (6) Rhabdomyolysis Current Visit: Yes Status: Acute Plan: IV WITH BICARB. (7) Pressure ulcer of back Current Visit: Yes Status: Acute Plan: MULTIPLE ULCERS FOR LONG DUARATION. SHE SITS ALL DAY, CAN'T SLEEP IN RECLINER. CAN'T USE AIR MATTRESS. CAN'T MOVE TO CLEAN FROM [place]AXIA. ULCERS CAN NEVER HEAL IN SUCH SITUATION. TALKED TO DR. ELIZONDO HE WILL DO EVAL UNDER ANDESTHESIA Qualifiers: Pressure injury stage: stage 3 Qualified Code(s): L89.103 - Pressure ulcer of unspecified part of back, stage 3
[2020-05-17] MEDS: propofoL 1,000 MG/100 ML VIAL IV PRN (15:55)
[2020-05-18] MEDS ORDERED: propofoL 1,000 MG/100 ML VIAL IV ONE ×2 (00:17→05:45)
[2020-05-18] MEDS: propofoL 1,000 MG/100 ML VIAL IV PRN ×2 (00:49→05:35)
[2020-05-18] MEDS: Meropenem 1,000 MG in NA CHLORIDE 0.9% 100 ML IV SCH ×3 (00:49→17:08)
[2020-05-18] MEDS: METOPROLOL TARTRATE 5 MG/5 ML INJ IV SCH ×4 (03:31→21:00)
[2020-05-18] MEDS ORDERED: METOPROLOL TARTRATE 5 MG/5 ML INJ IV ONE ×4 (03:40→21:21)
[2020-05-18 05:19] LABS: Absolute Lymphocytes (CBC) 1.7 K/uL (0.7-4.9); Basophils % 0.4 % (0-1.3); Lymphocytes % 20.1 % (15.3-44.8); MPV 8.1 fL (7.6-11.3); RBC Red Blood Cell Count 3.04 M/uL (3.86-4.86)
[2020-05-18] MEDS: Ringers Lactate 1,000 ML IV SCH ×3 (05:35→21:28)
[2020-05-18] MEDS: INSULIN -REGULAR HUMAN 50 UNIT/0.5 ML ML SQ SCH ×5 (05:37→23:47)
[2020-05-18] MEDS ORDERED: Ringers Lactate 1,000 ML IV ONE ×2 (05:45→21:21)
[2020-05-18 05:52] LABS: BUN Blood Urea Nitrogen 6 mg/dL (7-18); Bicarbonate 28 mmol/L (21-32); Creatine Phosphokinase 335 U/L (26-192); Glucose Level 95 mg/dL (74-106); Magnesium 2.1 mg/dL (1.8-2.4); Phosphorus 2.9 mg/dL (2.5-4.9); Sodium Level 147 mmol/L (136-145)
[2020-05-18] MEDS: KCL 20 MEQ/100 mL IVPB 20 MEQ/100 ML BAG IV SCH ×4 (06:27→23:08)
[2020-05-18] MEDS ORDERED: KCL 20 MEQ/100 mL IVPB 20 MEQ/100 ML BAG IV ONE ×2 (06:38→08:19)
[2020-05-18] MEDS: ENOXAPARIN 40 MG/0.4 ML SQ SCH (08:12)
[2020-05-18] MEDS: FAMOTIDINE 20 MG/2 ML VIAL IV SCH ×2 (08:13→19:58)
[2020-05-18] MEDS: COLLAGENASE 30 GM OINTMENT TOP SCH (08:14)
[2020-05-18] MEDS ORDERED: ENOXAPARIN 40 MG/0.4 ML SQ ONE (08:19)
[2020-05-18] MEDS ORDERED: FAMOTIDINE 20 MG/2 ML VIAL IV ONE ×2 (08:19→19:58)
[2020-05-18] MEDS: VANCOMYCIN 2 GM in NA CHLORIDE 0.9% 500 ML IVPB SCH ×2 (08:58→19:59)
--- NOTE | 2020-05-18 13:08 | P.PN ---
Subjective Date of Service: 05/18/20 Chief Complaint: EXTUBATED TODAY Subjective: Improving HER LEVOPHED HAS BEEN TAPERED OFF, SHE IS STILL ON VENT RESPONDING WELL. CLINICALLY SHE HAS IMPROVED. BP IS STABLE AND HIGH NOW. I TALKED TO AND DISCUSSED WITH HIM YEST. ABOUT THE SAME WAKES UP BUT NOT ABLE TO SUSTAIN EXTUBATION YET. SHE IS ABLE TO WAKE UP BUT NOT ABLE TO SWALLOW WATER WELL. SHEIS EXTUBATED THIS AM. Review of Systems is unable to be obtained Physical Examination - Vital Signs Temperature: 98.9 F Blood Pressure: 152/74 Pulse: 84 Respirations: 17 Pulse Ox (%): 95 - Physical Exam General: Moderate distress, Obese HEENT: Atraumatic, PERRLA, EOMI Neck: Supple, JVD not distended Respiratory: Clear to auscultation bilaterally, Normal air movement Cardiovascular: Regular rate/rhythm, Normal S1 S2 Gastrointestinal: Normal bowel sounds, No tenderness Musculoskeletal: No tenderness Integumentary: No rashes Neurological: Normal speech, Normal tone, Normal affect Lymphatics: No axilla or inguinal lymphadenopathy - Studies Medications List Reviewed: Yes Assessment And Plan - Current Problems (Diagnosis) (1) Septic shock Current Visit: Yes Status: Acute Plan: I CHANGED FROM LEVAQUIN TO MERREM. ADDED VANCOMYCIN AND DIFLUCAN SHE WAS HAVING FEVER DEPSITE BEING ON MERREM AND VANCOMYIN. HER WBC IS HIGHER. SHE IS NOT IMPROVING. HER BP HAS DROPPED AND IS ON LEVOPHED DRIP OFF LEVOPHED IV FLUIDS CONTINUED. CONT ABX. SHE IS OFF HER LEVOPHED CULTURES NOT GROWING MUCH SO FAR. (2) Pneumonia Current Visit: Yes Status: Acute Plan: ABOVE. WILL STOP DIFLUCAN AND VANCOMYCIN. MERREM MAY SUFFICE. LTAC MAY BE NEEDED. EXTUBATED DOING WELL SO FAR. (3) Uncontrolled diabetes mellitus Current Visit: Yes Status: Chronic Plan: DIET IS POOR ON INSULIN BUT NOT ABLE TO TITRATE AT HOME. 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 THIS IS A RARE DISORDER AND IS THE MAIN REASON FOR HER MEDICAL DECLINE. (6) Rhabdomyolysis Current Visit: Yes Status: Acute Plan: IV WITH BICARB. (7) Pressure ulcer of back Current Visit: Yes Status: Acute Plan: MULTIPLE ULCERS FOR LONG DUARATION. SHE SITS ALL DAY, CAN'T SLEEP IN RECLINER. CAN'T USE AIR MATTRESS. CAN'T MOVE TO CLEAN FROM [place]AXIA. ULCERS CAN NEVER HEAL IN SUCH SITUATION. TALKED TO DR. ELIZONDO HE WILL DO EVAL UNDER ANDESTHESIA Qualifiers: Pressure injury stage: stage 3 Qualified Code(s): L89.103 - Pressure ulcer of unspecified part of back, stage 3
[2020-05-18] MEDS: FENTANYL CITR 100 MCG/2 ML IV PRN ×2 (14:55→21:27)
[2020-05-18] MEDS ORDERED: FENTANYL CITR 100 MCG/2 ML ONE ×3 (15:02→21:21)
--- NOTE | 2020-05-18 20:28 | P.PN ---
Subjective Date of Service: 05/18/20 Chief Complaint: Respiratory failure Subjective: Improving (Patient is improving doing well was extubated no new complaints) Review of Systems is unable to be obtained Physical Examination - Vital Signs Temperature: 97.1 F Blood Pressure: 151/66 Pulse: 79 Respirations: 27 Pulse Ox (%): 93 - Physical Exam General: Alert, Cooperative Respiratory: Clear to auscultation bilaterally Cardiovascular: No edema, Regular rate/rhythm - Studies Microbiology Data (last 24 hrs): 05/13/20 16:22 Blood - Blood Aerobic Blood Culture - Final No growth in 5 days. 05/13/20 16:22 Blood - Blood Anaerobic Blood Culture - Final No growth in 5 days. 05/13/20 16:10 Blood - Blood Aerobic Blood Culture - Final No growth in 5 days. 05/13/20 16:10 Blood - Blood Anaerobic Blood Culture - Final No growth in 5 days. Medications List Reviewed: Yes Assessment & Plan - Problems (Diagnosis) (1) Respiratory failure Current Visit: Yes Status: Acute Plan: Patient did well was extubated today white count is now normal can Dc vancomycin change to p.o. doxycycline hemodynamically stable oxygenation satisfactory status post a bride meant of the decubitus ulcer cultures are all negative consider combination of p.o. Levaquin and doxycycline for a couple of weeks rodriguez virus negative Qualifiers: Respiratory failure complication: hypoxia and hypercapnia
[2020-05-18] MEDS ORDERED: KCL 20 MEQ/100 mL IVPB 40 MEQ/200 ML BAG IV ONE (21:22)
[2020-05-19] MEDS: Meropenem 1,000 MG in NA CHLORIDE 0.9% 100 ML IV SCH ×3 (00:49→17:37)
[2020-05-19] MEDS: METOPROLOL TARTRATE 5 MG/5 ML INJ IV SCH ×4 (03:05→22:01)
[2020-05-19] MEDS ORDERED: METOPROLOL TARTRATE 5 MG/5 ML INJ IV ONE ×4 (03:18→22:13)
[2020-05-19] MEDS: INSULIN -REGULAR HUMAN 50 UNIT/0.5 ML ML SQ SCH ×3 (05:29→17:37)
[2020-05-19 05:48] LABS: Absolute Lymphocytes (CBC) 1.3 K/uL (0.7-4.9); Basophils % 0.7 % (0-1.3); Hematocrit 29.2 % (36.0-45.0); Lymphocytes % 13.2 % (15.3-44.8); MPV 8.5 fL (7.6-11.3); RBC Red Blood Cell Count 3.16 M/uL (3.86-4.86)
[2020-05-19 05:54] LABS: BUN Blood Urea Nitrogen 7 mg/dL (7-18); Bicarbonate 30 mmol/L (21-32); Glucose Level 96 mg/dL (74-106); Potassium 3.7 mmol/L (3.5-5.1); Sodium Level 145 mmol/L (136-145)
[2020-05-19] MEDS ORDERED: ALBUTEROL 2.5 MG/3 ML NEB SOL ONE (07:50)
[2020-05-19] MEDS ORDERED: propofoL 1,000 MG/100 ML VIAL IV ONE ×3 (08:49→22:45)
[2020-05-19] MEDS ORDERED: POTASSIUM 25 MEQ EFFERV TAB PO ONE (09:00)
[2020-05-19] MEDS: COLLAGENASE 30 GM OINTMENT TOP SCH (09:00)
[2020-05-19] MEDS ORDERED: Ringers Lactate 1,000 ML IV ONE ×2 (09:02→16:49)
[2020-05-19 09:45] LABS: Arterial Blood Carboxyhemoglob 1.9 % (0-1.5); Blood Gas Oxyhemoglobin 82.3 % (94-97); Blood O2 Saturation 84.7 % (92-98.5)
[2020-05-19] MEDS ORDERED: RSI MEDICATION KIT IV ONE (09:55)
--- NOTE | 2020-05-19 10:09 | RAD REPORT ---
EXAM DESCRIPTION: Geno Single View05/19/2020 9:58 am CLINICAL HISTORY: Shortness of breath COMPARISON: May 18, 2020 FINDINGS: Endotracheal tube has its tip well above the homar. Nasogastric tube is present within th e stomach No significant change in a left lower lobe consolidation. Mild worsening in the mild to moderate right lung opacities Heart remains enlarged IMPRESSION: No significant change in a left lower lobe consolidation Mild worsening in mild to moderate right lung opacities This probably represents pneumonia
[2020-05-19] MEDS: Ringers Lactate 1,000 ML IV SCH ×2 (10:43→16:37)
[2020-05-19] MEDS: ENOXAPARIN 40 MG/0.4 ML SQ SCH (10:45)
[2020-05-19] MEDS: VANCOMYCIN 2 GM in NA CHLORIDE 0.9% 500 ML IVPB SCH ×2 (10:48→22:12)
[2020-05-19] MEDS: FAMOTIDINE 20 MG/2 ML VIAL IV SCH ×2 (10:48→22:02)
[2020-05-19] MEDS ORDERED: ENOXAPARIN 40 MG/0.4 ML SQ ONE (10:56)
[2020-05-19] MEDS ORDERED: POTASSIUM 25 MEQ EFFERV TAB ONE (10:56)
[2020-05-19] MEDS ORDERED: FAMOTIDINE 20 MG/2 ML VIAL IV ONE ×2 (11:01→22:13)
--- NOTE | 2020-05-19 11:24 | RAD REPORT ---
EXAM DESCRIPTION: Chest Single View CLINICAL HISTORY: Endotracheal Tube, PICC line COMPARISON: Chest 1 view 05/14/2020 TECHNIQUE: Chest 1 view AP portable FINDINGS: Patient is moderately rightward rotated making evaluation more difficult. Heart size appears mildly enlarged and may be partly due to portable AP technique, supine position, a nd rightward rotated position. Mild nearly diffuse left hemithoracic haziness. Moderate dense bilateral lower lung/chest opacities. No pneumothorax. ETT and NGT remain in place. Right arm PICC tip overlies SVC/RA junction. IMPRESSION: 1. Mild nearly diffuse left hemithoracic haziness. Moderate dense bilateral lower lung/chest opacities. Right lung appears worse and left lung appears improved from 05/14/2020. 2. ETT, NGT, and right arm PICC in place. 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 The interpreting r adiologist is fully responsible for the content of the report.
[2020-05-19] MEDS ORDERED: SUCCINYLCHOLINE 20 MG/ML (10 ML) IV ONE (11:42)
[2020-05-19] MEDS ORDERED: ETOMIDATE 20 MG/10 ML VIAL IV ONE (11:44)
--- NOTE | 2020-05-19 18:20 | P.PN ---
Subjective Date of Service: 05/19/20 Chief Complaint: Respiratory failure HER LEVOPHED HAS BEEN TAPERED OFF, SHE IS STILL ON VENT RESPONDING WELL. CLINICALLY SHE HAS IMPROVED. BP IS STABLE AND HIGH NOW. I TALKED TO AND DISCUSSED WITH HIM YEST. ABOUT THE SAME WAKES UP BUT NOT ABLE TO SUSTAIN EXTUBATION YET. SHE IS ABLE TO WAKE UP BUT NOT ABLE TO SWALLOW WATER WELL. SHEIS EXTUBATED THIS AM. FAILED EXTUBATION. SHE HAD TO BE REINTUBATED FAMILY HAS NOT DECIDED ON DNR STATUS. TALKED TO AND OTHER MEMBERS TWICE. Physical Examination - Vital Signs Temperature: 97.6 F Blood Pressure: 133/67 Pulse: 73 Respirations: 15 Pulse Ox (%): 99 - Physical Exam General: Severe distress Respiratory: Diminished Cardiovascular: Normal S1 S2 - Studies Microbiology Data (last 24 hrs): 05/13/20 16:22 Blood - Blood Aerobic Blood Culture - Final No growth in 5 days. 05/13/20 16:22 Blood - Blood Anaerobic Blood Culture - Final No growth in 5 days. 05/13/20 16:10 Blood - Blood Aerobic Blood Culture - Final No growth in 5 days. 05/13/20 16:10 Blood - Blood Anaerobic Blood Culture - Final No growth in 5 days. Medications List Reviewed: Yes Assessment And Plan - Current Problems (Diagnosis) (1) Septic shock Current Visit: Yes Status: Acute Plan: I CHANGED FROM LEVAQUIN TO MERREM. ADDED VANCOMYCIN AND DIFLUCAN SHE WAS HAVING FEVER DEPSITE BEING ON MERREM AND VANCOMYIN. HER WBC IS HIGHER. SHE IS NOT IMPROVING. HER BP HAS DROPPED AND IS ON LEVOPHED DRIP OFF LEVOPHED IV FLUIDS CONTINUED. CONT ABX. SHE IS OFF HER LEVOPHED CULTURES NOT GROWING MUCH SO FAR. (2) Pneumonia Current Visit: Yes Status: Acute Plan: ABOVE. WILL STOP DIFLUCAN AND VANCOMYCIN. MERREM MAY SUFFICE. LTAC MAY BE NEEDED. EXTUBATED DOING WELL SO FAR. (3) Uncontrolled diabetes mellitus Current Visit: Yes Status: Chronic Plan: DIET IS POOR ON INSULIN BUT NOT ABLE TO TITRATE AT HOME. 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 THIS IS A RARE DISORDER AND IS THE MAIN REASON FOR HER MEDICAL DECLINE. (6) Rhabdomyolysis Current Visit: Yes Status: Acute Plan: IV WITH BICARB. (7) Pressure ulcer of back Current Visit: Yes Status: Acute Plan: MULTIPLE ULCERS FOR LONG DUARATION. SHE SITS ALL DAY, CAN'T SLEEP IN RECLINER. CAN'T USE AIR MATTRESS. CAN'T MOVE TO CLEAN FROM ATAXIA. ULCERS CAN NEVER HEAL IN SUCH SITUATION. TALKED TO DR. ELIZONDO HE WILL DO EVAL UNDER ANDESTHESIA Qualifiers: Pressure injury stage: stage 3 Qualified Code(s): L89.103 - Pressure ulcer of unspecified part of back, stage 3 (8) Respiratory failure Current Visit: Yes Status: Acute Plan: VENTILATOR DEPENDENT. FAILED EXTUBATION IN A DAY. SHOULD BE DNR HER QUALITY OF LIFE IS POOR AND SHE WILL NOT RECOVER OUT OF MISERY. SHE WILL FAIL AGAIN. HER STATUS BEFORE ALL THESE WAS BED BOUND AND COULD NOT WALK, HAD BED SORES, ATE POORLY, IS OBESE AND UNOCONTROLLED DM. SHE DOES NOT HAVE ENOUGH HELP AT HOME AND SHE CAN'T AFFORD NH. Qualifiers: Respiratory failure complication: hypoxia and hypercapnia
[2020-05-19] MEDS: propofoL 1,000 MG/100 ML VIAL IV PRN (23:27)
[2020-05-20] MEDS: Meropenem 1,000 MG in NA CHLORIDE 0.9% 100 ML IV SCH ×3 (00:58→16:52)
[2020-05-20] MEDS: Ringers Lactate 1,000 ML IV SCH ×2 (03:00→13:21)
[2020-05-20] MEDS ORDERED: METOPROLOL TARTRATE 5 MG/5 ML INJ IV ONE ×4 (03:19→21:52)
[2020-05-20] MEDS ORDERED: Ringers Lactate 1,000 ML IV ONE ×2 (03:19→13:33)
[2020-05-20] MEDS: METOPROLOL TARTRATE 5 MG/5 ML INJ IV SCH ×4 (03:37→21:41)
[2020-05-20] MEDS ORDERED: propofoL 1,000 MG/100 ML VIAL IV ONE ×4 (03:40→18:53)
[2020-05-20 05:59] LABS: BUN Blood Urea Nitrogen 6 mg/dL (7-18); Bicarbonate 30 mmol/L (21-32); Glucose Level 83 mg/dL (74-106); Potassium 3.2 mmol/L (3.5-5.1); Sodium Level 147 mmol/L (136-145)
[2020-05-20] MEDS: INSULIN -REGULAR HUMAN 50 UNIT/0.5 ML ML SQ SCH ×4 (06:00→17:52)
[2020-05-20] MEDS: KCL 20 MEQ/100 mL IVPB 20 MEQ/100 ML BAG IV SCH ×2 (07:48→09:12)
[2020-05-20] MEDS: ENOXAPARIN 40 MG/0.4 ML SQ SCH (07:49)
[2020-05-20] MEDS: FAMOTIDINE 20 MG/2 ML VIAL IV SCH ×2 (07:49→21:41)
[2020-05-20] MEDS ORDERED: ENOXAPARIN 40 MG/0.4 ML SQ ONE (07:59)
[2020-05-20] MEDS ORDERED: FAMOTIDINE 20 MG/2 ML VIAL IV ONE ×2 (07:59→21:52)
[2020-05-20] MEDS ORDERED: KCL 20 MEQ/100 mL IVPB 20 MEQ/100 ML BAG IV ONE (07:59)
[2020-05-20] MEDS: VANCOMYCIN 2 GM in NA CHLORIDE 0.9% 500 ML IVPB SCH ×2 (09:12→21:42)
[2020-05-20] MEDS ORDERED: VITAL AF 1,000 ML BOT FT SCH (11:00)
[2020-05-20] MEDS: VITAL AF 1,000 ML BOT FT SCH (13:00)
[2020-05-20] MEDS: COLLAGENASE 30 GM OINTMENT TOP SCH (13:05)
[2020-05-20] MEDS: propofoL 1,000 MG/100 ML VIAL IV PRN ×2 (13:21→18:47)
--- NOTE | 2020-05-20 15:29 | P.PN ---
Date of Service: 05/20/20 S: The specific complaints per the nurse's report O: Wound was taken down, appears to be improved. Wound VAC was changed. A: Sacral wound is stable P: Continue wound care.
--- NOTE | 2020-05-20 20:59 | P.PN ---
Subjective Date of Service: 05/20/20 Chief Complaint: Respiratory failure Subjective: No new changes HER LEVOPHED HAS BEEN TAPERED OFF, SHE IS STILL ON VENT RESPONDING WELL. CLINICALLY SHE HAS IMPROVED. BP IS STABLE AND HIGH NOW. I TALKED TO AND DISCUSSED WITH HIM YEST. ABOUT THE SAME WAKES UP BUT NOT ABLE TO SUSTAIN EXTUBATION YET. SHE IS ABLE TO WAKE UP BUT NOT ABLE TO SWALLOW WATER WELL. SHEIS EXTUBATED THIS AM. FAILED EXTUBATION. SHE HAD TO BE REINTUBATED FAMILY HAS NOT DECIDED ON DNR STATUS. TALKED TO AND OTHER MEMBERS TWICE. HER EXTUBATION FAILED AND WAS REINTUBATED YESTERDAY. TODAY SHE IS AWAKE AND INTUABATED. MOTHER AT BEDSIDE. SHE IS QUITE UPSET ABOUT INUTBATION. SHE SAYS SANGITA HAS NO QUALITY OF LIFE. SHE LAYS ALL DAY IN HER SAME CHAIR AND CAN'T BE EVEN CLEANED ON TIME SHE CAN'T MOVE. Physical Examination - Vital Signs Temperature: 97.2 F Blood Pressure: 138/71 Pulse: 75 Respirations: 14 Pulse Ox (%): 97 - Physical Exam General: Moderate distress, Obese HEENT: Atraumatic, PERRLA, EOMI Neck: Supple, JVD not distended Respiratory: Clear to auscultation bilaterally, Normal air movement Cardiovascular: Regular rate/rhythm, Normal S1 S2 Gastrointestinal: Normal bowel sounds, No tenderness Musculoskeletal: No tenderness Integumentary: No rashes Neurological: Normal speech, Normal tone, Normal affect Lymphatics: No axilla or inguinal lymphadenopathy - Studies Medications List Reviewed: Yes Assessment And Plan - Current Problems (Diagnosis) (1) Septic shock Current Visit: Yes Status: Acute Plan: I CHANGED FROM LEVAQUIN TO MERREM. ADDED VANCOMYCIN AND DIFLUCAN SHE WAS HAVING FEVER DEPSITE BEING ON MERREM AND VANCOMYIN. HER WBC IS HIGHER. SHE IS NOT IMPROVING. HER BP HAS DROPPED AND IS ON LEVOPHED DRIP OFF LEVOPHED IV FLUIDS CONTINUED. CONT ABX. SHE IS OFF HER LEVOPHED CULTURES NOT GROWING MUCH SO FAR. (2) Pneumonia Current Visit: Yes Status: Acute Plan: ABOVE. WILL STOP DIFLUCAN AND VANCOMYCIN. MERREM MAY SUFFICE. LTAC MAY BE NEEDED. EXTUBATED DOING WELL SO FAR. (3) Uncontrolled diabetes mellitus Current Visit: Yes Status: Chronic Plan: DIET IS POOR ON INSULIN BUT NOT ABLE TO TITRATE AT HOME. 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 THIS IS A RARE DISORDER AND IS THE MAIN REASON FOR HER MEDICAL DECLINE. (6) Rhabdomyolysis Current Visit: Yes Status: Acute Plan: IV WITH BICARB. (7) Pressure ulcer of back Current Visit: Yes Status: Acute Plan: MULTIPLE ULCERS FOR LONG DUARATION. SHE SITS ALL DAY, CAN'T SLEEP IN RECLINER. CAN'T USE AIR MATTRESS. CAN'T MOVE TO CLEAN FROM ATAXIA. ULCERS CAN NEVER HEAL IN SUCH SITUATION. TALKED TO DR. ELIZONDO HE WILL DO EVAL UNDER ANDESTHESIA Qualifiers: Pressure injury stage: stage 3 Qualified Code(s): L89.103 - Pressure ulcer of unspecified part of back, stage 3 (8) Respiratory failure Current Visit: Yes Status: Acute Plan: VENTILATOR DEPENDENT. FAILED EXTUBATION IN A DAY. SHOULD BE DNR HER QUALITY OF LIFE IS POOR AND SHE WILL NOT RECOVER OUT OF MISERY. SHE WILL FAIL AGAIN. HER STATUS BEFORE ALL THESE WAS BED BOUND AND COULD NOT WALK, HAD BED SORES, ATE POORLY, IS OBESE AND UNOCONTROLLED DM. SHE DOES NOT HAVE ENOUGH HELP AT HOME AND SHE CAN'T AFFORD NH. SHE IS NOT ABLE TO SURVIVE ON HER OWN. FAMILY HAS MADE DECISION. THEY WILL MEET WITH ME IN AM. SHE CAN BE LEFT ON HOSPICE IF THEY DECIDE NOT TO INTUBATE AGAIN. Qualifiers: Respiratory failure complication: hypoxia and hypercapnia
[2020-05-20 21:14] LABS: Potassium 3.2 mmol/L (3.5-5.1)
[2020-05-21] MEDS ORDERED: METOPROLOL TARTRATE 5 MG/5 ML INJ IV ONE ×2 (00:31→08:46)
[2020-05-21] MEDS ORDERED: Ringers Lactate 1,000 ML IV ONE (00:31)
[2020-05-21] MEDS ORDERED: propofoL 1,000 MG/100 ML VIAL IV ONE ×2 (00:32→04:45)
[2020-05-21] MEDS: Ringers Lactate 1,000 ML IV SCH ×2 (02:01→10:00)
[2020-05-21] MEDS: Meropenem 1,000 MG in NA CHLORIDE 0.9% 100 ML IV SCH ×3 (02:02→15:43)
[2020-05-21] MEDS: METOPROLOL TARTRATE 5 MG/5 ML INJ IV SCH ×4 (02:12→14:14)
[2020-05-21] MEDS: KCL 20 MEQ/100 mL IVPB 20 MEQ/100 ML BAG IV SCH ×2 (03:00→04:47)
[2020-05-21] MEDS ORDERED: KCL 20 MEQ/100 mL IVPB 40 MEQ/200 ML BAG IV ONE (03:44)
[2020-05-21] MEDS: propofoL 1,000 MG/100 ML VIAL IV PRN (04:41)
[2020-05-21] MEDS: INSULIN -REGULAR HUMAN 50 UNIT/0.5 ML ML SQ SCH ×4 (04:56→15:43)
[2020-05-21] MEDS: COLLAGENASE 30 GM OINTMENT TOP SCH (07:13)
[2020-05-21] MEDS: ENOXAPARIN 40 MG/0.4 ML SQ SCH ×2 (08:38→09:00)
[2020-05-21] MEDS: FAMOTIDINE 20 MG/2 ML VIAL IV SCH ×2 (08:39→09:00)
[2020-05-21] MEDS ORDERED: FAMOTIDINE 20 MG/2 ML VIAL IV ONE (08:46)
[2020-05-21] MEDS ORDERED: ENOXAPARIN 40 MG/0.4 ML SQ ONE (08:46)
[2020-05-21] MEDS: VANCOMYCIN 2 GM in NA CHLORIDE 0.9% 500 ML IVPB SCH (09:00)
[2020-05-21] MEDS: VITAL AF 1,000 ML BOT FT SCH (09:00)
[2020-05-21] MEDS: FENTANYL CITR 100 MCG/2 ML IV PRN (10:08)
[2020-05-21] MEDS: LORazepam 2 MG/ML VIAL IV PRN (10:08)
[2020-05-21] MEDS ORDERED: FENTANYL CITR 100 MCG/2 ML ONE (10:18)
[2020-05-21] MEDS ORDERED: LORazepam 2 MG/ML VIAL ONE ×3 (10:20→14:05)
[2020-05-21] MEDS ORDERED: SCOPOLAMINE HYDROBROMIDE PATCH TD ONE (11:06)
[2020-05-21] MEDS ORDERED: MORPHINE 2 MG/ML SYR IV ONE ×2 (11:06→14:00)
[2020-05-21] MEDS ORDERED: LORazepam 2 MG/ML VIAL IV ONE ×2 (11:06→14:00)
[2020-05-21 11:12] VITALS: BP 158/79; TEMP 97.9
[2020-05-21 11:30] VITALS: O2SAT 98
[2020-05-21] MEDS ORDERED: MORPHINE 2 MG/ML SYR ONE ×2 (11:36→14:05)
--- NOTE | 2020-05-21 20:56 | P.DS ---
Admission Date: 05/13/20 Discharge Date: 05/21/20 Disposition: HOSPICE-MEDICAL FACILITY Reason for Admission: Respiratory failure - Problems (1) Septic shock Status: Acute (2) Pneumonia Status: Acute (3) Uncontrolled diabetes mellitus Status: Chronic Qualifiers: Diabetes mellitus type: type 2 (4) Elevated troponin Status: Acute (5) Cerebellar ataxia Status: Chronic (6) Rhabdomyolysis Status: Acute (7) Pressure ulcer of back Status: Acute Qualifiers: Pressure injury stage: stage 3 Qualified Code(s): L89.103 - Pressure ulcer of unspecified part of back, stage 3 (8) Respiratory failure Status: Acute Qualifiers: Respiratory failure complication: hypoxia and hypercapnia Brief History of Present Illness: SANGITA IS A PATIENT WITH CEREBELLAR ATAXIA, WHO HAS NOT BEEN ABLE TO WALK FOR MANY YEARS, SHE ALSO HAS DIABETES AND HAS NOT BEEN FOLLOWING DIET. 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 SHE HAS BEDSORES AND I HAVE TRIED TO GET HER AN AIR MATTRESS BUT SHE NEVER GETS OFF RECLINER. MEDICINES WILL NOT WORK IF SHE CAN'T OFF LOAD HER ULCERS. I HAD A LONG TALK WITH HER ABOUT HER DIET AND MEDICINES FOR DIABETES AT HER VISITS BUT WAS NO BENEFIT. SHE ENDS UP IN HOSPITAL WITH DYSPNEA, FOUND TO HAVE LARGE PNEUMONIA RUQ AND R SIDE LOWER LOBE ATELECTASIS. SHE IS INTUBATED OVERNIGHT AND KEPT IN ICU. WE DON'T HAVE HER 'S NUMBER TO CONTACT. HER COVID TEST IS NEGATIVE. Hospital Course: AFTER A LONG DISCUSSION WITH FAMILY AND PATIENT VIA NURSE, PATIENT DECIDED TO BE EXTUBATED. SHE DOES NOT WANT TRACHEOSTOMY, LIVE IN A FACILITY. ALSO DOES NOT WANT MORE SUFFERING FOR HER. SHE WAS EXTUBATED AND MOVED TO HOSPICE CARE PER HER WISH. Vital Signs/Physical Exam: Temp Pulse Resp BP Pulse Ox 97.9 F 84 42 H 158/79 H 72 L 05/21/20 11:00 05/21/20 11:00 05/21/20 14:14 05/21/20 11:00 05/21/20 14:14 Laboratory Data at Discharge: WBC 10.1 K/uL (4.3-10.9) D 05/19/20 05:00 Hgb 9.9 g/dL (12.0-15.0) L 05/19/20 05:00 Hct 29.2 % (36.0-45.0) L 05/19/20 05:00 Plt Count 193 K/uL (152-406) D 05/19/20 05:00 PT 16.2 SECONDS (9.5-12.5) H 05/13/20 16:10 INR 1.38 05/13/20 16:10 APTT 25.8 SECONDS (24.3-36.9) 05/13/20 16:10 Sodium 147 mmol/L (136-145) H 05/20/20 05:10 Potassium Cancelled 05/21/20 10:00 BUN 6 mg/dL (7-18) L 05/20/20 05:10 Creatinine 0.44 mg/dL (0.55-1.3) L 05/20/20 05:10 Glucose 83 mg/dL (74-106) 05/20/20 05:10 Phosphorus 2.9 mg/dL (2.5-4.9) 05/18/20 04:56 Magnesium 2.1 mg/dL (1.8-2.4) 05/18/20 04:56 Total Bilirubin 0.8 mg/dL (0.2-1.0) 05/16/20 04:21 AST 102 U/L (15-37) H D 05/16/20 04:21 ALT 123 U/L (12-78) H 05/16/20 04:21 Alkaline Phosphatase 61 U/L (45-117) 05/16/20 04:21 Troponin I 35.20 ng/mL (0.0-0.045) H* 05/14/20 04:30 Triglycerides 151 mg/dL (<150) H 05/14/20 04:30 Cholesterol 126 mg/dL (<200) 05/14/20 04:30 HDL Cholesterol 28 mg/dL (40-60) L 05/14/20 04:30 Cholesterol/HDL Ratio 4.50 05/14/20 04:30 Home Medications: Duloxetine HCl 60 mg PO DAILY 08/15/19 Atorvastatin Calcium [Lipitor] 40 mg PO BEDTIME 05/15/20 Carbidopa/Levodopa [Carbidopa-Levo 25-100 mg Odt] 2 each PO TID 05/15/20 Ergocalciferol (Vitamin D2) [Vitamin D 50,000 Unit Cap] 50,000 unit PO EVERY 7TH DAY 05/15/20 Levothyroxine [Synthroid] 50 mcg PO [id number] 05/15/20 Metformin ER [Glucophage ER*] 1,000 mg PO BID 05/15/20 Followup: Unknown,U [Primary Care Provider] -
== END 2020-05-21 16:14 | disposition hospice, inpatient (51) | DRG 853 ==
LOC: ER 15:59 → ERHOLD 19:17
PROVIDERS: ADMIT Internal Medicine; ATTEND Internal Medicine
PROC: 5A1955Z Respiratory Ventilation, Greater than 96 Consecutive Hours (ICD-10-PCS; 2020-05-14)
PROC: 0BH17EZ Insertion of Endotracheal Airway into Trachea, Via Natural or Artificial Opening (ICD-10-PCS; 2020-05-14)
PROC: 06BY0ZC Excision of Hemorrhoidal Plexus, Open Approach (ICD-10-PCS; 2020-05-16)
PROC: 0JB70ZZ Excision of Back Subcutaneous Tissue and Fascia, Open Approach (ICD-10-PCS; principal; 2020-05-16 16:00)
PROC: 02HV33Z Insertion of Infusion Device into Superior Vena Cava, Percutaneous Approach (ICD-10-PCS; 2020-05-18)
DX: A41.52 Sepsis due to Pseudomonas (principal); L89.103 Pressure ulcer of unspecified part of back, stage 3; J96.01 Acute respiratory failure with hypoxia; J96.02 Acute respiratory failure with hypercapnia; J18.9 Pneumonia, unspecified organism; R65.21 Severe sepsis with septic shock; G11.9 Hereditary ataxia, unspecified; M62.82 Rhabdomyolysis; E11.9 Type 2 diabetes mellitus without complications; E87.6 Hypokalemia; I10 Essential (primary) hypertension; L89.159 Pressure ulcer of sacral region, unspecified stage; F17.200 Nicotine dependence, unspecified, uncomplicated; E66.9 Obesity, unspecified; S30.0XXA Contusion of lower back and pelvis, initial encounter; R77.8 Other specified abnormalities of plasma proteins; Z68.34 Body mass index [BMI] 34.0-34.9, adult; Z98.51 Tubal ligation status; Z90.49 Acquired absence of other specified parts of digestive tract; Z79.84 Long term (current) use of oral hypoglycemic drugs; Z79.890 Hormone replacement therapy; Z79.899 Other long term (current) drug therapy; Z91.11 Patient's noncompliance with dietary regimen; Z20.828 Contact with and (suspected) exposure to other viral communicable diseases
CPT/HCPCS: 36415; 36569; 51702; 71045; 71275; 80048; 80053; 80061; 80202; 82550; 82553; 82805; 82947; 83605; 83735; 83880; 84100; 84132; 84145; 84484; 85025; 85379; 85610; 85730; 87040; 87070; 87205; 87804; 88302; 88304; 93005; 93306; 94002; 94003; 94640; 94660; 94760; 96361; 96365; 96372; 96375; 99285; J0330; J0696; J1450; J1650; J1940; J2185; J2250; J2270; J2704; J3010; J3370; J3475; J3480; J3590; J7030; J7040; J7060; J7120; Q9967; U0003

== ENCOUNTER 2020-05-21 16:26 | Inpatient (IN) | payer OTHER ==
[2020-05-21] MEDS ORDERED: LORazepam 2 MG/ML VIAL IV PRN (16:34)
[2020-05-21 16:35] VITALS: BMI 34.0
--- OUTSIDE RECORDS SUMMARY | 2020-05-21 16:58 | XMS REPORT | Continuity of Care Document ---
:1975 Author Organization [facility] t Address 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 Family History Family Member Diagnosis Comments Start Date Stop Date Source Natural mother Heart disease [place] [facility] Natural mother Hypertension [place] [facility] Social History Social Habit Start Date Stop Date Quantity Comments Source Sex Assigned At [facility] ethodi Cigarettes smoked 2020-04-14 2020-04-14 [place] [facility] current (pack per 00:00:00 00:00:00 day) - Reported Tobacco use and 2020-04-14 2020-04-14 Never used [facility] ethodist exposure 00:00:00 00:00:00 Alcohol intake 2020-04-14 2020-04-14 Current [facility] thodist 00:00:00 00:00:00 non-drinker of alcohol (finding) Smoking Status Start Date Stop Date Source Current every day smoker 2020-04-14 00:00:00 David Garcia Medications Ordered Filled Start Stop Current Ordering Indication Dosage Frequency Signature Comments Components Source Medication Medication Date Date Medication? Clinician (SIG) Name Name ergocalcife 2019-07 Yes 30073Y Q7D Take [place] 0-05 50,000 [facility] (VITAMIN 10:01: Units by st D2) 50,000 45 mouth once unit a week. capsule traMADol 2019-07- No acute pain 50mg Q.5D Take 50 mg [place] (ULTRAM) 50 0-05 10-05 by mouth 2 M [facility]i mg tablet 10:01: 00:00 (two) st 45 :00 times a day .Acute Pain. cholecalcif 2019-07 2020- No QD Take by Ho leisa aaron, 0-05 10-05 mouth [facility] vitamin D3, 10:01: 00:[address] (VITAMIN 45 :00 D3) 5,000 unit tablet DULoxetine 2019-07 Yes 60mg QD Take 60 mg H ouviky (CYMBALTA) 0-05 by mouth Metho di 60 MG 10:00: daily. st capsule 03 dextrometho 2019-07 Yes 1{capsu Q12H Take 1 [place] rphan-quini 0-05 le} capsule by Or thodi dine 00:00: mouth st (Nuedexta) 00 every 12 20-10 mg (twelve) capsule hours. levothyroxi Yes 50ug QD Take 50 David ston ne 8-18 mcg by [facility] (SYNTHROID) 00:00: mouth st 50 mcg 00 every tablet morning. metFORMIN Yes 1000mg Q.5D Take 1,000 [place] (GLUCOPHAGE 8-06 mg by [facility] ) 1,000 [...] blood 2020-04-14 09:55:00 132 mm[Hg] Gigito n [facility] pressure Diastolic blood 2020-04-14 09:55:00 83 mm[Hg] [place] [facility] pressure Heart rate 2020-04-14 09:55:00 101 /min Alfredo Garcia Body temperature 2020-04-14 09:55:00 36.56 Lizette [place] Body height 2020-04-14 09:55:00 170.2 cm [place] [facility] Body weight 2020-04-14 09:55:00 120.203 kg Alfredo Garcia BMI 2020-04-14 09:55:00 41.50 kg/m2 [place] [facility] Procedures This patient has no known procedures. Plan of Care Planned Activity Planned Date Details Comments Source Future Scheduled 2020-02-09 INFLUENZA VACCINE Faina gotti [facility] Test 00:00:00 [code = INFLUENZA VACCINE] Future Scheduled 1994 Screening for [facility] thodist Test 00:00:00 malignant neoplasm of cervix (procedure) [code = 032476182] Encounters Start End Encounter Admission Attending Care Care Encounter Source Date/Time Date/Time Type Type Clinicians Facility Department ID 2020-04-14 2020-04-14 Outpatient [facility] [id number] [place] 00:00:00 00:00:[address] ALLIE [address] 2019-03-17 2019-03-17 [facility]patient [facility] [id number] [place] 00:00:00 00:00:00 ALLIE [address] [facility] Results This patient has no known results.
--- OUTSIDE RECORDS SUMMARY | 2020-05-21 16:58 | XMS REPORT | Clinical Summary ---
:1975 Author Organization [facility] Address [address] [place] [address] Care Team Providers Name Role Phone MD [...] PBA (pseudobulb ar affect) 04/14/2020 Travel after 05/21/2019 Surgical History Surgery Date Site/Laterality Comments GALLBLADDER [...] Assigned at Date Recorded Not on file Last Filed Vital Signs Vital Sign Reading [...] 10/16/2020 Office Visit Neurology Prakash Franklin MD [address] [facility] [address] [place], [place] [address] [phone] Health Maintenance Due Date Last Done Comments CERVICAL CANCER SCREENING 1994 INFLUENZA VACCINE 02/09/2020 Results Not on fileafter 05/21/2019 Advance Directives For more information, please contact: [phone] Type Date Recorded Patient Remote Medical Coder Explanati on Advance Directives, Living Will and Medical Power of Ship'S Captain
[2020-05-21] MEDS: MORPHINE 2 MG/ML SYR IV SCH ×4 (17:00→23:00)
[2020-05-21] MEDS ORDERED: SCOPOLAMINE HYDROBROMIDE PATCH TD SCH (17:00)
--- NOTE | 2020-05-21 18:20 | P.HP ---
Certification for Inpatient Patient admitted to: Inpatient With expected LOS: >2 Midnights Practitioner: I am a practitioner with admitting privileges, knowledge of patient current condition, hospital course, and medical plan of care. Services: Services provided to patient in accordance with Admission requirements found in Title 42 Section 412.3 of the Code of Federal Regulations Patient History Date of Service: 05/21/20 Reason for admission: ADMITTED TO HOSPICE FOR RESPIRATORY FAILURE History of Present Illness: SANGITA HAS VERY POOR CONDITION WITH BEDBOUND STATUS FROM CEREBELLAR ATAXIA RELATED OBESITY, BEDSORES, DIABETES ETC. SHE COMES WITH LARGE PNEUMONIA AND IS NOT ABLE TO BE EXTUBAED. WE TRIED MULTIPLE TIMES. SHE HAS TWO OPTIONS, ONE TO GO TO LTAC AFTER TRACHEOSTOMY FOR LIFE TIME AND SECOND IS TO WITHDRAW CARE AND SHE MAY NOT LAST MORE THAN A FEW DAYS. SHE IS FULLY AWARE OF WHAT IS GOING ON. NURSE ASKED HER TODAY IN FRONT OF AND SHE DECIDED TO REMOVE TUBE AND LET NATURE TAKE ITS COURSE. I HAD MEETING WITH 8 FAMILY MEMBERS TODAY INCLUDING , DAUGHTER AND MOTHER. ALL AGREED WITH WHAT PATIENT WANTED. THEY WANTED HOSPICE FOR COMFORT CARE. Allergies No Known Allergies Allergy (Verified 05/30/18 14:51) Home medications list reviewed: Yes Home Medications: Duloxetine HCl 60 mg PO DAILY 08/15/19 Atorvastatin Calcium [Lipitor] 40 mg PO BEDTIME 05/15/20 Carbidopa/Levodopa [Carbidopa-Levo 25-100 mg Odt] 2 each PO TID 05/15/20 Ergocalciferol (Vitamin D2) [Vitamin D 50,000 Unit Cap] 50,000 unit PO EVERY 7TH DAY 05/15/20 Levothyroxine [Synthroid] 50 mcg PO [id number] 05/15/20 Metformin ER [Glucophage ER*] 1,000 mg PO BID 05/15/20 - Past Medical/Surgical History Diabetic: No -: Cerebellum Ataxia -: Possible COPD -: Section -: Tubal Ligation -: Cholecystectomy - Family History Family History: Reviewed- Non-Contributory - Family History Mother -: Hypertension - Social History Smoking Status: Unknown if ever smoked Alcohol use: No CD- Drugs: No Caffeine use: No Place of Residence: Home Review of Systems is unable to be obtained Physical Examination - Physical Exam General: Moderate distress, Severe distress, Obese Respiratory: Diminished, Other (STARTS TO GASP FOR AIR WHEN EXTUBATED. ) Assessment and Plan - Problems (Diagnosis) (1) Respiratory failure Current Visit: No Status: Acute Plan: FROM COMBINATION OF MALIK, PNEUMONIA, POOR BODY CONDITION. HP FOR MORE DETAILS. I WILL DO ALL TO KEEP HER COMOFORTABLE. Qualifiers: Respiratory failure complication: hypoxia and hypercapnia - Advance Directives Does patient have a Living Will: No Does patient have a Durable POA for Healthcare: No
[2020-05-21] MEDS ORDERED: MORPHINE 2 MG/ML SYR ONE (20:48)
[2020-05-21 22:48] VITALS: BP 98/59; TEMP 98.4; O2SAT 42
[2020-05-24] MEDS ORDERED: SCOPOLAMINE HYDROBROMIDE PATCH TD SCH (09:00)
== END 2020-05-22 01:30 | disposition expired | DRG 951 ==
LOC: ERHOLD 16:26
PROVIDERS: ADMIT Internal Medicine; ATTEND Internal Medicine
DX: Z51.5 Encounter for palliative care (principal)
CPT/HCPCS: J2270